=== PATIENT | female | born 1970 | race Caucasian/White ===

== ENCOUNTER → 2019-12-15 15:58 | Outpatient (CLI) | payer OTHER, SELFPAY ==
--- NOTE | ~2019-12-15 | MM_ITS ---
EXAMINATION: MM screening [facility] BI w josé miguel HISTORY: Screening mammogram TECHNIQUE: Craniocaudal and mediolateral oblique 3-D tomosynthesis images were obtained and synthetic 2-D images were generated. CAD analysis was submitted and interpreted. COMPARISON: 08/05/2018, 04/09/2017, 02/21/2015 BREAST PARENCHYMAL COMPOSITION: The breasts are heterogeneously dense, which may obscure small masses . FINDINGS: There is no evidence of suspicious mass, calcification, or architectural distortion to sugg est malignancy in either breast. There has been no suspicious interval change. IMPRESSION: 1. No mammographic evidence of malignancy. 2. Recommend routine screening mammography in one year. BI-RADS Category 1: Negative Reviewed, dictated and finalized at location A.
== END ==
PROVIDERS: PCP Family Medicine; Referring Provider Obstetrics & Gynecology; Visit Provider Physician Assistant
DX: Z12.31 Encounter for screening mammogram for malignant neoplasm of breast (principal)
CPT/HCPCS: 77063; 77067

== ENCOUNTER 2020-08-08 11:48 | Outpatient (NON) | payer OTHER, SELFPAY ==
[2020-08-08 14:53] LABS: Influenza Control Positive
== END 2020-08-08 11:49 ==
PROVIDERS: PCP Family Medicine; Visit Provider Nurse Practitioner Family
DX: R05 Cough (principal); R50.9 Fever, unspecified; R51.9 Headache, unspecified
CPT/HCPCS: 87804

== ENCOUNTER 2020-08-16 12:09 | Emergency (ER) | payer OTHER, SELFPAY ==
--- NOTE | ~2020-08-16 | XR_ITS ---
EXAMINATION: XR chest 1V portable EXAM DATE: 08/16/2020 13:53 INDICATION: COVID +. Asthma. TECHNIQUE: Portable AP frontal chest x-ray was obtained. There is no prior study for comparison. FINDINGS: Small amount of left lower lobe atelectasis or infiltrate. The lungs are otherwise clear. There are no pleural effusions. The cardiomediastinal silhouette is within normal limits. There is no pneumothorax suspected. The bones and soft tissues are unremarkable. IMPRESSION: Small amount of left lower lobe atelectasis or infiltrate. Reviewed, dictated and finalized at location A. EAR OFFICER
[2020-08-16 12:10] VITALS: BP 118/91; PULSE 100; RESP 16; TEMP 36.6; O2SAT 96
--- NOTE | 2020-08-16 12:18 | ECG_ITS ---
Measurements Intervals [place] Rate: 87 P: 53 [place]: 134 QRS: -30 QRSD: 77 T: -59 QT: 319 QTc: 385 Interpretive Statements SINUS RHYTHM WITH SINUS ARRHYTHMIA LOW QRS VOLTAGE IN PRECORDIAL LEADS BORDERLINE T WAVE ABNORMALITY- DIFFUSE LEADS BASELINE WANDER- V4-V6 BORDERLINE ECG Electronically Signed On 08-16-2020 17:04:31 JEWEL STRINGER by Sebastien Stone D.O.
[2020-08-16 13:21] VITALS: PULSE 78; RESP 16; O2SAT 98
--- NOTE | 2020-08-16 13:57 | ED.URI ---
HPI - URI/Sore Throat General Chief Complaint: Upper Respiratory Infection Stated Complaint: COVID + needs chest xray Time Seen by Provider: 08/16/20 13:24 Source: patient Mode of arrival: ambulatory Limitations: no limitations History of Present Illness HPI Narrative: Patient is a 49-year-old female who presents with shortness of breath with Covid positive test patient was sent by primary care due to feeling like she still has chest tightness and wheezing does have history of asthma using her inhaler was advised to come for chest x-ray patient otherwise notes that her headache has improved she does not currently have a fever and denies vomiting or diarrhea Related Data Allergies Allergy/AdvReac Type Severity Reaction Status Date / Time Penicillins AdvReac Unknown PT STATES Verified 08/07/20 12:48 IT DOESNT WORK AT ALL Review of Systems Review of Systems: All systems reviewed & are unremarkable except as noted in HPI and below PMFSH Past Medical History Medical History (Updated 08/16/20 @ 14:13 by Tom Maharaj PA-C) Asthma Social History Social History Smoking status: Never smoker Alcohol intake: current Exam Narrative: Exam Narrative: GENERAL: Well-appearing, well-nourished, and in no acute distress. HEAD: Normocephalic, atraumatic. EYES: PERRLA and EOMI. ENT: Nares clear, no rhinorrhea or epistaxis. Mucous membranes moist. CHEST: Clear to auscultation. No respiratory distress. Minimal crackles and slight wheezing noted HEART: Regular rate and rhythm. No murmur heard. Normal peripheral pulses. ABDOMEN: Soft, nontender, nondistended EXTREMITIES: Normal range of motion. No edema. SKIN: Warm, dry, no rash. NEURO: No focal deficits. Alert and oriented x3. PSYCH: Normal mood and affect. Course Course Emergency Course: Patient in the room evaluated negative chest radiograph or concerning findings does likely have Covid pneumonia patient had no hypoxemia no distress will be discharged back to home with plan follow-up with primary care given reasons to return was given an MDI instruct prior to discharge Consultations Consultation #1: Discussed case with primary care who would like the patient put on a Z-Edwin and will follow patient in clinic Date: 08/16/20 Time: 14:28 Vital Signs Vital signs: Vital Signs Temperature 98 F 08/16/20 12:10 Pulse Rate 100 08/16/20 12:10 Respiratory Rate 16 08/16/20 12:10 Blood Pressure 118/91 H 08/16/20 12:10 Pulse Oximetry 96 08/16/20 12:10 Temperature 98 F 08/16/20 12:10 Pulse Rate 68 08/16/20 14:03 Respiratory Rate 18 08/16/20 14:03 Blood Pressure 133/96 H 08/16/20 14:03 Pulse Oximetry 95 08/16/20 14:03 MDM - URI/Sore Throat MDM Narrative Medical decision making narrative: Patient with COVID-19 in the room aware of case findings treatment plan diagnosis agreeing to follow with primary care. Patient afebrile nontoxic-appearing no distress at this time Discharge Plan Discharge Clinical Impression: COVID-19 Patient Disposition: Home, Self-Care Condition: Stable Instructions: Antibiotic Form, COVID-19 (Coronavirus Disease 2019) (ED) Additional Instructions: Follow up with your primary care provider within 1-2 days. Go to ER for shortness of breath, difficulty breathing, chest pain, fever/chills, weakness, nauseau/vomitting, etc. or any other concerns. Stay well-hydrated Take any prescribed medications as directed. Self quarantine until you have further If you do not have a drug allergy to tylenol or motrin and can tolerate it then take tylenol or motrin as needed for discomfort/pain. Prescriptions: New azithromycin [Zithromax TRI-EDWIN] 500 mg tablet See Rx Instructions .ROUTE .COMPLEX Qty: 6 RF: 0 loratadine [Claritin] 10 mg tablet 10 mg PO DAILY PRN (Reason: allergy symptoms) Qty: 7 RF: 0 fluticasone propionate [Flonase Allergy Relief]
[2020-08-16 14:03] VITALS: BP 133/96; PULSE 68; RESP 18; O2SAT 95
--- NOTE | 2020-08-16 15:03 | PC.NURSE ---
Spoke with [facility] and they said they are done with pt. t states she received spacer from [facility]
[2020-08-16 15:06] VITALS: BP 129/97; PULSE 93; RESP 20; O2SAT 95
== END 2020-08-16 15:07 | disposition home or self-care (01) ==
PROVIDERS: Emergency Provider Emergency Medicine; PCP Family Medicine
DX: U07.1 COVID-19 (principal); J45.909 Unspecified asthma, uncomplicated
CPT/HCPCS: 71045; 93005; 99283

== ENCOUNTER → 2021-01-22 12:38 | Outpatient (CLI) | payer OTHER, SELFPAY ==
--- NOTE | ~2021-01-22 | MM_ITS ---
EXAMINATION: MM screening [facility] BI w josé miguel HISTORY: Screening mammogram TECHNIQUE: Craniocaudal and mediolateral oblique 3-D tomosynthesis images were obtained and synthetic 2-D images were generated. CAD analysis was submitted and interpreted. COMPARISON: 12/15/2019, 08/05/2018, 04/09/2017 BREAST PARENCHYMAL COMPOSITION: The breasts are heterogeneously dense, which may obscure small masses . FINDINGS: There is no evidence of suspicious mass, calcification, or architectural distortion to sugg est malignancy in either breast. There has been no suspicious interval change. IMPRESSION: 1. No mammographic evidence of malignancy. 2. Recommend routine screening mammography in one year. BI-RADS Category 1: Negative Reviewed, dictated and finalized at location A.
== END ==
PROVIDERS: PCP Family Medicine; Visit Provider Nurse Practitioner Obstetrics & Gynecology
DX: Z12.31 Encounter for screening mammogram for malignant neoplasm of breast (principal)
CPT/HCPCS: 77063; 77067

== ENCOUNTER → 2022-04-25 15:50 | Outpatient (CLI) | payer OTHER, SELFPAY ==
--- NOTE | ~2022-04-25 | MM_ITS ---
EXAMINATION: MM screening [facility] BI w josé miguel HISTORY: Screening TECHNIQUE: Craniocaudal and mediolateral oblique 3-D tomosynthesis images were obtained and synthetic 2-D images were generated. CAD analysis was submitted and interpreted. COMPARISON: Comparison to multiple prior studies sequentially, with oldest reviewed study dated 11/2013. BREAST PARENCHYMAL COMPOSITION: The breasts are heterogenously dense, which may obscure small masses FINDINGS: There are developing asymmetries in the periareolar location of the left breast, slightly l ateral. The right breast is stable without evidence for malignancy. IMPRESSION: 1. Developing left breast asymmetries. 2. Additional mammographic views and possible breast ultrasound are recommended. BI-RADS Category 0: Incomplete: Needs additional imaging evaluation. Reviewed, dictated and finalized at location A. IMPRESSION: 1. Developing left breast asymmetries. 2. Additional mammographic views and possible breast ultrasound are recommended . BI-RADS Category 0: Incomplete: Needs additional imaging evaluation.
== END ==
PROVIDERS: PCP Family Medicine; Visit Provider Family Medicine
DX: Z12.31 Encounter for screening mammogram for malignant neoplasm of breast (principal); R92.8 Other abnormal and inconclusive findings on diagnostic imaging of breast
CPT/HCPCS: 77063; 77067

== ENCOUNTER → 2022-05-14 14:25 | Outpatient (CLI) | payer OTHER, SELFPAY ==
--- NOTE | ~2022-05-14 | MM_ITS ---
EXAMINATION: MM diagnostic [facility] w josé miguel HISTORY: Left breast asymmetry on screening mammogram TECHNIQUE: Additional 3-D tomosynthesis images of the left breast were performed and synthetic 2-D im ages were generated. CAD analysis was submitted and interpreted. COMPARISON: 04/25/2022, 01/22/2021, 12/15/2019 FINDINGS: There is a return to baseline fibroglandular appearance with spot compression of the left b reast in the area questioned on screening mammogram. IMPRESSION: 1. No mammographic evidence of malignancy. 2. Recommend routine screening mammography in one year. BI-RADS Category 1: Negative Reviewed, dictated and finalized at location A.
== END ==
PROVIDERS: PCP Family Medicine; Visit Provider Nurse Practitioner Family
DX: R92.8 Other abnormal and inconclusive findings on diagnostic imaging of breast (principal)
CPT/HCPCS: 77061; 77065; G0279

== ENCOUNTER 2022-09-06 08:57 | Outpatient (CLI) | payer OTHER, SELFPAY | END 2022-09-06 08:58 | disposition home or self-care (01) | LOC: ANHAUDIO 08:58 | PROVIDERS: PCP Family Medicine; Visit Provider Nurse Practitioner Family | DX: H93.19 Tinnitus, unspecified ear (principal) | CPT/HCPCS: 92552; 92556; 92567 ==

== ENCOUNTER 2022-09-12 19:35 | Emergency (ER) | payer OTHER, SELFPAY ==
--- NOTE | ~2022-09-12 | XR_ITS ---
EXAMINATION: XR chest 2V 09/12/2022 21:31 INDICATION: Dizziness PROCEDURE: 2 view chest COMPARISON: 08/16/2020 FINDINGS: The lungs are clear. The cardiomediastinal silhouette is within normal limits. There are no pleural effusions. There is no pneumothorax suspected. IMPRESSION: 1: NO ACUTE CARDIOPULMONARY DISEASE. Reviewed, dictated and finalized at location A. CH ENGINEER
--- NOTE | ~2022-09-12 | CT_ITS ---
EXAMINATION: CT BRAIN W/O DATE: 09/12/2022 21:35 INDICATION: Dizziness TECHNIQUE: Computed tomography (CT) of the head was performed without intravenous contrast. The dose- length product was 605.33 mGy-cm. Automated exposure control and iterative reconstruction technique w ere employed. COMPARISON: No prior studies for comparison. FINDINGS: Normal brain parenchymal volume for age. Normal vee-white differentiation. No acute intrac ranial hemorrhage, infarction, mass or mass effect. No ventriculomegaly or midline shift. Midline sagittal images demonstrate a normal corpus callosum, c raniovertebral junction and sella turcica. Basilar cisterns are patent. Paranasal sinuses and mastoids are pneumatized. No depressed skull fractures. IMPRESSION: 1. No acute intracranial abnormality. Reviewed, dictated and finalized at location A. WARE ENGINEER [employer]PLICATIONS
[2022-09-12 19:39] VITALS: BP 126/56; PULSE 85; RESP 18; TEMP 36; O2SAT 98
--- NOTE | 2022-09-12 19:43 | ECG_ITS ---
Measurements Intervals [place] Rate: 85 P: 46 [place]: 149 QRS: 1 QRSD: 73 T: 28 QT: 357 QTc: 427 Interpretive Statements SINUS RHYTHM WITH SINUS ARRHYTHMIA LOW QRS VOLTAGE IN PRECORDIAL LEADS [QRS DEFLECTION < 1.0 mV IN CHEST LEADS] MILD NONSPECIFIC T-WAVE ABNORMALITY COMPARED TO ECG 08/16/2020 12:24:36 NO SIGNIFICANT CHANGES Electronically Signed On 09-13-2022 7:44:45 ESCROW SECRETARY by Kevin Andrews M.D.
[2022-09-12 21:46] VITALS: BP 126/78; PULSE 76; RESP 18; O2SAT 99
--- NOTE | 2022-09-12 22:01 | ED.DIZZY ---
HPI - Dizziness General Chief Complaint: Dizziness <Josie Barboza PA-C - Last Filed: 09/13/22 00:43> Stated Complaint: bilateral arm numbness, dizziness since last night <NAYELI Salmeron Last Filed: 09/13/22 00:43> Time Seen by Provider: 09/12/22 21:11 <NAYELI Salmeron Last Filed: 09/13/22 00:43> Source: patient <NAYELI Salmeron Last Filed: 09/13/22 00:43> Mode of arrival: ambulatory <NAYELI Salmeron Last Filed: 09/13/22 00:43> Limitations: no limitations <NAYELI Salmeron Last Filed: 09/13/22 00:43> History of Present Illness HPI Narrative: This is a 51 year old female that presents to the ER for dizziness ongoing over the last couple of weeks. Worse with position changes. Reports feeling woozy/lightheaded upon standing. She was evaluated by her PCP for this and prescribed a steroid and Z pack. She has finished this with little relief. Reports over the last couple of days. She has also noted chest tightness and felt like she couldn't catch her breath. She reports she has had weakness in her arms. Reports she has had palpitations. Reports she had a headache earlier today that was relieved with an anti-inflammatory. Denies vision changes, vomiting or numbness. <Josie Barboza PA-C - Last Filed: 09/13/22 00:43> Related Data Allergies/Adverse Reactions: Allergies Allergy/AdvReac Type Severity Reaction Status Date / Time Penicillins AdvReac Unknown PT STATES Verified 08/22/22 15:09 IT DOESNT WORK AT ALL <NAYELI Salmeron Last Filed: 09/13/22 00:43> Review of Systems Review of Systems: CONSTITUTIONAL: Denies fever EYES: Denies visual changes ENT: Denies congestion CARDIOVASCULAR: Denies current chest pain, or edema. RESPIRATORY: Denies current dyspnea. GASTROINTESTINAL: Denies vomiting GENITOURINARY: Denies dysuria or hematuria. SKIN: Denies rash NEUROLOGIC: Reports weakness. Denies numbness PSYCHIATRIC: Reports anxiety <Josie Barboza PA-C - Last Filed: 09/13/22 00:43> All systems reviewed & are unremarkable except as noted in HPI and below <Josie Barboza PA-C - Last Filed: 09/13/22 00:43> PMFSH Past Medical History Medical History: Medical History (Updated 09/14/22 @ 00:00 by Ras Purdy) Asthma BMI 28.0-28.9,adult BMI 30.0-30.9,adult Body mass index [BMI] 27.0-27.9, adult Encounter for screening colonoscopy Fatigue History of vaginal delivery Menopausal hot flushes Screening for lipid disorders Screening mammogram for high-risk patient <Josie Barboza PA-C - Last Filed: 09/13/22 00:43> Surgical History Surgical History: Surgical History History of repair of ACL <Josie Barboza PA-C - Last Filed: 09/13/22 00:43> Family History Family History: Family History Father Throat cancer Mother Heart disease Sibling Gallstones Other Hypertension <Josie Barboza PA-C - Last Filed: 09/13/22 00:43> Social History Social History: Social History Smoking status: Never smoker Second hand tobacco smoke exposure: Yes Alcohol intake: current Substance use: never Substance use type: does not use 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 HEAD: Normocephalic, atraumatic. EYES: PERRLA and EOMI. ENT: Nares clear, no rhinorrhea or epistaxis. Mucous membranes moist. Oropharynx without tonsillar hypertrophy exudate or other lesions. Bilateral TMs pearly vee non-bulging NECK: Supple. No adenopathy or masses. CHEST: Clear to auscultation. No respiratory distress. No wheezes rales o
[2022-09-12 22:14] LABS: Basophils Percent Auto 0.3 % (0.2-1.2); Eosinophils Absolute Auto 0.2 K/mm3 (0-0.3); Eosinophils Percent Auto 2.4 % (0-4.4); Hematocrit 43.4 % (37.0-47.0); Hemoglobin 14.4 g/dL (12.0-15.0); Immature Granulocyte Absolute 0.04 K/mm3 (0.00-0.031); Immature Granulocyte Percent A 0.4 % (0-0.5); Lymphocytes Absolute Auto 2.38 K/mm3 (0.9-3.2); Lymphocytes Percent Auto 24.9 % (18.3-44.2); Mean Corpuscular HGB Conc 33.2 g/dl (32-36); Mean Corpuscular Hemoglobin 30.1 pg (26-34); Mean Corpuscular Volume 90.6 fl (80-100); Mean Platelet Volume 9.6 fl (7.4-10.4); Monocytes Absolute Auto 0.8 K/mm3 (0.1-0.6); Monocytes Percent Auto 8.7 % (2.6-8.5); Neutrophils Absolute Auto 6.1 K/mm3 (1.3-6.7); Neutrophils Percent Auto 63.3 % (45.5-73.1); Platelet Count Result 227 k/mm3 (150-375); Red Blood Count 4.79 M/mm3 (4.2-5.4); Red Cell Distribution Width 12.4 % (11.5-14.5); White Blood Count 9.6 K/mm3 (4.5-10.0)
[2022-09-12] MEDS: SODIUM CHLORIDE 0.9% IV 500 ML 999 ML IV CONT (22:19)
[2022-09-12] MEDS: MECLIZINE HCL 25 MG TABLET PO (22:19)
[2022-09-12] MEDS: ONDANSETRON INJ 4 MG/2 ML VIAL IV PUSH (22:19)
[2022-09-12 22:22] LABS: Alanine Aminotransferase 45 U/L (6-35); Albumin Level 4.2 g/dL (3.5-5.1); Alkaline Phosphatase 79 U/L (38-126); Anion Gap 4 mmol/L (8-16); Aspartate Amino Transferase 28 U/L (14-36); Bilirubin,Total 0.7 mg/dL (0.2-1.3); Blood Urea Nitrogen 18 mg/dL (7-17); Calcium 8.9 mg/dL (8.4-10.2); Carbon Dioxide 32 mmol/L (22-30); Chloride 105 mmol/L (98-107); Estimated CRCL calculation 69 ml/min; Estimated Glomerular Filt Rate > 60; Glucose 120 mg/dL (65-110); Potassium 3.8 mmol/L (3.4-5.0); Sodium 141 mmol/L (137-145)
[2022-09-12 22:34] LABS: Troponin I < 0.012 ng/mL (0.000-0.034)
[2022-09-12 23:26] LABS: INR 1.1; Partial Thromboplastin Time 25.9 SECONDS (22.3-36.8); Prothrombin Time 13.4 Seconds (11.1-14.7)
[2022-09-12 23:29] LABS: D Dimer 0.48 ug/mL (<0.48)
[2022-09-13 00:32] VITALS: TEMP 36.9
== END 2022-09-13 02:47 | disposition home or self-care (01) ==
PROVIDERS: Physician Assistant; Emergency Provider Emergency Medicine; PCP Family Medicine
DX: R42 Dizziness and giddiness (principal); J45.909 Unspecified asthma, uncomplicated; Z77.22 Contact with and (suspected) exposure to environmental tobacco smoke (acute) (chronic); R94.31 Abnormal electrocardiogram [ECG] [EKG]
CPT/HCPCS: 36415; 70450; 71046; 80053; 84484; 85025; 85380; 85610; 85730; 93005; 96374; 96375; 99284; A9270; J0131; J2405; J7040

== ENCOUNTER 2022-11-27 15:49 | Outpatient (CLI) | payer OTHER, SELFPAY ==
--- NOTE | ~2022-11-27 | XR_ITS ---
EXAMINATION: XR chest 2V 11/27/2022 16:04 INDICATION: Cough and tachycardia PROCEDURE: 2 view chest COMPARISON: 09/12/2022 FINDINGS: The lungs are clear. There is a battery pack overlying the left chest. There is minimal lef t basilar scarring, unchanged. The cardiomediastinal silhouette is within normal limits. There are n o pleural effusions. There is no pneumothorax suspected. IMPRESSION: 1: NO ACUTE CARDIOPULMONARY DISEASE. Reviewed, dictated and finalized at location B. OSURGICAL NURSE
== END 2022-11-27 15:50 | disposition home or self-care (01) ==
LOC: ANHIMG 15:51
PROVIDERS: PCP Family Medicine; Visit Provider Nurse Practitioner Family
DX: R05.9 Cough, unspecified (principal)
CPT/HCPCS: 71046

== ENCOUNTER → 2023-05-22 14:15 | Outpatient (CLI) | payer OTHER, SELFPAY ==
--- NOTE | ~2023-05-22 | MM_ITS ---
EXAMINATION: MM screening [facility] BI w josé miguel HISTORY: Screening TECHNIQUE: Craniocaudal and mediolateral oblique 3-D tomosynthesis images were obtained and synthetic 2-D images were generated. CAD analysis was submitted and interpreted. COMPARISON: Comparison to multiple prior studies sequentially, with oldest reviewed study dated 02/2017. BREAST PARENCHYMAL COMPOSITION: Breast composed of scattered areas of fibroglandular density FINDINGS: There is no evidence of suspicious mass, calcification, or architectural distortion to sugg est malignancy in either breast. There has been no suspicious interval change. IMPRESSION: 1. No mammographic evidence of malignancy. 2. Recommend routine screening mammography in one year. BI-RADS Category 1: Negative Reviewed, dictated and finalized at location A.
== END ==
PROVIDERS: PCP Registered Nurse; Visit Provider Registered Nurse
DX: Z12.31 Encounter for screening mammogram for malignant neoplasm of breast (principal)
CPT/HCPCS: 77063; 77067

== ENCOUNTER → 2023-09-22 09:56 | Outpatient (CLI) | payer OTHER, SELFPAY ==
--- NOTE | ~2023-09-22 | US_ITS ---
Abdominal Sonogram: Real-time sonographic imaging of the abdomen was performed. Clinical History: Abdominal pain Findings: The liver appears normal with no evidence of bile duct dilatation. Suspected 4 cm hyperech oic right hepatic lobe mass present. Probable additional smaller 1.2 cm hyperechoic hepatic mass also noted. There is a third hyperechoic mass measuring 1.9 cm. Main portal vein demonstrates normal dire ction of flow. The spleen is normal in size without evidence of focal lesion. The gallbladder is wel l distended, and appears normal with no evidence of gallstone or wall thickening. The common bile carlie t measures 5 mm. The visualized pancreas, aorta, and IVC are unremarkable. The right kidney measure s 10.6 cm in length and the left kidney measures 11.9 cm. There is no hydronephrosis or renal calcul us. Impression: Hyperechoic hepatic masses, as detailed above, most likely hemangiomas. Pre and postcontrast MR advis ed to confirm this diagnosis. Reviewed, dictated and finalized at location M. RACT CLERK Impression: Hyperechoic hepatic masses, as detailed above, most likely hemangiomas. Pre and postcontrast MR advised to confirm this diagnosis.
== END ==
PROVIDERS: PCP Nurse Practitioner Adult Health; Visit Provider Nurse Practitioner Adult Health
DX: R16.0 Hepatomegaly, not elsewhere classified (principal)
CPT/HCPCS: 76700

== ENCOUNTER 2023-11-23 16:41 | Emergency (ER) | payer OTHER, SELFPAY ==
[2023-11-23 16:52] VITALS: BP 110/77; PULSE 105; RESP 18; TEMP 37.9; O2SAT 94
[2023-11-23 16:54] VITALS: BP 110/77; PULSE 105; RESP 18; TEMP 37.9; O2SAT 94
--- NOTE | 2023-11-23 17:20 | ED.URI ---
HPI - URI/Sore Throat General Chief Complaint: Upper Respiratory Infection Stated Complaint: sorethroat Time Seen by Provider: 11/23/23 17:01 Source: patient and RN notes reviewed Mode of arrival: ambulatory Limitations: no limitations History of Present Illness HPI Narrative: Patient presents today complaining of sore throat, headache, fatigue since yesterday with fever up to 101 today. Denies cough or shortness of breath. She has tried ibuprofen with relief. Pain increases with swallowing. Currently rates her pain 5/10. States has been was sick last week with influenza A. History of asthma for which she uses Dulera. She did not use her Dulera this morning. Related Data Home Medications Medication Instructions Recorded Confirmed multivitamin with minerals-folic tablet PO 03/06/23 04/21/23 acid 200 mcg chewable tablet (Adult Multivitamin Gummies) cholecalciferol (vitamin D3) 1,250 1,250 mcg PO WEEKLY 09/17/23 mcg (50,000 unit) tablet loratadine 10 mg tablet (Allergy 10 mg PO DAILY 09/17/23 Relief (loratadine)) mometasone-formoterol HFA 50 mcg-5 2 puff inhalation Q12H 09/17/23 mcg/actuation aerosol inhaler (Dulera) lactobacillus combination no.8 3 cell 11/23/23 billion cell capsule Allergies Allergy/AdvReac Type Severity Reaction Status Date / Time Penicillins AdvReac Unknown PT STATES Verified 11/23/23 16:53 IT DOESNT WORK AT ALL Review of Systems Review of Systems: CONSTITUTIONAL: Denies body aches, chills, or sweats.+ fever, fatigue EYES: Denies visual changes, redness, or discharge. ENT: Denies rhinorrhea, congestion, or otalgia.+ sore throat CARDIOVASCULAR: Denies chest pain, palpitations, or edema. RESPIRATORY: Denies cough or dyspnea. GASTROINTESTINAL: Denies abdominal pain, nausea, vomiting, or diarrhea. GENITOURINARY: Denies dysuria or hematuria. SKIN: Denies rash, itching, or wounds. MUSCULOSKELETAL: Denies back pain, joint pain, or myalgia. NEUROLOGIC: Denies numbness, tingling, or weakness.+ headache PSYCH: Denies depression or anxiety. [facility] Past Medical History Medical History Asthma Bloating BMI 28.0-28.9,adult BMI 29.0-29.9,adult BMI 30.0-30.9,adult Body mass index [BMI] 27.0-27.9, adult Encounter for screening colonoscopy Fatigue GERD (gastroesophageal reflux disease) Hemangioma History of IBS History of tachycardia History of vaginal delivery History of vertigo Liver mass Menopausal hot flushes Right upper quadrant pain Screening for lipid disorders Screening mammogram for high-risk patient Surgical History Surgical History History of repair of ACL Family History Family History Father Throat cancer Cerebrovascular accident Mother Heart disease Sibling Gallstones Other Hypertension Social History Social History Smoking status: Never smoker Second hand tobacco smoke exposure: Yes Alcohol intake: current Substance use: never Substance use type: does not use Lack of Transportation: No Lack of Food: Never True Current Housing: I Have Housing Concerned About Future Housing: No Difficulty Paying Gas/Electric Bills: No Difficulty Paying for Meds: No Currently Unemployed: No Education: Bachelor's Degree Difficulty w/ Childcare or Family Care: No Living arrangements: with family Occupation/Education: occupation 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 Please see nursing chart for further information. There is no relevant family history
== END 2023-11-23 17:19 | disposition home or self-care (01) ==
PROVIDERS: Emergency Provider Nurse Practitioner; PCP Family Medicine
DX: U07.1 COVID-19 (principal)
CPT/HCPCS: 87081; 87426; 87804; 87880; 99213; G0463

== ENCOUNTER 2024-01-23 08:01 | Outpatient (CLI) | payer OTHER, SELFPAY ==
--- NOTE | ~2024-01-23 | CT_ITS ---
CT of the Abdomen and Pelvis: Indication: Hemangioma Technique: 2.5 mm axial scans were obtained through the abdomen and pelvis prior to and following in travenous administration of 100 cc of Omnipaque 350. Dose reduction technique was used on this scan b y utilizing automated exposure control and iterative reconstruction technique. The dose-length produc t (DLP) was 956.28 mGy-cm. Correlation made with ultrasound dated 09/22/2023. Findings: Scans through the lung bases demonstrate linear scarring right middle lobe and left lung b ase with mild bronchiolectasis. There is a 4.8 x 3.8 cm hypodense mass in the central liver, relatively nonenhancing over the imaging phases on this exam. There is a similar-appearing indeterminate 1.5 cm lesion in the inferior, poste rior hepatic lobe (axial image 42). Several more conspicuous, discrete hypodense left hepatic lobe le sions have an appearance most suggestive of cysts. The spleen, pancreas, gallbladder, adrenals and ki dneys are within normal limits. No evidence of aortic aneurysm. No lymphadenopathy. No bowel obstruction or bowel wall thickening. There is no evidence to suggest acute appendicitis. Images through the pelvis were performed. Urinary bladder unremarkable. IUD in place. No adnexal mass seen. No ascites. Impression: Dominant 4.8 x 3.8 cm hypodense central hepatic mass, with multiple additional smaller hepatic lesion s, as above. Lesions do not demonstrate classic imaging features of hemangioma on this exam. Diagnost ic and sections include atypical hemangiomas versus other mass lesions. Recommend pre and postcontras t MR and/or nuclear medicine red blood cell scan to further evaluate for atypical hemangiomas versus other etiology for mass lesions. Probable chronic findings at the lung bases, as above. Reviewed, dictated and finalized at location M. Impression: Dominant 4.8 x 3.8 cm hypodense central hepatic mass, with multiple additional smaller hepatic lesions, as above. Lesions do not demonstrate classic imaging f eatures of hemangioma on this exam. Diagnostic and sections include atypical he mangiomas versus other mass lesions. Recommend pre and postcontrast MR and/or [facility] red blood cell scan to further evaluate for atypical hemangioma s versus other etiology for mass lesions. Probable chronic findings at the lung bases, as above.
[2024-01-23 08:47] LABS: Basophils Percent Auto 0.2 % (0.2-1.2); Eosinophils Absolute Auto 0.1 K/mm3 (0-0.3); Eosinophils Percent Auto 2.3 % (0-4.4); Hematocrit 41.5 % (37.0-47.0); Hemoglobin 13.5 g/dL (12.0-15.0); Immature Granulocyte Absolute 0.02 K/mm3 (0.00-0.031); Immature Granulocyte Percent A 0.4 % (0-0.5); Lymphocytes Absolute Auto 1.49 K/mm3 (0.9-3.2); Lymphocytes Percent Auto 28.4 % (18.3-44.2); Mean Corpuscular HGB Conc 32.5 g/dl (32-36); Mean Corpuscular Hemoglobin 29.9 pg (26-34); Mean Corpuscular Volume 91.8 fl (80-100); Mean Platelet Volume 9.4 fl (7.4-10.4); Monocytes Absolute Auto 0.5 K/mm3 (0.1-0.6); Monocytes Percent Auto 9.9 % (2.6-8.5); Neutrophils Absolute Auto 3.1 K/mm3 (1.3-6.7); Neutrophils Percent Auto 58.8 % (45.5-73.1); Platelet Count Result 192 k/mm3 (150-375); Red Blood Count 4.52 M/mm3 (4.2-5.4); Red Cell Distribution Width 12.4 % (11.5-14.5); White Blood Count 5.3 K/mm3 (4.5-10.0)
[2024-01-23 09:04] LABS: Alanine Aminotransferase 16 U/L (6-35); Alkaline Phosphatase 68 U/L (38-126); Anion Gap 3 mmol/L (4-12); Aspartate Amino Transferase 18 U/L (14-36); Bilirubin,Total 0.6 mg/dL (0.2-1.3); Blood Urea Nitrogen 14 mg/dL (7-17); Calcium 9.3 mg/dL (8.4-10.2); Carbon Dioxide 30 mmol/L (22-30); Chloride 107 mmol/L (98-107); Estimated Glomerular Filt Rate > 60; Glucose 102 mg/dL (65-110); Potassium 4.4 mmol/L (3.4-5.0); Sodium 140 mmol/L (137-145)
== END 2024-01-23 08:02 | disposition home or self-care (01) ==
LOC: ANHIMG 08:02
PROVIDERS: PCP Family Medicine; Visit Provider Nurse Practitioner Adult Health
DX: D18.00 Hemangioma unspecified site (principal)
CPT/HCPCS: 36415; 74178; 80053; 85025; Q9967

== ENCOUNTER 2024-07-01 14:03 | Outpatient (CLI) | payer OTHER, SELFPAY ==
--- NOTE | ~2024-07-01 | MM_ITS ---
EXAMINATION: MM screening [facility] BI w josé miguel HISTORY: Screening TECHNIQUE: Craniocaudal and mediolateral oblique 3-D tomosynthesis images were obtained and synthetic 2-D images were generated. CAD analysis was submitted and interpreted. COMPARISON: Comparison to multiple prior studies sequentially, with oldest reviewed study dated 07/08. BREAST PARENCHYMAL COMPOSITION: Not dense: There are scattered areas of fibroglandular density. FINDINGS: There is no evidence of suspicious mass, calcification, or architectural distortion to sugg est malignancy in either breast. There has been no suspicious interval change. IMPRESSION: 1. No mammographic evidence of malignancy. 2. Recommend routine screening mammography in one year. BI-RADS Category 1: Negative Reviewed, dictated and finalized at location B.
== END 2024-07-01 14:04 | disposition home or self-care (01) ==
LOC: MICIMG 14:05
PROVIDERS: PCP Nurse Practitioner Family; Visit Provider Nurse Practitioner Family
DX: Z12.31 Encounter for screening mammogram for malignant neoplasm of breast (principal)
CPT/HCPCS: 77063; 77067

== ENCOUNTER 2024-08-17 14:18 | Emergency (ER) | payer OTHER, SELFPAY ==
--- NOTE | ~2024-08-17 | XR_ITS ---
XR chest 2V Ordering provider: Jessica Norwood APRN History: 53 years Female with . cough x 1 day . Comparison: None. FINDINGS: MEDIASTINUM: The cardiac silhouette is not enlarged. LUNGS: No effusions or pneumothorax. Prominent markings in the lower lobes. Possibility of atelectasi s versus minimal pneumonia in the middle lobe is not excluded. OTHER: No free air under the diaphragm. IMPRESSION: Prominent markings in the lower lobes with possible atelectasis versus early pneumonia in the middle lobe. Reviewed, dictated and finalized at location A. MENT CONTROL CLERK IMPRESSION: Prominent markings in the lower lobes with possible atelectasis versus early pn eumonia in the middle lobe.
--- NOTE | 2024-08-17 14:30 | ED.URI ---
HPI - URI/Sore Throat General Chief Complaint: Upper Respiratory Infection Stated Complaint: cough / fever / sore throat Time Seen by Provider: 08/17/24 14:35 Source: patient, RN notes reviewed and old records reviewed Mode of arrival: ambulatory Limitations: no limitations History of Present Illness HPI Narrative: 53-year-old female presents to the [facility] with 2 day history of cough, fevers, sore throat. Related Data Home Medications Medication Instructions Recorded Confirmed cholecalciferol (vitamin D3) 1,250 1,250 mcg PO WEEKLY 09/17/23 08/17/24 mcg (50,000 unit) tablet loratadine 10 mg tablet (Allergy 10 mg PO DAILY 09/17/23 08/17/24 Relief (loratadine)) Allergies Allergy/AdvReac Type Severity Reaction Status Date / Time Penicillins AdvReac Unknown PT STATES Verified 05/10/24 12:32 IT DOESNT WORK AT ALL Review of Systems Review of Systems: All systems reviewed & are unremarkable except as noted in HPI and below Constitutional: Constitutional: Reports as per HPI ENT: Reports as per HPI and Reports sore throat Cardiovascular: Cardiovascular: Reports no additional cardiovascular complaints, Denies chest pain and Denies dyspnea Respiratory: Respiratory: Reports as per HPI, Denies chest congestion, Reports cough and Denies dyspnea Gastrointestinal: Gastrointestinal: Reports no additional gastrointestinal complaints, Denies abdominal pain, Denies nausea and Denies vomiting Musculoskeletal: Musculoskeletal: Reports no additional musculoskeletal complaints Integumentary/Breasts: Skin/Breast: Reports system reviewed and no additional complaints, except as docu PMFSH Past Medical History Medical History Asthma Bloating BMI 28.0-28.9,adult BMI 29.0-29.9,adult BMI 30.0-30.9,adult Body mass index [BMI] 27.0-27.9, adult Encounter for screening colonoscopy Fatigue GERD (gastroesophageal reflux disease) Hemangioma History of IBS History of tachycardia History of vaginal delivery History of vertigo Liver mass Menopausal hot flushes Right upper quadrant pain RLQ abdominal pain Screening for lipid disorders Screening mammogram for high-risk patient Weight gain Surgical History Surgical History History of repair of ACL Family History Family History Father Throat cancer Cerebrovascular accident Mother Heart disease Sibling Gallstones Other Hypertension Social History Social History Smoking status: Never smoker Second hand tobacco smoke exposure: Yes Alcohol intake: current Substance use: never Substance use type: does not use Do You Feel Safe in your Home?: Yes Lack of Transportation: No Lack of Food: Never True Current Housing: I Have Housing Concerned About Future Housing: No Difficulty Paying Gas/Electric Bills: No Difficulty Paying for Meds: No Currently Unemployed: No Education: Bachelor's Degree Difficulty w/ Childcare or Family Care: No Living arrangements: with family Occupation/Education: occupation 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 There is no relevant family history pertinent to the patient complaint. Exam Const: General: cooperative, healthy appearing, comfortable, no acute distress, well developed, alert and well nourished Nutritional Appearance: well nourished Orientation/consciousness: patient oriented x3 Limitations: no limitations HENMT: Head: normal to inspection Ears: hearing grossly normal bilaterally, external ears normal, TM's normal bilaterally, EAC's normal, mastoids normal and no periauricular adenopathy Face/Nose/Sinus: Normal external nose present, normal facial exam and face symmetric Face and sinus: normal facial exam and face symmetric Mouth: Yes Normal oral and palatal mucosa present, Yes lip normal and Yes tongue normal Throat: posterior oropharynx normal, uvula midline and no uvular edema Eyes: General: appearance normal, both eyes and all related structures Alignment and Position: alignment normal Periorbital: periorbital findings normal Neck: Neck: normal visual inspection, full ROM, no lymphadenopathy and no meningeal signs Chest: Chest palpation & inspection: normal inspection of the chest Resp: Effort & Inspection: normal respiratory effort and able to speak in complete sentences Auscultation: clear to auscultation bilaterally, no crackles, no rales, no rhonchi and no wheezes Cardio: Rate: regular rate Skin: General skin exam: normal color and no rashes or lesions noted Lesions: no lesions Rashes: no rashes Wounds: no wounds Neuro: General: patient oriented x3, gait normal, tone normal, moves all extremities and no meningeal signs Cognition (Neuro): normal cognition Speech: normal speech Gait exam (Neuro): Normal gait present Extrem: General: normal to inspection, full ROM, capillary refill normal and normal gait Psych: Appearance: grossly normal and well kempt Mental Status: mental status grossly normal Speech and movement: Normal speech and movement present and Clear speech present Affect: normal affect Attitude: cooperative Course Course Level of Care: Express Care Visit Vital Signs Vital signs: Vital Signs Temperature 97.8 F 08/17/24 14:32 Pulse Rate 95 08/17/24 14:32 Respiratory Rate 16 08/17/24 14:32 Blood Pressure 105/82 08/17/24 14:32 Pulse Oximetry 97 08/17/24 14:32 Oxygen Delivery Room Air 08/17/24 14:32 Temperature 97.8 F 08/17/24 14:32 Pulse Rate 95 08/17/24 14:32 Respiratory Rate 16 08/17/24 14:32 Blood Pressure 105/82 08/17/24 14:32 Pulse Oximetry 97 08/17/24 14:32 Oxygen Delivery Room Air 08/17/24 14:32 Reviewed MDM - URI/Sore Throat MDM Narrative Medical decision making narrative: Patient sitting comfortably in exam room. Nontoxic, vitals stable. Patient in no acute distress Patient is flu, COVID, strep pr negative Chest x-ray showed atelectasis, possible early pneumonia, will treat Patient appropriate for outpatient treatment and follow-up Discharge instructions reviewed with patient, as well as provided in writing per nursing staff. The instructions also include specific and strict return/GO TO THE ER as well as f/u information. All questions have been answered, and the patient deny any further questions with discharge and discharge plan. Some parts of this dictation were generated by voice recognition software and may contain typographical and/or grammatical inaccuracies. Differential Diagnosis Differential diagnosis: Likely upper respiratory infection, otitis media, sinusitis, viral infection, bronchitis, influenza and pharyngitis Lab Data Labs: Lab Results 08/17/24 Range/Units 14:57 POC Influenza A Ag Negative (Negative) POC Influenza B Ag Negative (Negative) POC SARS CoV-2 Ag Negative (Negative) POC Grp A Strep Screen Negative (Negative) Reviewed Imaging Data Radiologist's impression: XR chest 2V Ordering provider: Jessica Norwood APRN History: 53 years Female with . cough x 1 day . Comparison: None. FINDINGS: MEDIASTINUM: The cardiac silhouette is not enlarged. LUNGS: No effusions or pneumothorax. Prominent markings in the lower lobes. Possibility of atelectasis versus minimal pneumonia in the middle lobe is not excluded. OTHER: No free air under the diaphragm. IMPRESSION: Prominent markings in the lower lobes with possible atelectasis versus early pneumonia in the middle lobe. Critical Care Time Critical Care Time Critical Care Time: No Discharge Plan Discharge Clinical Impression: Acute atelectasis, Pneumonia Patient Disposition: Home, Self-Care Condition: Stable Instructions: Community Acquired Pneumonia (DC), Atelectasis (ED) Additional Instructions: Your rapid strep swab was negative today at [facility]. A throat culture will be sent to the laboratory for further testing. If the test is positive, you will receive a phone call within 48 hours and an appropriate antibiotic will be initiated at that time. Your rapid COVID test were negative Your rapid flu test was negative Your chest x-ray showed atelectasis in your lower lobes and a possible early pneumonia in your right middle lobe. You been treated with an antibiotic. It is important you take 10 good deep breaths every hour while awake. -Alternate Tylenol and Motrin per package directions for fever or pain. -Antihistamine medication such as Benadryl at night and Zyrtec/Claritin/Estrella during the day can help improve symptoms. -doing daily nasal irrigations can help relieve pressure your sinuses. Things like a Neti pot -Use Flonase twice a day for 5 days then daily to help reduce the inflammation and dry up your sinuses. -You can also use Mucinex. Be sure to drink plenty of water with this medication at least 8 ounces with every dose and it is important to drink 8 to 10 glasses of water per day. Water is a natural decongestant -Eat and drink things that are easy to swallow, like tea or soup, or popsicles. -Oral rinses such as: Salt water gargles and/or may use topical anesthetic (eg. Chloraseptic spray) or lozenges to relieve dryness or throat pain). -Frequent hand washing or hand packer inspector is one of the best ways to prevent spread of infection. -Using a vaporizer or humidifier at night will also help thin secretions and help with coughing up phlegm. -Follow up with primary care provider in 7-10 days if condition is not improving - For new or worsening symptoms go directly to the nearest ER Patient Language: Yi Prescriptions: New doxycycline monohydrate 100 mg tablet 100 mg PO BID Qty: 14 0RF albuterol sulfate 90 mcg/actuation HFA aerosol inhaler 2 puff inhalation QID PRN (Reason: shortness of breath or wheezing) Qty: 6.7 0RF No Action loratadine [Allergy Relief (loratadine)] 10 mg tablet 10 mg PO DAILY Patient Comments: pulmonology-[facility] cholecalciferol (vitamin D3) 1,250 mcg (50,000 unit) tablet 1,250 mcg PO WEEKLY Follow-up/Referrals: Bryan Pollock MD [Primary Care Provider] - 1 Week (express care follow up ) Stand Alone Forms: Work/School Release IP Time of Disposition: 15:03
[2024-08-17 14:32] VITALS: BP 105/82; PULSE 95; RESP 16; TEMP 36.6; O2SAT 97
[2024-08-17 14:58] LABS: EDCOVIDSCREEN Negative (Negative); EDINFLUASCREEN Negative (Negative); EDINFLUBSCREEN Negative (Negative); EDSTREPNEGPOS1 Negative (Negative)
== END 2024-08-17 15:13 | disposition home or self-care (01) ==
PROVIDERS: Emergency Provider Nurse Practitioner; PCP Family Medicine
DX: J98.11 Atelectasis (principal); J18.9 Pneumonia, unspecified organism; Z20.822 Contact with and (suspected) exposure to COVID-19; J45.909 Unspecified asthma, uncomplicated; K21.9 Gastro-esophageal reflux disease without esophagitis
CPT/HCPCS: 71046; 87081; 87426; 87804; 87880; 99213; G0463

== ENCOUNTER 2024-11-01 10:34 | Emergency (ER) | payer OTHER, SELFPAY ==
--- NOTE | ~2024-11-01 | CT_ITS ---
CT of the Abdomen and Pelvis: Indication: Abdominal pain Technique: 2.5 mm axial scans were obtained through the abdomen and pelvis following intravenous adm inistration of 100 cc of Omnipaque 350. Dose reduction technique was used on this scan by utilizing a utomated exposure control and iterative reconstruction technique. The dose-length product (DLP) was 3 38.87 mGy-cm. COMPARISON: 01/23/2024 Findings: Scans through the lung bases demonstrates stable linear left basilar scarring. Dominant 5.3 x 3.7 cm hypodense mass in the central liver is unchanged from prior exam. Stable smalle r similar hypodense lesion in the inferior right hepatic lobe. Additional more circumscribed fluid at tenuation probable simple cysts are present scattered, predominantly in the left hepatic lobe, also u nchanged.. The spleen, pancreas, gallbladder, adrenals and kidneys are within normal limits. No evid ence of aortic aneurysm. No lymphadenopathy. There is wall thickening and pericolic inflammatory change at the proximal to mid sigmoid colon, comp atible diverticulitis/colitis. No abscess or free air. No bowel obstruction. Images through the pelvis were performed. 2 cm left ovarian cyst present. IUD in place. Urinary bladd er unremarkable. No ascites. Impression: Acute sigmoid diverticulitis, versus possibly other colitis, as detailed above. No abscess or free ai r. No bowel obstruction. Stable dominant 5.3 x 3.7 cm central hypodense hepatic mass with smaller, similar-appearing lesion in the inferior right hepatic lobe. These lesions remain indeterminate by imaging, though stability is a reassuring sign. Additional hepatic cysts, also unchanged. Reviewed, dictated and finalized at [facility]. OPE TECHNICIAN Impression: Acute sigmoid diverticulitis, versus possibly other colitis, as detailed above. No abscess or free air. No bowel obstruction. Stable dominant 5.3 x 3.7 cm central hypodense hepatic mass with smaller, simil ar-appearing lesion in the inferior right hepatic lobe. These lesions remain in determinate by imaging, though stability is a reassuring sign. Additional hepatic cysts, also unchanged.
[2024-11-01 11:22] VITALS: BP 110/71; PULSE 94; RESP 16; TEMP 36.9; O2SAT 98
--- NOTE | 2024-11-01 11:35 | ECG_ITS ---
Test Date: 2024-11-01 12:33:10 Measurements Intervals [place] Rate: 94 P: 42 AK: 156 QRS: -53 QRSD: 73 T: 26 QT: 322 QTc: 403 Interpretive Statements SINUS RHYTHM MARKED LEFT AXIS DEVIATION [QRS AXIS < -30] LOW QRS VOLTAGE IN PRECORDIAL LEADS [QRS DEFLECTION < 1.0 mV IN CHEST LEADS] POSSIBLE RIGHT VENTRICULAR CONDUCTION DELAY [RSR (QR) IN V1/V2] poor R-wave progression No previous ECG available for comparison Electronically Signed On 11-01-2024 13:38:31 LOGISTICS SERVICE REPRESENTATIVE by Adrian Marcano M.D.
--- NOTE | 2024-11-01 11:36 | ED_ITS ---
HPI - Abdominal Pain General Chief Complaint: Abdominal Pain <Kendra Jarvis APRN - Last Filed: 11/01/24 11:38> Stated Complaint: Left lower abd pain since Sat <Kendra Jarvis APRN - Last Filed: 11/01/24 11:38> Time Seen by Provider: 11/01/24 11:15 <Kendra Jarvis APRN - Last Filed: 11/01/24 11:38> Focused HPI: Patient is a 53-year-old female who presents to the ER with sharp lower left quadrant abdominal pain that started 2 days ago. She reports the pain is intermittent. Patient reports she has an IUD that was checks approximately 1 month ago. She reports she had a bowel movement yesterday that was normal for her. Patient denies any medical history besides asthma. She denies any chest pain, shortness of breath, recent fevers, back pain, urinary symptoms. GENERAL: Well-appearing, well-nourished, and in no acute distress. HEAD: Normocephalic, atraumatic. CHEST: Clear to auscultation. ?No respiratory distress. HEART: Regular rate and rhythm.? NEURO: ?Alert and oriented x3. ABDOMEN: + BS, LLQ pain increases with palpation Patient screened in triage and initial orders placed.? ?Additional care and disposition to be based upon?diagnostic testing and treatment. <Kendra Jarvis APRN - Last Filed: 11/01/24 11:38> Related Data Home Medications: Home Medications ?Medication ?Instructions ?Recorded ?Confirmed ?Last Taken ?Type cholecalciferol (vitamin D3) 1,250 1,250 mcg PO WEEKLY 09/17/23 08/17/24 Unknown History mcg (50,000 unit) tablet loratadine 10 mg tablet (Allergy 10 mg PO DAILY 09/17/23 08/17/24 Unknown History Relief (loratadine)) <Kendra Jarvis APRN - Last Filed: 11/01/24 11:38> Allergies/Adverse Reactions: Allergies Allergy/AdvReac Type Severity Reaction Status Date / Time Penicillins AdvReac Unknown PT STATES Verified 11/01/24 13:46 IT DOESNT WORK AT ALL <Kendra Jarvis APRN - Last Filed: 11/01/24 11:38> PMFSH Past Medical History Medical History: Medical History Asthma Bloating BMI 28.0-28.9,adult BMI 29.0-29.9,adult BMI 30.0-30.9,adult Body mass index [BMI] 27.0-27.9, adult Encounter for screening colonoscopy Fatigue GERD (gastroesophageal reflux disease) Hemangioma History of IBS History of tachycardia History of vaginal delivery History of vertigo Liver mass Menopausal hot flushes Right upper quadrant pain RLQ abdominal pain Screening for lipid disorders Screening mammogram for high-risk patient Weight gain <Kendra Jarvis APRN - Last Filed: 11/01/24 11:38> Surgical History Surgical History: Surgical History History of repair of ACL <Kendra Jarvis APRN - Last Filed: 11/01/24 11:38> Family History Family History: Family History Father Throat cancer Cerebrovascular accident Mother Heart disease Sibling Gallstones Other Hypertension <Kendra Jarvis APRN - Last Filed: 11/01/24 11:38> Social History Social History: Social History Smoking status: Never smoker Second hand tobacco smoke exposure: Yes Alcohol intake: current Substance use: never Substance use type: does not use Do You Feel Safe in your Home?: Yes Lack of Transportation: No Lack of Food: Never True Current Housing: I Have Housing Concerned About Future Housing: No Difficulty Paying Gas/Electric Bills: No Difficulty Paying for Meds: No Currently Unemployed: No Education: Bachelor's Degree Difficulty w/ Childcare or Family Care: No Living arrangements: with family Occupation/Education: occupation 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 Head: atraumatic. EYES: EOMI, NOSE: Atraumatic NECK: Trachea midline RESPIRATORY: No increased rate of breathing, CTAB CARDIOVASCULAR: RRR, ABDOMINAL: Non-distended, tender in the left lower quadrant MUSCULOSKELETAl: No obvious deformities NEURO: Alert. Moving 4/4 extremities SKIN:: Warm, dry. Normal color PSYCHIATRIC: Normal affect <Hans Guzman MD - Last Filed: 11/01/24 13:49> Course Vital Signs Vital signs: Vital Signs Temperature 98.4 F 11/01/24 11:22 Pulse Rate 94 11/01/24 11:22 Respiratory Rate 16 11/01/24 11:22 Blood Pressure 110/71 11/01/24 11:22 Pulse Oximetry 98 11/01/24 11:22 Oxygen Delivery Room Air 11/01/24 11:22 Temperature 98.4 F 11/01/24 11:22 Pulse Rate 94 11/01/24 11:22 Respiratory Rate 16 11/01/24 11:22 Blood Pressure 110/71 11/01/24 11:22 Pulse Oximetry 98 11/01/24 11:22 Oxygen Delivery Room Air 11/01/24 11:22 <Kendra Jarvis, FILM SOUND ENGINEER - Last Filed: 11/01/24 11:38> Vital Signs Temperature 98.4 F 11/01/24 11:22 Pulse Rate 94 11/01/24 11:22 Respiratory Rate 16 11/01/24 11:22 Blood Pressure 110/71 11/01/24 11:22 Pulse Oximetry 98 11/01/24 11:22 Oxygen Delivery Room Air 11/01/24 11:22 Temperature 98.4 F 11/01/24 11:22 Pulse Rate 94 11/01/24 11:22 Respiratory Rate 16 11/01/24 11:22 Blood Pressure 110/71 11/01/24 11:22 Pulse Oximetry 98 11/01/24 11:22 Oxygen Delivery Room Air 11/01/24 11:22 <Hans Guzman MD - Last Filed: 11/01/24 13:49> MDM - Abdominal Pain MDM Narrative Medical decision making narrative: -Course: 53-year-old female presenting quadrant pain. CT showed uncomplicated diverticulitis versus colitis. White count 11.6. Fevers of 100.1 at home. Patient will be discharged on a course of augmentin. Patient provided pain control and return precautions. Patient has an incidental liver mass on imaging. It is stable. Patient was informed of the mass and needs to be evaluated on an outpatient basis by her primary care physician. -DDX includes but is not limited to: Colitis, diverticulitis, gastroenteritis -Co-morbidities complicating care: Diverticulosis -Independent interpretation of studies: Labs imaging reviewed -Interventions: Dilaudid, Zofran, Toradol -Shared decision making / Disposition: Discharged. -RX Augmentin, Motrin, Tylenol <Hans Guzman MD - Last Filed: 11/01/24 13:49> Lab Data Result diagrams: 11/01/24 12:38 11/01/24 12:38 <Kendra Jarvis APRN - Last Filed: 11/01/24 11:38> Labs: Lab Results 11/01/24 11/01/24 Range/Units 12:38 13:08 WBC 11.6 H (4.5-10.0) K/mm3 RBC 4.95 (4.2-5.4) M/mm3 Hgb 15.2 H (12.0-15.0) g/dL Hct 44.7 (37.0-47.0) % MCV 90.3 (80-100) fl MCH 30.7 (26-34) pg MCHC 34.0 (32-36) g/dl RDW 12.2 (11.5-14.5) % Plt Count 189 (150-375) k/mm3 MPV 9.6 (7.4-10.4) fl Immature Gran % (Auto) 0.3 (0-0.5) % Neut % (Auto) 77.4 H (45.5-73.1) % Lymph % (Auto) 12.1 L (18.3-44.2) % [place] % (Auto) 9.7 H (2.6-8.5) % Eos % (Auto) 0.2 (0-4.4) % Baso % (Auto) 0.3 (0.2-1.2) % Lymph # (Auto) 1.40 (0.9-3.2) K/mm3 [place] # (Auto) 1.1 H (0.1-0.6) K/mm3 Eos # (Auto) 0.0 (0-0.3) K/mm3 Baso # (Auto) 0.0 (0.0-0.1) K/mm3 Abs Immat Gran (auto) 0.04 H (0.00-0.031) K/mm3 Absolute Neuts (auto) 9.0 H (1.3-6.7) K/mm3 Absolute Nucleated RBC 0.000 (0.0-0.012) K/mm3 Nucleated RBC % 0.0 (0.0-0.2) % PT 15.1 H (11.1-14.7) Seconds INR 1.1 APTT 28.1 (22.3-36.8) Seconds Sodium 134 L (137-145) mmol/L Potassium 4.0 (3.4-5.0) mmol/L Chloride 102 (98-107) mmol/L Carbon Dioxide 27 (22-30) mmol/L Anion Gap 5 (4-12) mmol/L BUN 13 (7-17) mg/dL Creatinine 0.68 L (0.7-1.0) mg/dL Estim Creat Clear Calc 78 ml/min Estimated GFR > 60 (59 - ) Glucose 98 (65-110) mg/dL Calcium 8.8 (8.4-10.2) mg/dL Total Bilirubin 1.6 H (0.2-1.3) mg/dL AST 25 (14-36) U/L ALT 28 (6-35) U/L Alkaline Phosphatase 74 (38-126) U/L Troponin I < 0.012 (0.000-0.034) ng/mL Total Protein 7.0 (6.3-8.2) g/dL Albumin 4.2 (3.5-5.1) g/dL Lipase 57 (23-300) U/L Urine Color Pending Urine Appearance Pending Urine pH Pending Ur Specific [place] Pending Urine Protein Pending Urine Glucose (UA) Pending Urine Ketones Pending Ur Blood (Man) Pending Urine Nitrate Pending Urine Bilirubin Pending Urine Urobilinogen Pending Leukocyte Esterase Rfl Pending <Kendra Jarvis, FILM SOUND ENGINEER - Last Filed: 11/01/24 11:38> Lab Results 11/01/24 11/01/24 Range/Units 12:38 13:08 WBC 11.6 H (4.5-10.0) K/mm3 RBC 4.95 (4.2-5.4) M/mm3 Hgb 15.2 H (12.0-15.0) g/dL Hct 44.7 (37.0-47.0) % MCV 90.3 (80-100) fl MCH 30.7 (26-34) pg MCHC 34.0 (32-36) g/dl RDW 12.2 (11.5-14.5) % Plt Count 189 (150-375) k/mm3 MPV 9.6 (7.4-10.4) fl Immature Gran % (Auto) 0.3 (0-0.5) % Neut % (Auto) 77.4 H (45.5-73.1) % Lymph % (Auto) 12.1 L (18.3-44.2) % [place] % (Auto) 9.7 H (2.6-8.5) % Eos % (Auto) 0.2 (0-4.4) % Baso % (Auto) 0.3 (0.2-1.2) % Lymph # (Auto) 1.40 (0.9-3.2) K/mm3 [place] # (Auto) 1.1 H (0.1-0.6) K/mm3 Eos # (Auto) 0.0 (0-0.3) K/mm3 Baso # (Auto) 0.0 (0.0-0.1) K/mm3 Abs Immat Gran (auto) 0.04 H (0.00-0.031) K/mm3 Absolute Neuts (auto) 9.0 H (1.3-6.7) K/mm3 Absolute Nucleated RBC 0.000 (0.0-0.012) K/mm3 Nucleated RBC % 0.0 (0.0-0.2) % PT 15.1 H (11.1-14.7) Seconds INR 1.1 APTT 28.1 (22.3-36.8) Seconds Sodium 134 L (137-145) mmol/L Potassium 4.0 (3.4-5.0) mmol/L Chloride 102 (98-107) mmol/L Carbon Dioxide 27 (22-30) mmol/L Anion Gap 5 (4-12) mmol/L BUN 13 (7-17) mg/dL Creatinine 0.68 L (0.7-1.0) mg/dL Estim Creat Clear Calc 78 ml/min Estimated GFR > 60 (59 - ) Glucose 98 (65-110) mg/dL Calcium 8.8 (8.4-10.2) mg/dL Total Bilirubin 1.6 H (0.2-1.3) mg/dL AST 25 (14-36) U/L ALT 28 (6-35) U/L Alkaline Phosphatase 74 (38-126) U/L Troponin I < 0.012 (0.000-0.034) ng/mL Total Protein 7.0 (6.3-8.2) g/dL Albumin 4.2 (3.5-5.1) g/dL Lipase 57 (23-300) U/L Urine Color Pending Urine Appearance Pending Urine pH Pending Ur Specific [place] Pending Urine Protein Pending Urine Glucose (UA) Pending Urine Ketones Pending Ur Blood (Man) Pending Urine Nitrate Pending Urine Bilirubin Pending Urine Urobilinogen Pending Leukocyte Esterase Rfl Pending <Hans Guzman MD - Last Filed: 11/01/24 13:49> Imaging Data Radiologist's impression: ITS Impressions Abdomen/Pelvis CT 11/01/24 13:24 Impression: Acute sigmoid diverticulitis, versus possibly other colitis, as detailed above. No abscess or free air. No bowel obstruction. Stable dominant 5.3 x 3.7 cm central hypodense hepatic mass with smaller, similar-appearing lesion in the inferior right hepatic lobe. These lesions remain indeterminate by imaging, though stability is a reassuring sign. Additional hepatic cysts, also unchanged. <Kendra Jarvis APRN - Last Filed: 11/01/24 11:38> ITS Impressions Abdomen/Pelvis CT 11/01/24 13:24 Impression: Acute sigmoid diverticulitis, versus possibly other colitis, as detailed above. No abscess or free air. No bowel obstruction. Stable dominant 5.3 x 3.7 cm central hypodense hepatic mass with smaller, similar-appearing lesion in the inferior right hepatic lobe. These lesions remain indeterminate by imaging, though stability is a reassuring sign. Additional hepatic cysts, also unchanged. <Hans Guzman MD - Last Filed: 11/01/24 13:49> Discharge Plan Discharge Clinical Impression: Diverticulitis, Liver mass <Kendra Jarvis APRN - Last Filed: 11/01/24 11:38> Patient Disposition: Home, Self-Care <Kendra Sunitha Jarvis APRN - Last Filed: 11/01/24 11:38> Condition: Stable <Kendra Sunitha Jarvis APRN - Last Filed: 11/01/24 11:38> Instructions: Antibiotic Form, Diverticulitis (DC) <Kendra Jarvis APRN - Last Filed: 11/01/24 11:38> Additional Instructions: You were seen emergency department for abdominal pain. You have diverticulitis. Please complete the antibiotics as instructed. Use Motrin Tylenol for pain control. Please eat a clear liquid diet and advance as tolerated. Follow-up with your primary care physician for further management. You were found have an incidental liver mass on imaging. Please follow up with your PCP for further evaluation and treatment. <Kendra Jarvis APRN - Last Filed: 11/01/24 11:38> Patient Language: Martiniquais <Kendra Sunitha Jarvis APRN - Last Filed: 11/01/24 11:38> Prescriptions: New sulfamethoxazole-trimethoprim [Bactrim DS] 800-160 mg tablet 1 tablet PO Q12H Qty: 14 0RF metronidazole 500 mg tablet 500 mg PO Q8H 7 Days Qty: 21 0RF ibuprofen 800 mg tablet 800 mg PO TID PRN (Reason: pain) 7 Days Qty: 21 0RF acetaminophen 500 mg tablet 1,000 mg PO TID PRN (Reason: [place]) 7 Days Qty: 42 0RF No Action doxycycline monohydrate 100 mg tablet 100 mg PO BID Qty: 14 0RF albuterol sulfate 90 mcg/actuation HFA aerosol inhaler 2 puff inhalation QID PRN (Reason: shortness of breath or wheezing) Qty: 6.7 0RF loratadine [Allergy Relief (loratadine)] 10 mg tablet 10 mg PO DAILY Patient Comments: pulmonology-[facility] cholecalciferol (vitamin D3) 1,250 mcg (50,000 unit) tablet 1,250 mcg PO WEEKLY <Kendra Jarvis APRN - Last Filed: 11/01/24 11:38> Follow-up/Referrals: Bryan Pollock MD [Primary Care Provider] - <Kendra Jarvis, FILM SOUND ENGINEER - Last Filed: 11/01/24 11:38>
--- OUTSIDE RECORDS SUMMARY | 2024-11-01 11:39 | XMS_ITS | Encounter Summary ---
Author Organization [facility] Address [address] [place] [address] Phone Care Team Providers Care Dry Cleaner Hand Name Role Phone Bryan Pollock MD Primary Care Provider + [phone] Lizandro Colón Unavailable Unavailable Encounter Details Date Type Department Care Team (Latest Contact Info) Description 08/15/2020 Orders Only [facility] Scanning, Provider Social History Tobacco Use Types Packs/Day Years Used Date Smoking Tobacco: Never Smokeless Tobacco: Never Alcohol Use Standard Drinks/Week Comments Yes 0 (1 standard drink = 0.6 oz pur e alcohol) Occasionally Comments No Sex and Gender Information Value Date Recorded Sex Assigned at Not on file Legal Sex Female 2:03 AM RESPIRATORY CARE INSTRUCTOR Gender Identity Female 01/31/2021 3:51 PM CDT Sexual Orientation Straight 01/31/2021 3: 51 PM CDT documented as of this encounter Plan of Treatment Not on file documented as of this encounter Procedures Procedure Name Priority Date/Time Associated Diagnosis Comments CARDIOLOGY DOCUMENT SCAN 08/15/2020 documented in this encounter Results * SCAN - CARDIOLOGY (08/15/2020) Anatomical Region Laterality Modality Other us Provider Scanning [facility] CARDIAC SERVICES PROCEDURES Final Result documented in this encounter Visit Diagnoses Not on filedocumented in this encounter Care Teams Dry Cleaner Hand Relationship Specialty Start Date End Date Bryan Pollock MD PCP - General 10/30/17 Lizandro Colón 06/11/18 documented as of this encounter
--- OUTSIDE RECORDS SUMMARY | 2024-11-01 11:39 | XMS_ITS | Referral Summary ---
Author Organization [facility] Address [address] [place] [address] Care Team Providers Care Flow Worker Name Role Phone Bryan Pollock MD Primary Care Provider + [phone] Lizandro Colón Unavailable Unavailable Encounters Date Type Department Care Team Description 08/19/2024 Telephone [facility] Pulmonary [address] [place] [address] [place] [address] Omar Mckenzie RN 08/10/2024 Immunization [facility] Occupational Health [address] [place] [address] Alesha Gomez from Last 3 Months Allergies Active Allergy Reactions Criticality Noted Date Comments Penicillins Other (See comments) Low 02/05/2021 Has an immunity. Does not work well for her. Medications * This document contains information received from the source organization and may not represent a complete record from that organization. levonorgestreL (MIRENA) IUD by intrauterine route. DIRECTED Active cholecalciferol (VITAMIN D-3) 5,000 unit capsule Take 1 capsule (5,000 Units total) by mouth daily Active halobetasol (ULTRAVATE) 0.05 % cream APPLY TO RIGHT ELBOW RASH TWICE DAILY DIRECTED Active rizatriptan (MAXALT) 5 mg tabletIndicatio ns:Migraine Take 1 tablet (5 mg total) by mouth once as needed for migraine May repeat in 2 hours if unresolved. Do not exceed 3 in 24 hours. 9 tablet 3 3 Active metoprolol tartrate (LOPRESSOR) 25 mg immediate release tablet Take 0.5 tablets (12.5 mg total) by mouth 2 (two) times a day 30 tablet 11 3 Active Additional Information Patient taking differently:12.5 mg oralAs needed, Reported on 03/25/2023 benzonatate (TESSALON) 200 mg capsule TAKE 1 CAPSULE BY MOUTH THREE TIMES DAILY FOR 10 DAYS NEEDED FOR COUGH 3 Active hyoscyamine (LEVSIN) 0.125 mg SL tabletIndicatio ns:Irritable Bowel Syndrome Take 1 tablet (0.125 mg total) by mouth every 6 (six) hours as needed for cramping 120 tablet 3 3 Active multivitamin with iron tablet Take 1 tablet by mouth daily Active Lactobacillus acidophilus (PROBIOTIC ORAL) Take by mouth Active UNABLE TO FIND Tumeric otc Act nancy loratadine (CLARITIN) 10 mg tablet Take 1 tablet (10 mg total) by mouth daily 30 tablet 11 4 07/16/20 25 Active mometasone-form oterol (DULERA 100) 100-5 mcg/actuation inhaler 1 puff twice daily and as needed. Rinse mouth with water after use. Do not swallow. 1 each 11 4 Active Active Problems Problem Noted Date Diagnosed Date Bilateral tinnitus 05/22/2023 Pelvic pain 04/24/2023 History of proctitis 04/24/2023 Assessment & Plan (04/24/2023 11:24 AM CDT): While there was some concern for proctitis in 2018, there was no chronicity and subsequent endoscopy has been normal. She has known internal hemorrhoids that likely are the cause of her intermittent bright red blood per rectum Pain, pelvic, female 04/24/2023 Assessment & Plan (04/24/2023 11:25 AM CDT): The patient reports a cramping bilateral pain for the last several weeks that seems most prominent with sitting and maybe slightly improved with passage of stool. Her KUB today showed scattered stool throughout her colon. We would recommend that she try cleaning out with MiraLax and then getting back to a fiber plus or minus MiraLax regimen to have a regular stool daily. No alarm signs for GI cancer and she would a reassuring colonoscopy last year. Given the bilateral nature, benign lab work, chronicity, positional quality, condition only diverticulitis unlikely. As she had some upper respiratory symptoms around the same time, a postinfectious IBS flare remains in the differential. As magnesium can have a number of GI side effects, we have asked her to stop this for now. In the short term we will offer her trial of Levsin for these cramps and she can also consider a heating pad or peppermint product. If she continues to have significant trouble, we would recommend that she follow-up with instrument repairer helper and consider a CT scan of the abdomen and pelvis. Asthma 04/14/2023 Chronic tension-type headache, not intractable 0 11/28/2022 Migraine without status migrainosus, not intract able 11/28/2022 Eczematous dermatitis of right upper eyelid 04/05 Assessment & Plan (04/19/2022 8:41 AM CDT): Vs contact dermatitis; currently treating with vaseline that's helps with itching but has not resolved -recommend avoid scented fabric softener/detergents -pt denies any new products with recent use -rx Lotemax lindsey BID to right upper eyelid (RUL) X 10 days -if returns, will need to evaluate further for possibly irritant Presbyopia 03/20/2020 Assessment & Plan (05/09/2021 2:42 PM CDT): Patient complaints of eye strain following hours of work on the computer Recommend 2.50 or 2.75 reading strengths Refer optom for trifocal for computer use 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 No significant hyperopia. Recommend observation without intervention. Low-risk for angle closure. Headaches without Vision changes likely related to presbyopic changes and eye strain and/or surface related issues. Counseling given. F/U 1 yr with repeat gonioscopy-Dr. José Back to me prn Assessment & Plan (05/04/2020 6:45 AM CDT): Angles not occludable with IOP mid-teens, healthy ON. No significant hyperopia. Recommend observation without intervention. Low-risk for angle closure. F/U 1 yr with repeat gonioscopy- discussed findings and plan with pt Keratitis sicca, both eyes 03/20/2020 Assessment & Plan (04/19/2022 8:39 AM CDT): Mild; cont art tears PRN for now Assessment & Plan (05/09/2021 2:40 PM CDT): - Refresh or Systane artificial tears 4-6x per day in both eyes - Warm compresses twice daily: place a warm wet clean cloth over the eyes for 15 minutes in the morning and evening - nighttime lubricating gel or ointment (this will blur the vision, but can provide symptomatic relief) Ulcerative proctitis with complication 9 Overview (12/04/2018): Added automatically from request for surgery [id number] Hematochezia 03/13/2018 Immunizations Name Administration Dates Next Due Influenza, Trivalent, Cell C ulture-based MDCK, Preservative Free, Antibiotic Free, Intramuscular 08/10/2024 Social History Tobacco Use Types Packs/Day Years Used Date Smoking Tobacco: Never Smokeless Tobacco: Never Tobacco Cessation:Counseling Given: Not Answered Alcohol Use Standard Drinks/Week Comments Yes 0 (1 standard drink = 0.6 oz pur e alcohol) Occasionally AUDIT-C Answer Date Recorded Q1: How often do you have a drink containing alc ohol? 2-4 times a month 11/13/2021 Q2: How many drinks containi ng alcohol do you have on a typical day when you are drinking? 3 or 4 11/13/2021 Q3: How often do you have si x or more drinks on one occasion? 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 Not on file Not on file Not on file Last Filed Vital Signs Vital Sign Reading Time Taken Comments Blood Pressure 101/72 07/16/2024 8:43 AM CDT Pulse 84 07/16/2024 8:43 AM CDT Temperature 36.7 ??C (98 ??F) 07/16/2024 8:43 AM CDT Respiratory Rate 18 07/16/2024 8:43 AM CDT Oxygen Saturation 95% 07/16/2024 8:43 AM CDT Inhaled Oxygen Concentration - - Weight 72.9 kg (160 lb 12.8 oz) 07/16/2024 8:43 AM CDT Height 158.8 cm (5' 2.5 ) 07/16/2024 8:43 AM CDT Body Mass Index 28.94 07/16/2024 8:43 AM CDT Plan of Treatment Not on file Medical Devices Implanted Type Area Problem Manager Device Identifier Shelf Expiration Date Model / Serial / Lot Mirena Iud Vagina Procedures Procedure Name Priority Date/Time Associated Diagnosis Comments COLONOSCOPY 11/13/2021 1:25 PM HIDE STRETCHER HAND from Last 3 Months or Most Recently Relevant to Health Maintenance Results * COLONOSCOPY (11/13/2021 1:25 PM HIDE STRETCHER HAND) Anatomical Region Laterality Modality Other Narrative Procedure Note Dat Meeks MD PhD - 11/13/2021 1:25 PM CST ENDOSCOPY LAB Patient Name: Disha Koehler Procedure Date: 11/13/2021 1:25 PM Date of : 1970 Admit Type: Outpatient Age: 50 Gender: Female Attending MD: Dat Meeks MD,PHD Room: [facility] ENDOSCOPY ROOM 02 Note Status: Finalized Procedure: Colonoscopy Indications: Screening for colorectal malignant neoplasm, Last colonoscopy: November 2017 Providers: Dat Meeks MD, PHD Referring MD: Bryan Pollock M.D. Medicines: Monitored Anesthesia Care Complications: No immediate complications. Estimated Blood Loss: Estimated blood loss: none. Procedure: Pre-Anesthesia Assessment: - Immediately prior to administration ofmedications, the patient was re-assessed for adequacy to receive sedatives. The benefits, risks and alternatives of theprocedure and sedation were discussed and informed consentwas obtained. All questions were answered. Please referto the signed informed consent document in the medical record. The scope was passed under direct vision.The [id number] was introduced through the anusand advanced to the cecum, identified by appendiceal orifice and ileocecal valve. The colonoscopy was performed without difficulty. The patient tolerated the procedure well. The quality of the bowel preparation was evaluated using the BBPS (BostonBowel Preparation Scale) with scores of: Right Colon = 3, Transverse Colon = 3 and Left Colon = 3 (entiremucosa seen well with no residual staining, smallfragments of stool or opaque liquid). The total BBPS score equals 9. The quality of the bowel preparation was excellent. The bowel preparation used was SUPREPvia split dose instruction. Bowel prep was administered using a split dose. Findings: The perianal and digital rectal examinations were normal. A few small and large-mouthed diverticula were found in the sigmoid colon. Internal hemorrhoids were found during retroflexion. The exam was otherwise without abnormality. Impression: - Diverticulosis in the sigmoid colon. - Internal hemorrhoids. - The examination was otherwise normal. Recommendation: - High fiber diet. - Repeat colonoscopy in 10 years for screening purposes. - Contact Information: During normal business hours - Please call theNurse Coordinator: [phone]. After hours, evening, nights, weekends and holidays- Please call the hospital dielectric embossing machine operator at and ask for the GI fellow material liaison. Attending Participation: I personally performed the entire procedure. Electronically signed by Dat Meeks MD. Dat Meeks MD, PHD 11/13/2021 1:52:18 PM Number of Addenda: 0 Note Initiated On: 11/13/2021 1:25 PM Dat Meeks MD PhD ENDOSCOPY PROCEDURES Cande l Result from Last 3 Months or Most Recently Relevant to Health Maintenance [place] [address] [facility] [facility] [employer] EMPLOYEES [employer] CHO[employer] PLUS [employer] Advance Directives For more information, please contact: [phone] * Full Code (Latest Code Status on File) Date Activated Date Inactivated Comments 11/13/2021 11:40 AM 11/13/2021 6:40 PM * Full Code Date Activated Date Inactivated Comments 01/12/2019 9:25 AM 01/12/2019 5:31 PM Care Teams Flow Worker Relationship Specialty Start Date End Date Bryan Pollock MD PCP - General 10/30/17 Lizandro Colón 06/11/18
--- OUTSIDE RECORDS SUMMARY | 2024-11-01 11:39 | XMS_ITS | Clinical Summary ---
Author Organization [facility] Address [address] [place] [address] Care Team Providers Care Basketballs And Footballs Reverser Name Role Phone Bryan Pollock MD Primary Care Provider + [phone] Lizandro Colón Unavailable Unavailable Allergies Active Allergy Reactions Criticality Noted Date [...] TO RIGHT ELBOW RASH TWICE DAILY DIRECTED 1 Active rizatriptan (MAXALT) 5 mg tabletIndicatio ns:Migraine [...] we would recommend that she follow-up with operator coating furnace and consider a CT scan of the [...] (12/04/2018): Added automatically from request for surgery [id number] Hematochezia 03/13/2018 Encounters Date Type Department Care Team Description 08/19/2024 Telephone [facility] Pulmonary [address] [facility] [address]th [place] [address] [place] [id number] Omar Mckenzie RN 08/10/2024 Immunization [facility] Occupational Health [address] [facility] 5th [address] [place] [address] Alesha Gomez from Last 3 Months Immunizations Name Administration Dates Next Due Influenza, Trivalent, Cell C ulture-based MDCK, Preservative Free, Antibiotic Free, Intramuscular 08/10/2024 Surgical History Surgery Date Site/Laterality Comments LYMPH NODE BIOPSY 10/06/2008 - 10/05/2009 KNEE ARTHROSCOPY W/ ACL RECONSTRUCTION 10/06/2013 - 10/05/2014 Left MOHS SURGERY 10/06/2014 - 10/05/2015 Right melanotic proliferation ear Medical History Medical History Date Comments Joint pain Dysphagia Ulcerative colitis (HCC) Asthma Chronic bronchitis (HCC) Migraines COVID-19 virus detected 07/2020 Psoriasis Family History Medical History Relation Name Comments Cancer Father Heart disease Father Family history of cardiac disorder - (Added by TW Conv) Stroke Father Alzheimer's disease Maternal Grandfather Heart disease Maternal Grandmother Solid Tumor Maternal Grandmother colon surgery Maternal Grandmother Heart disease Mother Family history of cardiac disorder - (Added by TW Conv) Hypertension Other 1 Reported Previo us High Blood Pressure - Grandparents (Added by TW Conv) Thyroid disease Other 2 Thyroid Diso rder - Grandmother (Added by TW Conv) Diabetes Other 3 Diabetes Mellit us - Grandfather (Added by TW Conv) Heart disease Other 4 Heart Disease - Grandfather (Added by TW Conv) Heart disease Paternal Grandfather Heart disease Paternal Grandmother Relation Name Status Comments Father Alive Maternal Grandfather Maternal Grandmother Mother Alive Other 1 Other 2 Other 3 Other 4 Paternal Grandfather Paternal Grandmother Social History Tobacco Use Types Packs/Day Years [...] on file Legal Sex Female 2:03 AM EMERGENCY COMMUNICATIONS OFFICER Gender Identity Female 01/31/2021 3:51 PM CDT Sexual Orientation Straight 01/31/2021 3: 51 PM CDT 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 Not on file Not on file Not on file Obstetrics History Last Filed Vital Signs Vital Sign Reading [...] 07/16/2024 8:43 AM CDT Plan of Treatment Health Maintenance Due Date Last Done Comments Breast Cancer Screening-Mammogram 1970 Cervical Cancer Screening 1970 Depression Screening 1970 Hepatitis C Screening 1970 Pneumococcal vaccine <65 (1 of 2 - PCV) 1976 DTaP/Tdap/Td Vaccine (1 - Tdap) 1981 Hepatitis B Screening 1988 Regular Well Visit/Exam 18-64 1988 Zoster Vaccine (1 of 2) 2020 Covid-19 Vaccine ( season) 2024 09/26/2021, 11/14/2020, 10/26/2020 Colon Cancer Screening-Colonoscopy 11/13/20312021, 12/02/2017 Influenza Vaccine Completed 08/10/2024, 07/21/2023 Medical Devices Implanted Type Area Molding Machine Operator Helper Device Identifier Shelf Expiration Date Model / Serial / Lot Mirena Iud Vagina Procedures Procedure Name Priority Date/Time Associated Diagnosis Comments COLONOSCOPY 11/13/2021 1:25 PM EMERGENCY COMMUNICATIONS OFFICER from Last 3 Months or Most Recently Relevant to Health Maintenance Results * COLONOSCOPY (11/13/2021 1:25 PM EMERGENCY COMMUNICATIONS OFFICER) Anatomical Region Laterality Modality Other Narrative Procedure Note Dat Meeks MD PhD - 11/13/2021 1:25 PM CST ENDOSCOPY LAB Patient Name: Disha Koehler Procedure Date: 11/13/2021 1:25 PM Date of : 1970 Admit Type: Outpatient Age: 50 Gender: Female Attending MD: Dat Meeks MD,PHD Room: [facility] ENDOSCOPY ROOM 02 Note Status: Finalized Procedure: [...] The scope was passed under direct vision.The [id number] was introduced through the anusand advanced to [...] business hours - Please call theNurse Coordinator: [phone]. After hours, evening, nights, weekends and holidays- Please call the hospital tray casting machine operator at and ask for the GI fellow special education assistant. Attending Participation: I personally performed the entire procedure. Electronically signed by Dat Meeks MD. Dat Meeks MD, PHD 11/13/2021 1:52:18 PM Number of Addenda: 0 Note Initiated On: 11/13/2021 1:25 PM Dat Meeks MD PhD ENDOSCOPY PROCEDURES Cande l Result from Last 3 Months or Most Recently Relevant to Health Maintenance Insurance [facility] EMPLOYEES [facility] [facility] CHOICE PLUS [employer] Advance Directives For more information, please contact: [phone] * Full Code (Latest Code Status on File) Date Activated Date Inactivated Comments 11/13/2021 11:40 AM 11/13/2021 6:40 PM * Full Code Date Activated Date Inactivated Comments 01/12/2019 9:25 AM 01/12/2019 5:31 PM Care Teams Basketballs And Footballs Reverser Relationship Specialty Start Date End Date Bryan Pollock MD PCP - General 10/30/17 Lizandro Colón 06/11/18
--- OUTSIDE RECORDS SUMMARY | 2024-11-01 11:40 | XMS_ITS | Encounter Summary ---
Author Organization [facility] Address [address] [place] [address] Care Team Providers Care Civil Drafter Name Role Phone Unavailable Primary Care Provider Unavailabl e Encounter Details Date Type Department Care Team (Late st Contact Info) Description 10/12/2021 Lab Requisition [facility] Care DermPath Lab [address] [place] [id number] Arnol Hicks MD [address] [place] [address] Social History Tobacco Use Types Packs/Day Years Used Date Smoking Tobacco: Never Assessed Sex and Gender Information Value Date Recorded Sex Assigned at Not on file Gender Identity Not on file Sexual Orientation Not on file documented as of this encounter Plan of Treatment Not on file documented as of this encounter Procedures Procedure Name Priority Date/Time Associated Diagnosis Comments DERMATOPATHOLOGY Routine 10/10/2021 12:0 0 AM SCUDDING INSPECTOR documented in this encounter Results * DERMATOPATHOLOGY (10/10/2021 12:00 AM SCUDDING INSPECTOR) Case Report Dermatopathology Report ? Case: [id number] ? Authorizing Provider: ??Arnol Hicks MD ?Collected: ? 10/10/2021 12:00 AM ? Ordering Location: ? [facility] ?Received: ?10/12/2021 12:31 PM ? Pathologist: ? Jael Vega, ? MD ? Specimen: ?Skin, right lateral abdomen ? 2 12:09 PM [facility] DERMATOPATHOLOGY [facility]ORAT[facility] Final Diagnosis Specimen A. SKIN, right lateral abdomen: LENTIGINOUS MELANOCYTIC NEVUS, JUNCTIONAL TYPE, IRRITATED (JUNCTIONAL MELANOCYTIC NEVUS WITH ARCHITECTURAL DISORDER) (D22.5) POST-INFLAMMATORY PIGMENT ALTERATION (L81.9) NOT PRESENT AT SAMPLED MARGIN 2 12:09 PM [facility]ERMATOP[facility] Clinical History R/O dysplasia nevus. Check margins. 2 12:09 PM [facility]ERMATOP[facility] Gross Description Specimen A: Received is one formalin filled container labeled with the patients name and designated right lateral abdomen. The specimen consists of a shave removal measuring [id number]. The margin is inked green. Jar 0. 2 12:09 PM [facility]ERMATOP[facility]Y [facility] Microscopic Description Specimen A. SKIN, right lateral abdomen: This is a junctional nevus. There is melanin pigment in the stratum corneum. There is architectural disorder characterized by a lentiginous proliferation of melanocytes between irregular nests of cells along the dermal-epidermal junction. There is underlying fibroplasia of the papillary dermis. (Junctional David's Nevus or Junctional Dysplastic Nevus) There is abundant melanin within melanophages around the superficial vascular plexus. This lesion is not present at the sampled margin of the specimen. 2 12:09 PM [facility] DERMAT[facility]ATH[facility]Y [facility] Disclaimer An external and internal positive and negative controls are appropriate for the histochemical, immunohistochemical and immunofluorescence stain(s) in this case (if any), except where stated explicitly. The performance characteristics of the stain(s) cited in this report were developed and its performance characteristic determined by the Dermatopathology Laboratory at [facility], directed by Dr. Suzette Martins. These tests need not be, and therefore are not, approved by the [place] Food and Drug Administration. The tests are used for clinical purposes. Billing Codes Specimen Charges Stain Charges 64707 1 2 12:09 PM [facility] DERMAT[facility] Embedded Images 2 12:09 PM [facility] DERMATOP[facility] Pathology/Cytolog y TISSUE SPECIMEN FROM SKIN / Unknown 10/10/2021 10/12/2021 12:31 PM SCUDDING INSPECTOR Arnol Hicks MD LAB - PATHOLOGY/CYTO LOGY ORDERABLES DERMATOPATHOLOGY LABORATORY [facility] - Department of Dermatology [address], [address] [phone] documented in this encounter Visit Diagnoses Not on filedocumented in this encounter
--- OUTSIDE RECORDS SUMMARY | 2024-11-01 11:40 | XMS_ITS | Clinical Summary ---
Author Organization [facility] [address] [place] [id number] [place] [phone] Care Team Providers Care Lifestyle Consultant Name Role Phone Bryan Pollock MD Primary Care Provider [phone] Social History Tobacco Use Types Packs/Day Years Used Date Smoking Tobacco: Never Assessed Comments Unknown Sex and Gender Information Value Date Recorded Sex Assigned at Not on file Legal Sex Female 12:10 PM CDT Gender Identity Not on file Sexual Orientation Not on file Plan of Treatment Health Maintenance Due Date Last Done Comments DTAP/TDAP/TD VACCINES (1 - Tdap) 1989 HEPATITIS B VACCINES (1 of 3 - 19+ 3-dose series) 1989 BREAST CANCER SCREENING 2010 FIT-DNA Q 3 years 2015 FIT/FOBT Q 1 year 2015 ZOSTER VACCINE (1 of 2) 2020 Flex Sig/CT Colonography Q 5 years 01/13/2024 01/12/2019 INFLUENZA VACCINE (#1) 2024 CERVICAL CANCER SCREENING 08/03/2024 08/03/2021 COLORECTAL SCREENING 11/13/2031 11/13/2021, 01/12/2019 Colorectal Cancer Screening 11/13/2031 PNEUMOCOCCAL VACCINE 0-64 YEARS Aged Out No longer eligible b ased on patient's age to complete this topic Care Teams Lifestyle Consultant Relationship Specialty Start Date End Date Bryan Pollock MD [address] [place] [address] PCP - General Family Practice 12/23/22
--- OUTSIDE RECORDS SUMMARY | 2024-11-01 11:40 | XMS_ITS | Encounter Summary ---
Author Organization [facility] Health Address [address] [facility] [place] [address] Care Team Providers Care Hand Candy Molder Name Role Phone Unavailable Primary Care Provider Unavailabl e Encounter Details Date Type Department Care Team (Late st Contact Info) Description 08/13/2023 Lab Requisition [facility] - DermPath Lab [address] [place] [address] Arnol Hicks MD [address] [place] [address] Social History Tobacco Use Types Packs/Day Years Used Date Smoking Tobacco: Never Assessed Sex and Gender Information Value Date Recorded Sex Assigned at Not on file Gender Identity Not on file Sexual Orientation Not on file documented as of this encounter Plan of Treatment Not on file documented as of this encounter Procedures Procedure Name Priority Date/Time Associated Diagnosis Comments DERMATOPATHOLOGY Routine 08/12/2023 3:33 AM CONSUMER LOAN MANAGER documented in this encounter Results * DERMATOPATHOLOGY (08/12/2023 3:33 AM CONSUMER LOAN MANAGER) Case Report Dermatopathology Report ? Case: [id number] ? Authorizing Provider: ??Arnol Hicks MD ?Collected: ? 08/12/2023 03:33 AM ? Ordering Location: ? [facility] ? Received: ?08/13/2023 03:18 PM ? Pathologist: ? Josie Wallace MD ? Specimens: ?? A) - Skin, right upper chest below clavicle ? B) - Skin, left med breast sup ? 3 1:47 PM [facility] DERMATOPATHOLOGY LABORATORY Final Diagnosis Specimen A. SKIN, right upper chest below clavicle: LICHEN PLANUS-LIKE KERATOSIS (BENIGN LICHENOID KERATOSIS) , END STAGE (L82.1) Specimen B. SKIN, left med breast sup: LICHEN PLANUS-LIKE KERATOSIS (BENIGN LICHENOID KERATOSIS) (L82.1) 3 1:47 PM [facility] DERMATOPATHOLOGY LABORATORY Clinical History R/O SCC vs BCC vs LPLK 3 1:47 PM [facility] DERMATOPATHOLOGY LABORATORY Gross Description Specimen A: Received is one formalin filled container labeled with the patient's name and designated right upper chest below clavicle. The specimen consists of a shave biopsy measuring 12x8x1 mm. Jar 0. Specimen B: Received is one formalin filled container labeled with the patient's name and designated left med breast sup. The specimen consists of a shave biopsy measuring 9x6x1 mm. Jar 0. 3 1:47 PM [facility] DERMATOPATHOLOGY LABORATORY Microscopic Description Specimen A. SKIN, right upper chest below clavicle: The epidermis is mildly acanthotic. There is a patchy lichenoid infiltrate with vacuolar changes of basilar keratinocytes and scattered necrotic keratinocytes. Specimen B. SKIN, left med breast sup: The epidermis is mildly acanthotic. There is a lichenoid infiltrate with vacuolar changes of basilar keratinocytes and scattered necrotic keratinocytes. 3 1:47 PM CONSUMER LOAN MANAGER DERMATOPATHOLOGY LABORATORY Disclaimer An external and internal positive and negative controls are appropriate for the histochemical, immunohistochemical and immunofluorescence stain(s) in this case (if any), except where stated explicitly. The performance characteristics of the stain(s) cited in this report were developed and its performance characteristic determined by the Dermatopathology Laboratory at [facility], directed by Dr. Suzette Martins. These tests need not be, and therefore are not, approved by the [place] Food and Drug Administration. The tests are used for clinical purposes. Billing Codes Specimen Charges Stain Charges 81556 82623 1 1 3 1:47 PM CONSUMER LOAN MANAGER DERMATOPATHOLOGY LABORATORY Embedded Images 3 1:47 PM CONSUMER LOAN MANAGER DERMATOPATHOLOGY LABORATORY Pathology/Cytology TISSUE SPECIMEN FROM SKIN / Unknown 08/12/2023 3:33 AM CONSUMER LOAN MANAGER 08/13/2023 3:18 PM CONSUMER LOAN MANAGER Miscellaneous samples (specimen) TISSUE SPECIMEN FROM SKIN / Unknown 08/12/2023 3:33 AM CONSUMER LOAN MANAGER 08/13/2023 3:18 PM CONSUMER LOAN MANAGER Arnol Hicks MD LAB - PATHOLOGY/CYTO LOGY ORDERABLES DERMATOPATHOLOGY LABORATORY [facility] - Department of Dermatology [address], [address] [phone] documented in this encounter Visit Diagnoses Not on filedocumented in this encounter
--- OUTSIDE RECORDS SUMMARY | 2024-11-01 11:40 | XMS_ITS | Encounter Summary ---
Author Organization [facility] Health Address [address] [place] [address] Care Team Providers Care Crawler Dragline Operator Name Role Phone Unavailable Primary Care Provider Unavailabl e Encounter Details Date Type Department Care Team (Late st Contact Info) Description 02/07/2022 Lab Requisition [facility] Care DermPath Lab [address] [facility] [place] [phone] Arnol Hicks MD [address] [place] [address] Social History Tobacco Use Types Packs/Day Years Used Date Smoking Tobacco: Never Assessed Sex and Gender Information Value Date Recorded Sex Assigned at Not on file Gender Identity Not on file Sexual Orientation Not on file documented as of this encounter Plan of Treatment Not on file documented as of this encounter Procedures Procedure Name Priority Date/Time Associated Diagnosis Comments DERMATOPATHOLOGY Routine 02/06/2022 3:33 AM CDT documented in this encounter Results * DERMATOPATHOLOGY (02/06/2022 3:33 AM CDT) Case Report Dermatopathology Report ? Case: [id number] ? Authorizing Provider: ??Arnol Hicks MD ?Collected: ? 02/06/2022 03:33 AM ? Ordering Location: ? [facility] ?Received: ?02/07/2022 01:48 PM ? Pathologist: ? Ren Martins MD ? Specimen: ?Skin, right upper chest ? 2 6:53 PM CDT DERMATOPATHOLOGY LABORATORY Final Diagnosis Specimen A. SKIN, right upper chest: LICHEN PLANUS-LIKE KERATOSIS (BENIGN LICHENOID KERATOSIS) (L82.1) 2 6:53 PM T DERMATOPATHOLOGY LABORATORY Clinical History R/O LPLK vs BCC vs SCC. 2 6:53 PM CDT DERMATOPATHOLOGY LABORATORY Gross Description Specimen A: Received is one formalin filled container labeled with the patient's name and designated right upper chest. The specimen consists of a shave biopsy measuring 3t9a8jn. Jar 0. 2 6:53 PM CDT DERMATOPATHOLOGY LABORATORY Microscopic Description Specimen A. SKIN, right upper chest: The epidermis is mildly acanthotic. There is a lichenoid infiltrate with vacuolar changes of basilar keratinocytes and scattered necrotic keratinocytes. 2 6:53 PM CDT DERMATOPATHOLOGY LABORATORY Disclaimer An external and internal positive and negative controls are appropriate for the histochemical, immunohistochemical and immunofluorescence stain(s) in this case (if any), except where stated explicitly. The performance characteristics of the stain(s) cited in this report were developed and its performance characteristic determined by the Dermatopathology Laboratory at [facility], directed by Dr. Suzette Martins. These tests need not be, and therefore are not, approved by the [place] Food and Drug Administration. The tests are used for clinical purposes. Billing Codes Specimen Charges Stain Charges 27766 1 2 6:53 PM CDT DERMATOPATHOLOGY LABORATORY Embedded Images 2 6:53 PM CDT DERMATOPATHOLOGY LABORATORY Pathology/Cytolo gy TISSUE SPECIMEN FROM SKIN / Unknown 02/06/2022 3:33 AM CDT 02/07/2022 1:48 PM CDT Arnol Hicks MD LAB - PATHOLOGY/CYTO LOGY ORDERABLES DERMATOPATHOLOGY LABORATORY [facility] - Department of Dermatology [facility] [address] [place] [address], [address] [phone] documented in this encounter Visit Diagnoses Not on filedocumented in this encounter
--- OUTSIDE RECORDS SUMMARY | 2024-11-01 11:40 | XMS_ITS | Encounter Summary ---
Author Organization [facility] Address [address] [facility] [place] [address] Care Team Providers Care Ground Surveillance Systems Operator Name Role Phone Unavailable Primary Care Provider Unavailabl e Encounter Details Date Type Department Care Team (Late st Contact Info) Description 01/22/2023 Lab Requisition [facility] [address] [facility] [place] [phone] Arnol Hicks MD [address] [place] [address] Social History Tobacco Use Types Packs/Day Years Used Date Smoking Tobacco: Never Assessed Sex and Gender Information Value Date Recorded Sex Assigned at Not on file Gender Identity Not on file Sexual Orientation Not on file documented as of this encounter Plan of Treatment Not on file documented as of this encounter Procedures Procedure Name Priority Date/Time Associated Diagnosis Comments DERMATOPATHOLOGY Routine 01/21/2023 12:0 0 AM CDT documented in this encounter Results * DERMATOPATHOLOGY (01/21/2023 12:00 AM CDT) Case Report Dermatopathology Report ? Case: [id number] ? Authorizing Provider: ??Arnol Hicks MD ?Collected: ? 01/21/2023 12:00 AM ? Ordering Location: ? [facility] ?Received: ?01/22/2023 02:04 PM ? Pathologist: ? Ren Martins MD ? Specimen: ?Skin, posterior lateral right shoulder ? 3 6:33 PM CDT DERMATOPATHOLOGY LABORATORY Final Diagnosis Specimen A. SKIN, posterior lateral right shoulder: SEBORRHEIC KERATOSIS, IRRITATED AND INFLAMED (L82.0) 3 6:33 PM CDT DERMATOPATHOLOGY LABORATORY Clinical History R/O SCC, ISK, BCC 3 6:33 PM CDT DERMATOPATHOLOGY LABORATORY Gross Description Specimen A: Received is one formalin filled container labeled with the patient's name and designated posterior lateral right shoulder. The specimen consists of a shave biopsy measuring 82f31n4 mm. Jar 0. 3 6:33 PM CDT DERMATOPATHOLOGY LABORATORY Microscopic Description Specimen A. SKIN, posterior lateral right shoulder: Sections show acanthosis, papillomatosis, hyperkeratosis, and squamous eddies. There is a lymphohistiocytic infiltrate within the papillary dermis. 3 6:33 PM CDT DERMATOPATHOLOGY LABORATORY Disclaimer An external and internal positive and negative controls are appropriate for the histochemical, immunohistochemical and immunofluorescence stain(s) in this case (if any), except where stated explicitly. The performance characteristics of the stain(s) cited in this report were developed and its performance characteristic determined by the Dermatopathology Laboratory at [facility], directed by Dr. Suzette Martins. These tests need not be, and therefore are not, approved by the [place] Food and Drug Administration. The tests are used for clinical purposes. Billing Codes Specimen Charges Stain Charges 52797 1 3 6:33 PM CDT DERMATOPATHOLOGY LABORATORY Embedded Images 3 6:33 PM CDT DERMATOPATHOLOGY LABORATORY Pathology/Cytolog y TISSUE SPECIMEN FROM SKIN / Unknown 01/21/2023 01/22/2023 2:04 PM CDT Arnol Hicks MD LAB - PATHOLOGY/CYTO LOGY ORDERABLES DERMATOPATHOLOGY LABORATORY [facility] - Department of Dermatology [facility] Medicine [address] [place] [address], [address] [phone] documented in this encounter Visit Diagnoses Not on filedocumented in this encounter
--- OUTSIDE RECORDS SUMMARY | 2024-11-01 11:40 | XMS_ITS | Patient Health Summary ---
Author Organization [facility] Address [address] [place] [address] Care Team Providers Care Chamber Of Commerce Division Manager Name Role Phone Unavailable Primary Care Provider Unavailabl e Note from [facility],non-owned Affiliates and Associated Physician Practices is amultiple site organization consisting of ambulatory clinics and hospital sitesin [place], [place], [place] and [place]. This disclosure is being madepursuant to the Care Everywhere program and may not contain all information available regarding this patient. Last updated 18.[facility] Social History Tobacco Use Types Packs/Day Years Used Date Smoking Tobacco: Never Assessed Sex and Gender Information Value Date Recorded Sex Assigned at Not on file Gender Identity Not on file Sexual Orientation Not on file Procedures * DERMATOPATHOLOGY(Performed 08/12/2023) * DERMATOPATHOLOGY(Performed 01/21/2023) * DERMATOPATHOLOGY(Performed 02/06/2022) * DERMATOPATHOLOGY(Performed 10/10/2021) * DERMATOPATHOLOGY(Performed 06/22/2019) * DERMATOPATHOLOGY(Performed 06/21/2015) Results * DERMATOPATHOLOGY (08/12/2023 3:33 AM WELLHEAD PUMPER) Only the most recent of6 resultswithin the time period is included. Case Report Dermatopathology Report ? Case: [id number] ? Authorizing Provider: ??Arnol Hicks MD ?Collected: ? 08/12/2023 03:33 AM ? Ordering Location: ? [facility] DermPath Lab ? Received: ?08/13/2023 03:18 PM ? Pathologist: ? Josie Wallace MD ? Specimens: ?? A) - Skin, right upper chest below clavicle ? B) - Skin, left med breast sup ? 3 1:47 PM [facility] DERMATOPATHOLOGY LABORATORY Final Diagnosis Specimen A. SKIN, right upper chest below clavicle: LICHEN PLANUS-LIKE KERATOSIS (BENIGN LICHENOID KERATOSIS) , END STAGE (L82.1) Specimen B. SKIN, left med breast sup: LICHEN PLANUS-LIKE KERATOSIS (BENIGN LICHENOID KERATOSIS) (L82.1) 3 1:47 PM [facility] DERMATOPATHOLOGY LABORATORY Clinical History R/O SCC vs BCC vs LPLK 3 1:47 PM [facility] DERMATOPATHOLOGY LABORATORY Gross Description Specimen [...] 9x6x1 mm. Jar 0. 3 1:47 PM [facility] DERMATOPATHOLOGY LABORATORY Microscopic Description Specimen [...] and scattered necrotic keratinocytes. 3 1:47 PM WELLHEAD PUMPER DERMATOPATHOLOGY LABORATORY Disclaimer An external and internal positive and negative controls are appropriate for the histochemical, immunohistochemical and immunofluorescence stain(s) in this case (if any), except where stated explicitly. The performance characteristics of the stain(s) cited in this report were developed and its performance characteristic determined by the Dermatopathology Laboratory at [facility], directed by Dr. Suzette Martins. These tests need not be, and therefore are not, approved by the [place] Food and Drug Administration. The tests are used for clinical purposes. Billing Codes Specimen Charges Stain Charges 19846 12792 1 1 3 1:47 PM WELLHEAD PUMPER DERMATOPATHOLOGY LABORATORY Embedded Images 3 1:47 PM WELLHEAD PUMPER DERMATOPATHOLOGY LABORATORY Pathology/Cytology TISSUE SPECIMEN FROM SKIN / Unknown 08/12/2023 3:33 AM WELLHEAD PUMPER 08/13/2023 3:18 PM WELLHEAD PUMPER Miscellaneous samples (specimen) TISSUE SPECIMEN FROM SKIN / Unknown 08/12/2023 3:33 AM WELLHEAD PUMPER 08/13/2023 3:18 PM WELLHEAD PUMPER Arnol Hicks MD LAB - PATHOLOGY/CYTO LOGY ORDERABLES DERMATOPATHOLOGY LABORATORY [facility] - Department of Dermatology [address], [address] [phone]
--- OUTSIDE RECORDS SUMMARY | 2024-11-01 11:40 | XMS_ITS | Encounter Summary ---
Author Organization [facility] Health Address [address] [facility] [place] [address] Care Team Providers Care Scrap Preparation Supervisor Name Role Phone Unavailable Primary Care Provider Unavailabl e Encounter Details Date Type Department Care Team (Late st Contact Info) Description 06/23/2019 Lab Requisition [facility] Care DermPath Lab [address] [facility] [place] [phone] Arnol Hicks MD [address] [facility] [place] [address] Social History Tobacco Use Types Packs/Day Years Used Date Smoking Tobacco: Never Assessed Sex and Gender Information Value Date Recorded Sex Assigned at Not on file Gender Identity Not on file Sexual Orientation Not on file documented as of this encounter Plan of Treatment Not on file documented as of this encounter Procedures Procedure Name Priority Date/Time Associated Diagnosis Comments DERMATOPATHOLOGY Routine 06/22/2019 12:0 0 AM CDT documented in this encounter Results * DERMATOPATHOLOGY (06/22/2019 12:00 AM CDT) Case Report Dermatopathology Report ? Case: [id number] ? Authorizing Provider: ??Arnol Hicks MD ?Collected: ? 06/22/2019 12:00 AM ? Ordering Location: ? [facility] ?Received: ?06/23/2019 01:48 PM ? Pathologist: ? Ren Martins MD ? Specimen: ?Skin, right lateral mid thigh ? 4:57 PM CDT DERMATOPATHOLOGY LABORATORY Final Diagnosis Specimen A. SKIN, right lateral mid thigh: LENTIGINOUS MELANOCYTIC NEVUS, JUNCTIONAL TYPE, IRRITATED (JUNCTIONAL MELANOCYTIC NEVUS WITH ARCHITECTURAL DISORDER) (D22.71) 4:57 PM CDT DERMATOPATHOLOGY LABORATORY Clinical History R/O dys nevus 4:57 PM CDT DERMATOPATHOLOGY LABORATORY Gross Description Specimen A: Received is one formalin filled container labeled with the patient's name and designated right lateral mid thigh. The specimen consists of a shave biopsy measuring 7x6x1 mm. Jar 0. 4:57 PM CDT DERMATOPATHOLOGY LABORATORY Microscopic Description Specimen A. SKIN, right lateral mid thigh: This is a junctional nevus. There is melanin pigment in the stratum corneum. There is architectural disorder characterized by a lentiginous proliferation of melanocytes between irregular nests of cells along the dermal-epidermal junction. There is underlying fibroplasia of the papillary dermis. (Junctional David's Nevus or Junctional Dysplastic Nevus) 4:57 PM CDT DERMATOPATHOLOGY LABORATORY Disclaimer An external and internal positive and negative controls are appropriate for the histochemical, immunohistochemical and immunofluorescence stain(s) in this case (if any), except where stated explicitly. The performance characteristics of the stain(s) cited in this report were developed and its performance characteristic determined by the Dermatopathology Laboratory at [facility], directed by Dr. Suzette Martins. These tests need not be, and therefore are not, approved by the [place] Food and Drug Administration. The tests are used for clinical purposes. Billing Codes Specimen Charges Stain Charges 01872 1 9 4:57 PM CDT DERMATOPATHOLOGY LABORATORY Embedded Images 9 4:57 PM CDT DERMATOPATHOLOGY LABORATORY Pathology/Cytolog y TISSUE SPECIMEN FROM SKIN / Unknown 06/22/2019 06/23/2019 1:48 PM CDT Arnol Hicks MD LAB - PATHOLOGY/CYTO LOGY ORDERABLES DERMATOPATHOLOGY LABORATORY [facility] - Department of Dermatology [address] [place] [address] 5[address] Floor Lab [address] [phone] documented in this encounter Visit Diagnoses Not on filedocumented in this encounter
--- OUTSIDE RECORDS SUMMARY | 2024-11-01 11:40 | XMS_ITS | Referral Summary ---
Author Organization [facility] Address [address] [facility] [place] [address] Care Team Providers Care Applied Psychology Teacher Name Role Phone Unavailable Primary Care Provider Unavailabl e Source Comments [facility],non-owned Affiliates and Associated Physician Practices is amultiple site organization consisting of ambulatory clinics and hospital sitesin [place], [place], [place] and [place]. This disclosure is being madepursuant to the Care Everywhere program and may not contain all information available regarding this patient. Last updated 18.[facility] Social History Tobacco Use Types Packs/Day Years Used Date Smoking Tobacco: Never Assessed Sex and Gender Information Value Date Recorded Sex Assigned at Not on file Gender Identity Not on file Sexual Orientation Not on file Plan of Treatment Not on file Alyssa Koehler Personal/Famil y Self 1970 ([place]) [address] [place], [place] [address] Alyssa Koehler Personal/Famil y Self 1970 ([place]) [address] [address]
--- OUTSIDE RECORDS SUMMARY | 2024-11-01 11:40 | XMS_ITS | Clinical Summary ---
Author Organization [facility] Address [address] [place] [address] Care Team Providers Care Filter Press Supervisor Name Role Phone Unavailable Primary Care Provider Unavailabl e Source Comments [facility],non-owned Affiliates and Associated Physician Practices is amultiple site organization consisting of ambulatory clinics and hospital sitesin [place], [place], [place] and [place]. This disclosure is being madepursuant to the Care Everywhere program and may not contain all information available regarding this patient. Last updated 18.[email or web address] Social History Tobacco Use Types Packs/Day Years Used Date Smoking Tobacco: Never Assessed Sex and Gender Information Value Date Recorded Sex Assigned at Not on file Gender Identity Not on file Sexual Orientation Not on file Plan of Treatment Health Maintenance Due Date Last Done Comments COLOGUARD (AGES 45-75) - COL ON CA SCREENING 1970 COLON MONITORING 1970 COLONOSCOPY - COLON CA SCREENING 1970 CT COLONOGRAPHY - COLON CA SCREENING 1970 Colorectal Cancer Screening 1970 FIT - COLON CA SCREENING 1970 FLEX SIG - COLON CA SCREENING 1970 LIPID TESTING 1970 MAMMOGRAM 1970 PAP SMEAR 1970 HIV SCREENING 1985 HEPATITIS C SCREENING 11/15/1988 DTAP/TDAP/TD VACCINES (1 - Tdap) 1989 HEPATITIS B VACCINE (1 of 3 - 19+ 3-dose series) 1989 PNEUMOCOCCAL VACCINE 50+ (1 of 1 - PCV) 2020 ZOSTER VACCINE (1 of 2) 2020 COVID-19 VACCINE (1 - 2023-2 5 season) 2024 INFLUENZA VACCINE (#1) 2024 DEPRESSION SCREENING 10/06/2024 HIB VACCINE Aged Out No longer eligi ble based on patient's age to complete this topic HPV VACCINE Aged Out No longer eligi ble based on patient's age to complete this topic MENINGOCOCCAL (Group B) VACCINE Aged Out No longer eligible based on patient's age to complete this topic MENINGOCOCCAL VACCINE Aged Out No cooper andre eligible based on patient's age to complete this topic PNEUMOCOCCAL VACCINE Aged Out No long er eligible based on patient's age to complete this topic
[2024-11-01 12:46] LABS: Basophils Percent Auto 0.3 % (0.2-1.2); Eosinophils Percent Auto 0.2 % (0-4.4); Hematocrit 44.7 % (37.0-47.0); Hemoglobin 15.2 g/dL (12.0-15.0); Immature Granulocyte Absolute 0.04 K/mm3 (0.00-0.031); Immature Granulocyte Percent A 0.3 % (0-0.5); Lymphocytes Percent Auto 12.1 % (18.3-44.2); Mean Corpuscular Hemoglobin 30.7 pg (26-34); Mean Corpuscular Volume 90.3 fl (80-100); Mean Platelet Volume 9.6 fl (7.4-10.4); Monocytes Absolute Auto 1.1 K/mm3 (0.1-0.6); Monocytes Percent Auto 9.7 % (2.6-8.5); Neutrophils Percent Auto 77.4 % (45.5-73.1); Platelet Count Result 189 k/mm3 (150-375); Red Blood Count 4.95 M/mm3 (4.2-5.4); Red Cell Distribution Width 12.2 % (11.5-14.5); White Blood Count 11.6 K/mm3 (4.5-10.0)
[2024-11-01 12:59] LABS: Alanine Aminotransferase 28 U/L (6-35); Albumin Level 4.2 g/dL (3.5-5.1); Alkaline Phosphatase 74 U/L (38-126); Anion Gap 5 mmol/L (4-12); Aspartate Amino Transferase 25 U/L (14-36); Bilirubin,Total 1.6 mg/dL (0.2-1.3); Blood Urea Nitrogen 13 mg/dL (7-17); Calcium 8.8 mg/dL (8.4-10.2); Carbon Dioxide 27 mmol/L (22-30); Chloride 102 mmol/L (98-107); Estimated CRCL calculation 78 ml/min; Estimated Glomerular Filt Rate > 60; Glucose 98 mg/dL (65-110); Lipase 57 U/L (23-300); Sodium 134 mmol/L (137-145)
[2024-11-01 13:01] LABS: INR 1.1; Prothrombin Time 15.1 Seconds (11.1-14.7)
[2024-11-01 13:02] LABS: Partial Thromboplastin Time 28.1 Seconds (22.3-36.8)
[2024-11-01 13:11] LABS: Troponin I < 0.012 ng/mL (0.000-0.034)
[2024-11-01 13:35] LABS: Add Urine Microscopic? YES; Appearance Urine Turbid (Clear); Bacteria Urine 3+ /hpf; Bilirubin Urine Negative (Negative); Blood Urine Negative (Negative); Color Urine Dark Yellow (Yellow); Glucose Urine UA Negative (Negative); Ketones Urine 3+ mg/dL (Negative); Leukocyte Esterase Ur 2+ LEU/UL (Negative); Nitrate Urine Negative (Negative); Protein Urine Trace mg/dL (Negative); RBC Urine 0-2 /hpf (0-2); Specific Grav Ur 1.021 (1.001-1.035); Squamous Epithelial Cell Urine Many /hpf (Few); WBC Urine 51-100 /hpf (0-3)
[2024-11-01] MEDS: KETOROLAC 15 MG/ML VIAL (*BKC) IV PUSH (13:48)
[2024-11-01] MEDS: ONDANSETRON INJ 4 MG/2 ML VIAL IV PUSH (13:50)
[2024-11-01] MEDS: HYDROmorphone HCL INJ (*CRX) 1 MG/ML SYR 0.5 MG IV PUSH (13:51)
[2024-11-01 14:36] VITALS: BP 104/69; PULSE 100; RESP 16; O2SAT 97
--- OUTSIDE RECORDS SUMMARY | 2024-11-01 14:36 | XMS_ITS | Encounter Summary ---
Author Organization [facility] Address [address] [place] [address] Care Team Providers Care Configuration Consultant Name Role Phone Unavailable Primary Care Provider Unavailabl e Encounter Details Date Type Department Care Team (Late st Contact Info) Description 08/13/2023 Lab Requisition [facility] - DermPath Lab [address] [place] [address] Arnol Hicks MD [address] [place] [address] Social History Tobacco Use Types Packs/Day [...] Diagnosis Comments DERMATOPATHOLOGY Routine 08/12/2023 3:33 AM CUSTOM DRESSMAKER documented in this encounter Results * DERMATOPATHOLOGY (08/12/2023 3:33 AM CUSTOM DRESSMAKER) Case Report Dermatopathology Report ? Case: [id number] ? Authorizing Provider: ??Arnol Hicks MD ?Collected: ? 08/12/2023 03:33 AM ? Ordering Location: ? [facility] ? Received: ?08/13/2023 03:18 PM ? Pathologist: ? Josie Wallace MD ? Specimens: ?? A) - Skin, right upper chest below clavicle ? B) - Skin, left med breast sup ? 3 1:47 PM [facility] DERMATOPATHOLOGY LABORATORY Final Diagnosis Specimen A. SKIN, right upper chest below clavicle: LICHEN PLANUS-LIKE KERATOSIS (BENIGN LICHENOID KERATOSIS) , END STAGE (L82.1) Specimen B. SKIN, left med breast sup: LICHEN PLANUS-LIKE KERATOSIS (BENIGN LICHENOID KERATOSIS) (L82.1) 3 1:47 PM [facility] DERMATOPATHOLOGY LABORATORY Clinical History R/O SCC vs BCC vs LPLK 3 1:47 PM [facility] DERMATOPATHOLOGY LABORATORY Gross Description Specimen [...] 9x6x1 mm. Jar 0. 3 1:47 PM [facility] DERMATOPATHOLOGY LABORATORY Microscopic Description Specimen [...] and scattered necrotic keratinocytes. 3 1:47 PM C[facility] DR[facility]MAK[facility] DERMATOPATHOLOGY LABORATORY Disclaimer An external and internal positive and negative controls are appropriate for the histochemical, immunohistochemical and immunofluorescence stain(s) in this case (if any), except where stated explicitly. The performance characteristics of the stain(s) cited in this report were developed and its performance characteristic determined by the Dermatopathology Laboratory at [facility], directed by Dr. Suzette Martins. These tests need not be, and therefore are not, approved by the [place] Food and Drug Administration. The tests are used for clinical purposes. Billing Codes Specimen Charges Stain Charges 20497 74312 1 1 3 1:47 PM [facility] DERMATOPATHOLOGY LABORATORY Embedded Images 3 1:47 PM [facility] DERMATOPATHOLOGY LABORATORY Pathology/Cytology TISSUE SPECIMEN FROM SKIN / Unknown 08/12/2023 3:33 AM CUSTOM DRESSMAKER 08/13/2023 3:18 PM CUSTOM DRESSMAKER Miscellaneous samples (specimen) TISSUE SPECIMEN FROM SKIN / Unknown 08/12/2023 3:33 AM CUSTOM DRESSMAKER 08/13/2023 3:18 PM CUSTOM DRESSMAKER Arnol Hicks MD LAB - PATHOLOGY/CYTO LOGY ORDERABLES DERMATOPATHOLOGY LABORATORY [facility] - Department of Dermatology [address], [address] [phone] documented in this encounter Visit Diagnoses Not on filedocumented in this encounter
--- OUTSIDE RECORDS SUMMARY | 2024-11-01 14:36 | XMS_ITS | Encounter Summary ---
Author Organization [facility] Address [address] [place] [address] Phone Care Team Providers Care Yoke Setter Name Role Phone Bryan Pollock MD Primary Care Provider + [phone] Lizandro Colón Unavailable Unavailable Encounter Details Date [...] on file Legal Sex Female 2:03 AM REFERENCE AND INSTRUCTION LIBRARIAN Gender Identity Female 01/31/2021 3:51 PM CDT [...] on filedocumented in this encounter Care Teams Yoke Setter Relationship Specialty Start Date End Date Bryan Pollock MD PCP - General 10/30/17 Lizandro Colón 06/11/18 documented as of this encounter
--- OUTSIDE RECORDS SUMMARY | 2024-11-01 14:36 | XMS_ITS | Clinical Summary ---
Author Organization [facility] Address [address] [place] [address] Care Team Providers Care Active Directory Systems Administrator Name Role Phone Unavailable Primary Care Provider Unavailabl e Source Comments [facility],non-owned Affiliates and Associated Physician Practices is amultiple site organization consisting of ambulatory clinics and hospital sitesin [place], [place], [place] and [place]. This disclosure is being madepursuant to the Care Everywhere program and may not contain all information available regarding this patient. Last updated 18.[facility] [employer] Social History Tobacco Use Types Packs/Day Years [...]
--- OUTSIDE RECORDS SUMMARY | 2024-11-01 14:36 | XMS_ITS | Clinical Summary ---
Author Organization [facility] Address [address] [place] [address] Care Team Providers Care Ceramics Technician Name Role Phone Bryan Pollock MD Primary Care Provider + [phone] Lizandro Colón Unavailable Unavailable Allergies Active Allergy [...] we would recommend that she follow-up with weigh box tender and consider a CT scan of the [...] (12/04/2018): Added automatically from request for surgery [id number] Hematochezia 03/13/2018 Encounters Date Type Department Care Team Description 08/19/2024 Telephone [facility] Pulmonary [address] [facility] Advanced Medicine 8th [place] [address] [place] [phone] Omar Mckenzie RN 08/10/2024 Immunization [facility] Occupational Health [address] [facility] Medicine 5th [address] [place] [phone] Alesha Gomez from Last 3 Months Immunizations [...] on file Legal Sex Female 2:03 AM ADVERTISING REP Gender Identity Female 01/31/2021 3:51 PM CDT Sexual Orientation Straight 01/31/2021 3: 51 PM CDT 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 Not on file Not on file Not [...] 08/10/2024, 07/21/2023 Medical Devices Implanted Type Area Diagnostic Technologist Device Identifier Shelf Expiration Date Model / Serial / Lot Mirena Iud Vagina Procedures Procedure Name Priority Date/Time Associated Diagnosis Comments COLONOSCOPY 11/13/2021 1:25 PM ADVERTISING REP from Last 3 Months or Most Recently Relevant to Health Maintenance Results * COLONOSCOPY (11/13/2021 1:25 PM ADVERTISING REP) Anatomical Region Laterality Modality Other Narrative Procedure Note Dat Meeks MD PhD - 11/13/2021 1:25 PM CST ENDOSCOPY LAB Patient Name: Disha Koehler Procedure Date: 11/13/2021 1:25 PM Date of : 1970 Admit Type: Outpatient Age: 50 Gender: Female Attending MD: Dat Meeks MD,PHD Room: [facility] ENDOSCOPY ROOM 02 Note Status: Finalized Procedure: [...] The scope was passed under direct vision.The [id number] was introduced through the anusand advanced to [...] business hours - Please call theNurse Coordinator: [phone]. After hours, evening, nights, weekends and holidays- Please call the hospital marble cutter operator at and ask for the GI fellow refrigeration plant cork insulator. Attending Participation: I personally performed the entire procedure. Electronically signed by Dat Meeks MD. Dat Meeks MD, PHD 11/13/2021 1:52:18 PM Number of Addenda: 0 Note Initiated On: 11/13/2021 1:25 PM Dat Meeks MD PhD ENDOSCOPY PROCEDURES Cande l Result from Last 3 Months or Most Recently Relevant to Health Maintenance Insurance [facility] EMPLOYEES [employer] [facility] HMO/PPO Address: [facility] [address] [place] [address] [facility] CHOICE PLUS [employer] [facility] HMO/PPO Address: [address] [address] [place] [address] [facility] [employer] [facility] HMO/PPO Address: [address] [address] [place] [address] Advance Directives For more information, please contact: [phone] * Full Code (Latest Code Status on File) Date Activated Date Inactivated Comments 11/13/2021 11:40 AM 11/13/2021 6:40 PM * Full Code Date Activated Date Inactivated Comments 01/12/2019 9:25 AM 01/12/2019 5:31 PM Care Teams Ceramics Technician Relationship Specialty Start Date End Date Bryan Pollock MD PCP - General 10/30/17 Lizandro Colón 06/11/18
--- OUTSIDE RECORDS SUMMARY | 2024-11-01 14:36 | XMS_ITS | Referral Summary ---
Author Organization [facility] Address [address] [facility] [place] [address] Care Team Providers Care Street Light Servicer Name Role Phone Unavailable Primary Care Provider Unavailabl e Source Comments [facility],non-owned Affiliates and Associated Physician Practices is amultiple site organization consisting of ambulatory clinics and hospital sitesin [place], [place], [place] and [place]. This disclosure is being madepursuant to the Care Everywhere program and may not contain all information available regarding this patient. Last updated 18.[facility] Social History Tobacco Use Types Packs/Day Years Used Date Smoking Tobacco: Never Assessed Sex and Gender Information Value Date Recorded Sex Assigned at Not on file Gender Identity Not on file Sexual Orientation Not on file Plan of Treatment Not on file Alyssa Koehler Personal/Famil y Self 1970 ([place]) [address] [place], [place] [address] Alyssa Koehler Personal/Famil y Self 1970 ([place]) [address] [place] [place] [address]
--- OUTSIDE RECORDS SUMMARY | 2024-11-01 14:36 | XMS_ITS | Encounter Summary ---
Author Organization [facility] Address [address] [facility] [place] [address] Care Team Providers Care Earth Science Technical Officer Name Role Phone Unavailable Primary Care Provider Unavailabl e Encounter Details Date Type Department Care Team (Late st Contact Info) Description 01/22/2023 Lab Requisition [facility] [address] [facility] [place] [phone] Arnol Hicks MD [address] [place] [address] Social History Tobacco Use Types Packs/Day [...] CDT) Case Report Dermatopathology Report ? Case: [id number] ? Authorizing Provider: ??Arnol Hicks MD ?Collected: [...] specimen consists of a shave biopsy measuring 67l74u4 mm. Jar 0. 3 6:33 PM CDT [...] characteristic determined by the Dermatopathology Laboratory at [facility], directed by Dr. Suzette Martins. These tests need not be, and therefore are not, approved by the [place] Food and Drug Administration. The tests are used for clinical purposes. Billing Codes Specimen Charges Stain Charges 85551 1 3 6:33 PM CDT DERMATOPATHOLOGY LABORATORY Embedded Images 3 6:33 PM CDT DERMATOPATHOLOGY LABORATORY Pathology/Cytolog y TISSUE SPECIMEN FROM SKIN / Unknown 01/21/2023 01/22/2023 2:04 PM CDT Arnol Hicks MD LAB - PATHOLOGY/CYTO LOGY ORDERABLES DERMATOPATHOLOGY LABORATORY [facility] - Department of Dermatology [facility] Medicine [address] [place] [address], [address] [phone] documented in this encounter Visit Diagnoses Not on filedocumented in this encounter
--- OUTSIDE RECORDS SUMMARY | 2024-11-01 14:36 | XMS_ITS | Referral Summary ---
Author Organization [facility] Address [address] [place] [address] Care Team Providers Care Silk Spotter Name Role Phone Bryan Pollock MD Primary Care Provider + [phone] Lizandro Colón Unavailable Unavailable Encounters Date Type Department Care Team Description 08/19/2024 Telephone [facility] Pulmonary [address] [facility] 8th [place] [address] [place] [address] Omar Mckenzie RN 08/10/2024 Immunization [facility] Occupational Health [address] 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 on file Not on file Not [...] on file Medical Devices Implanted Type Area Promotional Marketing Agent Device Identifier Shelf Expiration Date Model / Serial / Lot Mirena Iud Vagina Procedures Procedure Name Priority Date/Time Associated Diagnosis Comments COLONOSCOPY 11/13/2021 1:25 PM FAMILY LAW PARALEGAL from Last 3 Months or Most Recently Relevant to Health Maintenance Results * COLONOSCOPY (11/13/2021 1:25 PM FAMILY LAW PARALEGAL) Anatomical Region Laterality Modality Other Narrative Procedure Note Dat Meeks MD PhD - 11/13/2021 1:25 PM CST ENDOSCOPY LAB Patient Name: Disha Koehler Procedure Date: 11/13/2021 1:25 PM Date of : 1970 Admit Type: Outpatient Age: 50 Gender: Female Attending MD: Dat Meeks MD,PHD Room: [facility] ENDOSCOPY ROOM 02 Note Status: Finalized [...] The scope was passed under direct vision.The [id number] was introduced through the anusand advanced to [...] business hours - Please call theNurse Coordinator: [phone]. After hours, evening, nights, weekends and holidays- Please call the hospital ethylene plant operator at and ask for the GI fellow compliance professional. Attending Participation: I personally performed the entire procedure. Electronically signed by Dat Meeks MD. Dat Meeks MD, PHD 11/13/2021 1:52:18 PM Number of Addenda: 0 Note Initiated On: 11/13/2021 1:25 PM Dat Meeks MD PhD ENDOSCOPY PROCEDURES Cande l Result from Last 3 Months or Most Recently Relevant to Health Maintenance [place] [address] [facility] EMPLOYEES [employer] CHO[employer] PLUS [employer] Advance Directives For more information, please contact: [phone] * Full Code (Latest Code Status on File) Date Activated Date Inactivated Comments 11/13/2021 11:40 AM 11/13/2021 6:40 PM * Full Code Date Activated Date Inactivated Comments 01/12/2019 9:25 AM 01/12/2019 5:31 PM Care Teams Silk Spotter Relationship Specialty Start Date End Date Bryan Pollock MD PCP - General 10/30/17 Lizandro Colón 06/11/18
--- OUTSIDE RECORDS SUMMARY | 2024-11-01 14:36 | XMS_ITS | Data Portability ---
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 Patient will come back in a year unless there are new symptoms. Not available 12/14/2020 11:11:04 08/03/2021 08/03/2021 Annual gynecological exam performed. Patient will come back in a year unless there are new symptoms. Not available 07/31/2021 16:46:37 Plan of Treatment Reminders Order Date Submit Date Provider Last Modified By Organization Details Last Modified Time Details Appointments MED CHECK 2024 01:00P Ren STUBBS MD Not available Not available Not available Lab test, urine 2020 021 [email or web address] [place], [address], [address], [place], [address], 10/23/2020 09:33:25 Referral plastic surgeon referral - Please call Alyssa to schedule an appt for a consult for breast reduction surgery. Never a smoker and bmi of 30.9. If you have any questions or require further informati on, please call me at [phone]. Thank you, TRISHA Sweeney 2020 021 FLO Dawkins MD, [address] [facility] [address], [place], [address], 03/10/2022 05:01:38 Procedures None recorded. Surgeries None recorded. Imaging US, pelvis 2023 024 [place], [address], [place], [address], 09/10/2024 11:39:44 US, transvagi nal 2023 024 FLO [place], [address], [place], [address], 09/10/2024 18:12:22 Medication Orders Mirena 21 mcg/24 hr (up to 8 years) 52 mg intrauter ine device 2020 021 [email or web address] Not available 10/23/2020 09:33:25 Vivelle-D ot 0.05 mg/24 hr transderm al patch 2023 024 FLO [id number], [address], [place], [place], [id number], 08/27/2024 11:38:32 Patient TargetsNo targets recorded. Patient InstructionsNo instructions recorded. Reason for Referral Plastic Surgeon Referral for Shoulder pain Please call Alyssa to schedule an appt for a consult for breast reduction surgery. Never a smoker and bmi of 30.9. If you have any questions or require further information, please call me at [phone]. Thank you, TRISHA Sweeney Referring Physician: Maren Hickey, FLIGHT INSPECTOR, Encounter Date: 08/03/2021 Results Created Date Observation Date Name Description Value Unit Range Abnormal Flag Note LastModifiedBy Organization Detail LastModifiedTime 10/20/19 21 10/21/2020 CT + NG DNA, PCR, unspe cifie d speci men trichomonas vaginalis, aptima (panther) NOT DETECT ED normal DNA testi ng perfo rmed by Trans cript ion Media judit Ampli ficat ion (TMA) These resul ts shoul d be inter prete d in light of all clini rich and labor atory findi ngs. This assay is highl y accur ate, but rare false posit nancy and negat nancy resul ts may occur . Posit nancy resul ts in low preva lence popul ation s may requi re re-ev aluat ion. A negat nancy resul t does not precl ude a possi ble infec tion due to a speci men inade quacy or sampl ing error . Test perfo rmed by [facility] [employer], d/b/a [employer] [facility], [address], [place] [address] , Maximino Ferrera ra, DO, Labor atory Direc tor. Not Available [facility] [address], [place], [address], 10/22/2020 02:10:55 10/20/19 21 10/21/2020 CT + NG DNA, PCR, unspe cifie d speci men neisseria gonorrhoeae, aptima NOT DETECT ED normal DNA testi ng perfo rmed by Trans cript ion Media judit Ampli ficat ion (TMA) These resul ts shoul d be inter prete d in light of all clini rich and labor atory findi ngs. This assay is highl y accur ate, but rare false posit nancy and negat nancy resul ts may occur . Posit nancy resul ts in low preva lence popul ation s may requi re re-ev aluat ion. A negat nancy resul t does not precl ude a possi ble infec tion due to a speci men inade quacy or sampl ing error . Test perfo rmed by [facility] [employer], [employer], d/b/a Aniceto roumaverick, [address], [place] [address] , Maximino Ferrera ra, DO, Labor atory Direc tor. Not Available [facility]) [address], [place], [address], 10/22/2020 02:10:55 10/20/19 21 10/21/2020 CT + NG DNA, PCR, unspe cifie d speci men chlamydia trachomatis, aptima NOT DETECT ED normal DNA testi ng perfo rmed by Trans cript ion Media judit Ampli ficat ion (TMA) These resul ts shoul d be inter prete d in light of all clini rich and labor atory findi ngs. This assay is highl y accur ate, but rare false posit nancy and negat nancy resul ts may occur . Posit nancy resul ts in low preva lence popul ation s may requi re re-ev aluat ion. A negat nancy resul t does not precl ude a possi ble infec tion due to a speci men inade quacy or sampl ing error . Test perfo rmed by [facility], d/b/a [facility], [address], [place] [address] , Maximino Ferrera ra, DO, Labor atory Direc tor. 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 Elect marky rafitanoel madiha d by Scar Wild ed, CT on 2020 at 12:48 PM ----- ----- ----- ----- ----- ----- ----- ----- ----- ----- ----- ----- ----- ----- ----- ----- ----- ---- HPV RESUL TS: HPV mRNA E6/E7 : No HPV mRNA Detec judit NOTE: This high risk HPV mRNA assay detec ts fourt een high- risk HPV types (16, 18, 31, 33, 35, 39, 45, 51, 52, 56, 58, 59, 66, 68) witho ut diffe renti ation . COMME NT: Note: This speci men was revie wed by a Cytot echno logis t and/o r Patho logis t (as indic ated in this repor t) after evalu ation using the Thinp rep Imagi ng Syste m. CLINI RICH INFOR MATIO N: Menst rual Statu s: LMP (if appli cable ): Clini rich Histo ry/Pr eviou s Pap: Type of Neopl padma (if appli cable ): Signi fican t Clini rich Findi ngs: Other Histo ry: Hormo marito (if appli cable ): PAP EDUCA ROLDAN L NOTE: The Pap Test is a scree eddy test with an inher ent false negat nancy rate. Liqui d-bas e sampl ing may decre ase, but will not elimi roxy, false negat nancy resul ts. A negat nancy resul t does not precl ude the prese nce and/o r devel opmen t of disea se, since the prese nce of abnor mal cells in the sampl e depen ds on the locat ion of the lesio n and sampl ing techn ique. Jason nued regul ar scree eddy is the best metho d of cance r preve ntion . If repor judit cytol ogic findi ng do not corre late with physi rich and/o r histo rical findi ngs, furth er inves tigat ion is recom janice d, as clini larisa warrana nted. Not Available [facility] (Lab) [address], [place], [address], 08/13/2021 13:50:23 01/23/2001/22/2021 MAMMO , scree eddy, bilat eral No observ ation record ed. F[facility] [address], [place], [address], 01/25/2021 00:20:20 09/09/20 24 09/10/2024 US, pelvi s No observ ation record ed. [facility] [address], [place], [address], 09/10/2024 18:12:12 09/09/20 24 09/10/2024 US, trans vagin al No observ ation record ed. [facility] [address], [place], [address], 09/10/2024 18:12:22 09/09/20 24 09/09/2024 US, pelvi s No observ ation record ed. FLO [address], [place], [address], 09/10/2024 13:56:25 Result Notes None recorded. Problems Name Problem SNOMED Code Status Onset Date Resolution Date Notes Provider Name and Address Organization Details Recorded Time Speciali julius medical examinat ion Completed 201307/31/2021 Routine gynecolog ical examinati on;Practi ce ID: 0001 Brianna chacon [facility] 16:37:08 Screenin g for malignan t neoplasm of cervix Completed 201307/31/2021 Pap Smear;Pra ctice ID: 0001 Brianna chacon [facility] 16:37:01 Screenin g for malignan t neoplasm of rectum Completed 201307/31/2021 Screening for malignant neoplasms of the rectum;Pr actice ID: 0001 [facility] 16:37:03 Finding of pattern of menstrua l cycle [id number] Completed 201407/31/2021 Excessive and frequent menstruat ion with irregular cycle;Pra ctice ID: 0001 Brianna chacon [facility] 16:36:50 Pregnanc y test negative [id number] Completed 201407/31/2021 Encounter for test, result negative; Practice ID: 0001 [facility] 16:36:57 Insertio n of intraute rine contrace ptive device Completed 201507/31/2021 Encounter for insertion of intrauter ine contracep tive device;Pr actice ID: 0001 Brianna chacon [facility] 16:36:53 Sinusiti s [id number] Completed 201507/31/2021 Chronic sinusitis , unspecifi ed;Practi ce ID: 0001 Brianna chacon [facility] 16:37:04 Contrace ptive sheath status 303835804 Completed 201507/31/2021 Encounter for routine checking of intrauter ine contracep dev;Pract ice ID: 0001 [facility] 16:36:[address] Concept Completed 201507/31/2021 Encntr for wellhead pumper exam (general) (routine) w/o abn findings; Practice ID: 0001 Brianna chacon [facility] 16:37:07 Hemorrha ge of rectum and anus 342388823 Completed 201607/31/2021 Hemorrhag e of anus and rectum;Pr actice ID: 0001 Brianna chacon [facility] 16:36:52 Body mass index 25-29 - overweig ht 744394856 Completed 201607/31/2021 Body mass index (BMI) 26.0-26.9 , adult;Rec orded Elsewhere : No Locati on: [facility] So urce: EHR Chron ic: N Practic e ID: 0001 Bill able Time: 02:30:00 PM Brianna Dueñas [facility] 16:36:[address] Concept Completed 201807/31/2021 Encntr for general adult medical exam w/o abnormal findings; Recorded Elsewhere : No Locati on: [facility] So urce: EHR Chron ic: N Practic e ID: 0001 Bill able Time: 09:15:00 AM Brianna Dueñas [facility] 16:37:06 Removal of intraute rine device Completed 201107/31/2021 REMOVAL OF IUD;Recor ded Elsewhere : No Locati on: [facility] So urce: EHR Chron ic: N Practic e ID: 0001 Bill able Time: 03:45:00 PM Brianna Dueñas [facility] 16:36:58 Reproduc tive care manageme nt Completed 201107/31/2021 Unspecifi ed procreati ve managemen t;Recorde d Elsewhere : No Locati on: [facility] So urce: EHR Chron ic: Y Practic e ID: 0001 Bill able Time: 02:30:00 PM Brianna Dueñas [facility] 1 16:37:00 Irregula r intermen strual bleeding 93165425 Completed 201507/31/2021 Metrorrhana pandya;Recor ded Elsewhere : No Locati on: [facility] So urce: EHR Chron ic: N Practic e ID: 0001 Bill able Time: 01:30:00 PM Brianna chacon [facility] 1 16:36:55 Female infertil ity [id number] Completed 201107/31/2021 Infertili ty, female, of unspecifi ed origin;Re corded Elsewhere : No Locati on: [facility] So urce: EHR Chron ic: N Practic e ID: 0001 Bill able Time: 09:30:00 AM Brianna Dueñas [facility] 16:36:48 Micturit ion finding Completed 201807/31/2021 Urinary incontine nce;Recor ded Elsewhere : No Locati on: [facility] So urce: EHR Chron ic: N Practic e ID: 0001 Bill able Time: 09:15:00 AM [facility] 16:36:44 Urinary tract infectio us disease 53576606 Completed 201107/31/2021 Urinary Tract Infection ;Recorded Elsewhere : No Locati on: [facility] So urce: EHR Chron ic: N Practic e ID: 0001 Bill able Time: 09:45:00 AM [facility] 16:37:10 Acute lymphade nitis of upper limb [id number] Completed 201507/31/2021 Acute lymphaden itis of axilla;Re corded Elsewhere : No Locati on: [facility] So urce: EHR Chron ic: N Practic e ID: 0001 Bill able Time: 01:30:00 PM Brianna chacon [facility] 16:36:41 Clinical finding Completed 201507/31/2021 Presence of (intraute rine) contracep tive device;Re corded Elsewhere : No Locati on: [facility] So urce: EHR Chron ic: N Practic e ID: 0001 Bill able Time: 03:45:[address] [facility] 16:36:45 Problem Notes None recorded. Procedures Surgical History Date Name Laterality Status Provider Name and Address Organization Details Recorded Time 024 Date of Last Mammogram completed [facility] 08/27/2024 10:47:06 021 Date of Last Pap Smear completed [facility] 08/27/2024 10:47:44 021 IUD Insertion completed Maren Hickey [facility] [address], [place], [address], [facility] 10/20/2020 12:31:05 019 Colonoscopy completed [facility] 07/31/2021 16:41:07 016 Colposcopy completed [facility] 07/31/2021 16:43:16 005 Colonoscopy completed [facility] 07/31/2021 16:40:45 Colonoscopy completed [facility] 08/03/2021 14:57:37 Hysteroscopy completed Karrie Cook [facility] 07/07/2020 11:00:35 loop electrosurgical excision procedure completed Karrie Cook [facility] 07/07/2020 11:00:40 Imaging Results Imaging Date Name Status LastModified by Organization Details LastModified Time 01/22/2021 MAMMO, screening, bilateral completed [facility] [address], [place], [address], 01/25/2021 00:20:20 09/10/2024 US, pelvis completed sandra [place] [address], [place], [address], 09/10/2024 18:12:12 09/10/2024 US, transvaginal completed sandra Richardll e [address], [place], [address], 09/10/2024 18:12:22 09/09/2024 [facility] [address], [place], [address], 09/10/2024 13:56:25 Procedure Notes None recorded. Medical Equipment None Reported. Allergies Allergen ID Allergen Name Allergen Category Reaction Reaction Severity Criticality Documentation Date Start Date Code Code System Note Provider Name and Address Organization Details Recorded Time 2235 Product containin g penicilli n and antibioti c (product) medicatio n Not available Not available Not available 07/07/2020 [id number] 05 PHILIPPE Cook [facility] 0 10:49:55 Medications Name Sig Start Date Stop Date Status Note LastModified by Organization Details LastModified Time Mirena 21 mcg/24 hr (up to 8 years) 52 mg intrauter ine device iud inserted 2020 active Not Available Not Available Not Avai lable prednison e 10 mg tablet TK 1 T PO TID 10/20 completed Not Available Not Available Not Available azithromy greg 250 mg tablet take 2 tablet by oral route every day for 1 day then 1 tablet (250 mg) by oral route once daily for 4 days 10/20 completed Not Available Not Available Not Available benzonata te 200 mg capsule TK 1 C PO TID FOR 10 DAYS PRF COUGH 10/20 completed Not Available Not Available Not Available sumatript an 100 mg tablet take 1 tablet by oral route once with fluids as early as possible after the onset of a migraine attack;m ay repeat after 2 hours if headache returns, not to exceed 200mgin 24hrs 10/20 completed Prescrib ed Elsewher e: Yes Loca tion: [facility] odify By: nora ryan DateTime : 02/28/20 17 02:30:00 PM Not Available Not Available Not Available phentermi ne 37.5 mg tablet TAKE 1 TABLET BY MOUTH DAILY 08/27 completed Not Available Not Available Not Available estradiol 0.05 mg/24 hr semiweekl y transderm al patch Apply 1 patch twice a week by transder mal route for 90 days. active Not Available Not Available No t Available doxycycli ne monohydra te 100 mg tablet TAKE 1 TABLET BY MOUTH TWICE DAILY 08/27 completed Not Available Not Available Not Available Macrobid 100 mg capsule take 1 capsule (100MG) by oral route every 12 hours with food 01/11 completed Prescrib ed Elsewher e: No Locat ion: [facility] odify By: brijesh ryan DateTime : 05/18/20 12 09:45:00 AM Not Available Not Available Not Available Celebrex 200 mg capsule 200 mg PO the night before and 400 mg PO morning of procedur e 02/19 completed Prescrib ed Elsewher e: No Locat ion: [facility] odify By: nora ryan DateTime : 09/22/20 15 11:28:27 AM Not Available Not Available Not Available alprazola m 0.5 mg tablet TAKE 1 TABLET BY MOUTH TWICE DAILY NEEDED FOR ANXIETY 08/27 completed Not Available Not Available Not Available Cipro 500 mg tablet take 1 tablet by oral route every 12 hours 02/27 completed Prescrib ed Elsewher e: No Locat ion: [facility] odify By: nora marinountsabino DateTime : 02/22/20 16 10:36:38 AM Not Available Not Available Not Available butalbita l-aspirin -caffeine 50 mg-325 mg-40 mg capsule take 1 capsule by oral route every 4 hours as needed not to exceed 6 capsules per 24hrs 02/27 completed Prescrib ed Elsewher e: Yes Loca tion: [facility] odify By: nora ryan DateTime : 02/20/20 16 01:30:00 PM Not Available Not Available Not Available omeprazol e 20 mg capsule,d elayed release TAKE 1 CAPSULE BY MOUTH DAILY 08/27 completed Not Available Not Available Not Available Macrodant in 100 mg capsule take 1 capsule (100MG) by oral route every 6 hours for 7 days with food 05/24 completed Prescrib ed Elsewher e: No Locat ion: [facility] odify By: sony gallo DateTime : 05/18/20 12 09:45:00 AM Not Available Not Available Not Available hydrocort isone 2.5 % topical cream 07/07 completed Not Available Not Available Not Available diazepam 10 mg tablet 10 mg PO 1 hour before the procedur e 02/19 completed Prescrib ed Elsewher e: No [facility] By: nora ryan DateTime : 09/22/20 15 11:28:27 AM Not Available Not Available Not Available albuterol sulfate HFA 90 mcg/actua tion aerosol inhaler INHALE 2 PUFFS BY MOUTH FOUR TIMES DAILY NEEDED FOR SOBOR WHEEZING 08/27 completed Not Available Not Available Not Available Vitamin D2 1,250 mcg (50,000 unit) capsule take 1 capsule by oral route every week 09/09 completed Prescrib ed Elsewher e: No Locat ion: [facility] odify By: nora ryan DateTime : 03/05/20 17 09:19:13 AM Not Available Not Available Not Available ketoconaz ole 2 % topical cream APPLY TO THE AFFECTED AREA TWICE DAILY 08/27 completed Not Available Not Available Not Available [place] 5 mg-325 mg tablet 2 tabs PO 2 hours before the procedur e 02/19 completed Prescrib ed Elsewher e: No [facility] By: amkuhl E ncounter DateTime : 09/22/20 15 11:28:27 AM Not Available Not Available Not Available cefdinir 300 mg capsule 07/07 completed Not Available Not Available Not Available fluticaso ne propionat e 50 mcg/actua tion nasal spray,annamarie pension SHAKE LQ AND U 2 SPRAYS IEN D 10/20 completed Not Available Not Available Not Available Clomid 50 mg tablet take 3 Tablet (150MG) by oral route every day d5-9 of cycle. 01/11 completed Prescrib ed Elsewher e: No [facility] By: brijesh Silver ncounter DateTime : 09/21/20 12 02:19:14 PM Not Available Not Available Not Available loratadin e 10 mg tablet TAKE 1 TABLET BY MOUTH DAILY active Not Available Not Available No t Available diazepam 5 mg tablet TAKE 1 TABLET BY MOUTH 30 TO 60 MINUTES BEFORE MRI 08/03 completed Not Available Not Available Not Available Bactrim DS 800 mg-160 mg tablet take 1 tablet by oral route every 12 hours 01/11 completed Prescrib ed Elsewher e: No Locat ion: [facility] odify By: brijesh Silver ncounter DateTime : 05/29/20 12 12:05:26 PM Not Available Not Available Not Available metoprolo l tartrate 25 mg tablet 08/03 completed Not Available Not Available Not Available Canasa 1,000 mg rectal supposito ry insert 1 supposit ory by rectal route every day at bedtime 10/20 completed Prescrib ed Elsewher e: Yes [facility] By: geoff Silver ncounter DateTime : 03/05/20 18 01:00:00 PM Not Available Not Available Not Available Vitamin D active Not Available Not Baylee ilable Not Available Vitamin D3 10 mcg (400 unit) capsule 12/14 completed Prescrib ed Elsewher e: Yes Loca tion: [facility] odify By: nora Silver ncounter DateTime : 09/09/20 17 08:30:00 AM Not Available Not Available Not Available Treximet 85 mg-500 mg tablet 03/05 completed Prescrib ed Elsewher e: Yes Loca tion: [facility] odify By: geoff ryan DateTime : 02/20/20 16 01:30:00 PM Not Available Not Available Not Available Dulera 100 mcg-5 mcg/actua tion HFA aerosol inhaler INHALE 1 PUFF BY MOUTH TWICE DAILY NEEDED. RINSE MOUTH WITH WATER AFTER USE. DO NOT SWALLOW active Not Available Not Available No t Available Anusol-HC 2.5 % topical cream with perineal applicato r apply by topical route 2 times every day to the affected area(s) 10/20 completed Prescrib ed Elsewher e: No [facility] odify By: colleen berry DateTime : 09/09/20 08:30:00 AM Not Available Not Available Not Available Paxlovid 300 mg (150 mg x 2)-100 mg tablets in a dose pack TAKE 2 NIRMATRE LVIR TABLET WITH 1 RITONAVI R TABLET TWICE DAILY FOR 5 DAYS 08/27 completed Not Available Not Available Not Available Vitals Date Recorded Body height Body mass index (BMI) Body weight Systolic blood pressure Diastolic blood pressure Provider Name and Address Organization Details Last Updated DateTime 12/14/2020 160.02 cm 30.3 kg/m2 79805.3 g 118 mm[Hg] 77 mm[Hg] Karrie Cook [facility] 15:06:01 Date Recorded Body height Body mass index (BMI) Body weight Systolic blood pressure Diastolic blood pressure Provider Name and Address Organization Details Last Updated DateTime 08/03/2021 157.48 cm 30.9 kg/m2 19989.11 g 130 mm[Hg] 76 mm[Hg] Brianna Dueñas [facility] 14:57:19 Date Recorded Body height Body mass index (BMI) Body weight Systolic blood pressure Diastolic blood pressure Provider Name and Address Organization Details Last Updated DateTime 08/27/2024 157.48 cm 29.6 kg/m2 96228.96 g 105 mm[Hg] 70 mm[Hg] Kianna Bush [facility] 4 10:54:43 Date Recorded Body height Body mass index (BMI) Body weight Systolic blood pressure Diastolic blood pressure Provider Name and Address Organization Details Last Updated DateTime 10/20/2020 160.02 cm 30.3 kg/m2 38210.58 g 101 mm[Hg] 71 mm[Hg] Karrie Joey [facility] 1 10:44:13 Social History Question Answer Notes LastModified by Organizat ion Details LastModified Time Tobacco Smoking Status Never Smoker Brianna Dueñas ines [facility] 08/03/2021 14:57:34 Do You Have An Advance Directive? No Information not available 12/14/2020 What Is Your Level Of Alcohol Consumption? Occasional Information not available 10/20/2020 If You Are , What Was Your Level Of Alcohol Consumption Prior To ? None Information not available 08/03/2021 How Many Years Have You Consumed Alcohol? 30 Information not available 12/14/2020 Are You Blind Or Do You Have Difficulty Seeing? No Information not available 12/14/2020 What Is Your Level Of Caffeine Consumption? Heavy Information not available 10/20/2020 How Much Tobacco Do You Chew? None Information not available 12/14/2020 In The 14 Days Before Symptom Onset, Have You Had Close Contact With A Laboratory-confir med COVID-19 While That Case Was Ill? No Information not available 12/14/2020 In The 14 Days Before Symptom Onset, Have You Had Close Contact With A Person Who Is Under Investigation For COVID-19 While That Person Was Ill? No Information not available 12/14/2020 Have You Been To An Area Known To Be High Risk For COVID-19? No Information not available 12/14/2020 Are You Deaf Or Do You Have Serious Difficulty Hearing? No Information not available 12/14/2020 What Type Of Diet Are You Following? REGULAR Information not available 12/14/2020 What Is The Highest Grade Or Level Of School You Have Completed Or The Highest Degree You Have Received? 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 0 Information not available 10/20/2020 Are There Any Guns Present In Your Home? No Information not available 08/03/2021 Have You Ever Been Counseled For Unhealthy Alcohol Use? No Information not available 08/03/2021 Do You Use Protection During Sex? Always Information not available 08/03/2021 Do You Use Your Seat Belt Or Car Seat Routinely? Yes Information not available 12/14/2020 Do You Have Smoke And Carbon Monoxide Detectors In Your Home? Yes Information not available 12/14/2020 How Much Tobacco Do You Smoke? No Information not available 12/14/2020 Do You Feel Stressed (tense, Restless, Nervous, Or Anxious, Or Unable To Sleep At Night)? [id number] Information not available 12/14/2020 Do You Use Any Illicit Or Recreational Drugs? No Information not available 10/20/2020 Do You Use Sunscreen Routinely? Yes Information not available 12/14/2020 Has Tobacco Cessation Counseling Been Provided? No Information not available 08/03/2021 Have You Used IV Drugs? No Information not available 12/14/2020 Do You Or Have You Ever Used Any Other Forms Of Tobacco Or Nicotine? No Information not available 08/03/2021 How Many Days In The Past Year Have You Consumed 4 Or More Drinks? 10 Information no t available 08/03/2021 Sex: Unknown Functional Status Question Answer Note LastModified by Organizat ion Details LastModified Time Are you able to walk? YESWOREST Information not available 12/14/2020 What is your exercise level? Occasional Information not available 10/20/2020 Mental Status None recorded. Family History Relationship Description Onset Age of this Age Resolved Age Notes LastModified by Organization Details LastModified Time Unspecified Relation Hypertensive disorder Not available 2019 10:59:22 Unspecified Relation Heart disease Not available 2019 10:59:50 Paternal Grandfather Hypertensive disorder Not available 2019 10:59:27 Maternal Grandfather Heart disease Not available 2019 10:59:50 Paternal Grandmother Heart disease Not available 2019 10:59:50 Maternal Grandmother Heart disease Not available 2019 10:59:50 Maternal Grandmother Deep venous thrombosis Not available 08/27 10:44:59 Maternal Grandmother Disorder of thyroid gland Not available 2019 11:00:27 Sister Infertile Not availab le 08/27/2024 10:44:59 Sister Cyst of ovary [email or web address] Not available 2023 10:44:59 Mother Cyst of ovary [email or web address] Not available 2023 10:44:59 Medical History Condition Response Asthma Y Gynecological History Statement/Question Response Date of Last Mammogram 07/01/2024 On BCP's at Conception? N Y STIs/STDs N Colposcopy 10/13/2015 13 Current Control Method IUD Age at First Child 29 Sexually Active? Y Age of first menstrual cycle 13 Date of Last Pap Smear 08/03/2021 Sexual Problems? N Desired Control Method IUD LMP Unknown N Obstetrics History GPAL:G 2 P 0 0 0 2 Type Value Living 2 Total 2 Past Encounters Encounter ID Performer Location Encounter Start Date Encounter Closed Date Diagnosis/Indication Diagnosis SNOMED-CT Code Diagnosis ICD10 Code Diagnosis Note [id number] GINO Perez-[facility] [address] [address] 07/07/2020 10:49:10 07/07/2020 12:31:42 Gynecologic examination 28351928 Z01.419 Suggested Calcium with Vitamin D 1200-1500m g daily. Patient advised to get an annual flu shot in the fall and she could obtain at [facility] or [facility] take care clinic. Also to obtain TDap vaccinatio n if you have not had one in the last 10 years. Recommend yearly mammograms . Encouraged monthly self breast exams. Encourage safe sexual practices, to use condoms and limit partners if not already in a monogamous relationsh ip. Engage in daily exercise of low impact aerobic exercise 45-60 minutes 4-5 times weekly. Avoid tobacco and illicit drugs as well as using moderation with alcohol intake less than 1-2 8 oz beverages daily. This lifestyle behavior pattern will lead to less health conditions and longer life span. If BMI greater than 25 weight watchers or dietary consult advised. All questions have been answered. Patient appears to understand informatio n, but if you have any questions please call or respond to this email. Normal pap/hpv hx Mirena IUD 11/02/2015 placed. Climacteric flushing [id number] N95.1 Having some perimenopa usal/menop ausal sx's She has mirena IUD. Aware that FSH/LH results might be skewed by this device but we can get an idea if menopausal changes are related to her complaints . [id number] GINO Perez-[facility] [address] [address] 10/20/2020 10:28:47 10/20/2020 12:35:49 Contraception care management 706102592 Z30.9 test negative [id number] Z32.02 Insertion of intrauterine contraceptive device 02616849 Z30.430 Patient is here for IUD Removal/re placement placement prior to expiration of her current device. She has been counseled on all of the r/b/a of placement of an intrauteri ne device that include but are not limited to uterine perforatio n, injury to cervix, vagina, bladder, and bowel.Risk s of bleeding due to injury or increased irregular bleeding due to progestin effect of the device. Risks of infection would be increased within the first 21 days of placement with concommite nt cervicitis . She understand s that the device will need to be removed in this instance due to increased risk of Pelvic inflammato ry disease. Patient is aware she is at highter risk for STD and if contracted she could lose her fertility. Pt is aware that if ocurs that she should contact office immediatel y to rule out ectopic which could be life threatenin g. IUD will also need to be removed and this could cause miscarriag e. Patient also informed that in the event her strings are absent or embedded at the time of removal she may need to have the IUD surgically removed. She was informed of the above and properly consented. IUD placed w/o complicati on. Patient should return to office after next period to check for string placement. Patient to expect irregular bleeding but should be seen in the ED if bleeding increases to soaking a pad an hour for at least 2 hours. She verbalized understand ing. Removal of intrauterine device [id number] Z30.432 We discussed the timing of the replacemen t with the next bleed or the need to abstain if she no longer has regular cycles. She expressed understand ing. It was explained that she may have bleeding or spotting after the removal of the device today as well. If cannot see the strings of this device we will need to get an US image to make that the device is still in place and not in an unobtainab le position. She expressed understand ing of all the above instructio ns. [id number] Maren Hickey [facility] [address],[facility] [place] [address] 12/14/2020 15:01:02 12/14/2020 15:43:56 IUD check [id number] Z30.431 Patient is here today for 4wk IUD string check. She reports she is doing well after placement of this device. She is eating/dri nking/slee ping well. She has no adverse side effects from use of this device. She wishes to continue this therapy. Additional precaution marcelino measures were taken to minimize potential exposure to the Covid-19 virus during this patient? s visit, including available hand bottle washing machine operator upon arrive, temperatur e check and being asked a series of screening questions. All staff wore face coverings during this encounter, as well as provided additional cleaning and sanitizing of all surfaces, including counter-to ps, pens, chairs, door handles, light switches, etc, prior to and following the patient? s visit. Time spent in visit is a total of 15 mins with at least 50% of visit consisting of counseling and review of plan of care. [id number] Maren Hickey [facility] [address],[facility] [place] [address] 08/03/2021 14:45:59 08/03/2021 15:46:32 Gynecologic examination [id number] Z01.419 Suggested Calcium with Vitamin D 1200-1500m g daily. Patient advised to get an annual flu shot in the fall and she could obtain at [facility] or [facility] care clinic. Also to obtain TDap vaccinatio n if you have not had one in the last 10 years. Recommend yearly mammograms . Encouraged monthly self breast exams. Encourage safe sexual practices, to use condoms and limit partners if not already in a monogamous relationsh ip. Engage in daily exercise of low impact aerobic exercise 45-60 minutes 4-5 times weekly. Avoid tobacco and illicit drugs as well as using moderation with alcohol intake less than 1-2 8 oz beverages daily. This lifestyle behavior pattern will lead to less health conditions and longer life span. If BMI greater than 25 weight watchers or dietary consult advised. All questions have been answered. Patient appears to understand informatio n, but if you have any questions please call or respond to this email.STD screen declined Normal pap/hpv hx Mirena IUD 11/02/2015 placed.Dre dudley orderedCol on-PCP managed Shoulder pain [id number] M 25.519 G89.29 Requested referral for consult breast reduction. [id number] NIKIA STUBBS MD [place] [address] [address] 08/27/2024 10:44:07 08/27/2024 11:39:18 Hormone replacement therapy [id number] Z79.890 - patient reports worsening menopausal symptoms over the past few years We discussed Menopausal Hormone therapy (MHT) for women with intact uterus with the goals of reliving vaso-motor sx's using estrogen/p rogestin therapy (EPT) using lowest doses for shortest duration in women 40-59yo. Contraindi cations include: Hx of DVT or thrombolic events, High cholestero l, Hx of breast cancer, known CHD, active liver disease, unexplaine d vag bleeding, high risk endometria l cancer, TIA. Side effects can include but are not limited to: Irregular vag bleeding,, breast tenderness , nausea, weight changes, libido changes, nausea. Adverse Rxn: Elevated BP migraine w/ visual changes, breast cancer dx, AR/stroke, DVT/PE, Endometria l cancer. Please contact office with any new or worsening side effects or adverse reactions. Or if a medical emergency please go to nearest ED/[facility]ency care for further evaluation . RTC 3 months for med check Abnormal u terine bleeding [id number] 9100 N93.9 - patient reports two day long episodes of bleeding since May- Mirena IUD in place, due out 10/2028- IUD strings visualized on exam- will order pelvic US to ensure correct placement [id number] Dnoa Rose [place] [address] [address] 09/09/2024 17:32:59 09/10/2024 11:39:44 Abnormal uterine bleeding [id number] 9100 N93.9 Health Concerns Section Related Observation LastModified by Organization Detai ls LastModified Time None Recorded Concern Status LastModified by Organization Details LastModified Time None Recorded Advance Directives Directive N: Payers Encounter Date Sequence Insurance Name Policy Number Policy Castro Covered Member ID Castro Member ID Guarantor Name 10/20/2020 1 [facility] [id number] Alyssa L Rodo [id number] Alyssa L Rodo 12/14/2020 1 [facility] [id number] Alyssa L Rodo [id number] Alyssa L Rodo 08/03/2021 1 [facility] [id number] Alyssa L Rodo [id number] Alyssa L Rodo 08/27/2024 1 [facility] [id number] Alyssa L Rodo [id number] Alyssa L Rodo 09/09/2024 1 [facility] [id number] Alyssa L Rodo [id number] Alyssa L Rodo Notes Date Note Type Note Provider Name and Address Organization Details Recorded Time 10/20/2020 text/html Patient presents for IUD insertion. GINO [facility] [address], [place], [address], [facility] 10/20/2020 12:32:49 12/14/2020 text/html Patient is here today for 4wk IUD string check. She reports she is doing well after placement of this device. She is eating/drinking/sl eeping well. She has no adverse side effects from use of this device. She wishes to continue this therapy. RINA Perez [address], [place], [address], [facility] 12/14/2020 15:41:39 08/03/2021 text/html Annual GYNReport ed bypatient.Menstrua l cycle:Normal menses (Amenorrheic with IUD) Urinary symptoms:No hematuria; No incontinence Vulva:No genital lesion Vagina:Normal vaginal discharge Breast:No breast pain; No breast lump; No nipple discharge; Large breasts causing neck/back/shoulder pain. Current Contraception:Sati sfied with current contraception; Monogamous relationship; Intrauterine device (iud) Sexual complaints:No sexual complaints; No pain during intercourse; Normal libido Menopausal Symptoms:No menopausal symptoms; Normal vaginal lubrication Psychological symptoms:No depression; No anxiety; No PMDD Preventive measures:Encourage self breast examination; Encourage regular exercise; Encourage no tobacco use; Encourage regular mammograms starting age 40; Followed with Q3 year pap smear and high risk HPV typing; Needs to schedule mammogram; Up to date on colonoscopy screening Maren Hickey [facility] [address], [place], [address], [facility] 08/03/2021 15:15:46 08/27/2024 text/html Patient presents for evaluation of irregular bleeding. She reports one day of heavy bleeding in May, followed by an episode of spotting for a day 2 week ago. She has a Mirena IUD in place since 2020. She reports overall amenorrhea since placement. She also reports hot flashes, tinnitus, palpitations, weight gain over the past few years. She has been evaluated by GI and cardiology and found no etiology. NIKIA STUBBS MD [address], [place], [address], [facility] 08/27/2024 11:38:39 OBGyn Episode Ob Episode Information Episode Created Date Number of Fetuses Patient Bloodtype Patient rh Status Prepregnancy Weight lbs Domestic Partner Domestic Partner Phone Father Name Wire Annealer Status 07/07/20 20 1 CLOSED Fetus Data First Name Last Name Admitted to NICU Weight (g) Sex Living Outcome Pediatric Complications Fetus ID Race Codes Race Delivery Type 4110.45 0704 M Full Term [id number] Vaginal Delivery Jt Calculation Initial Jt Date Initial Exam Date Initial Exam Provider Initial Ultrasound Date Last Menstrual Period Date Ultra Sound Weeks Gestation 0 Eighteen To Twenty Week Jt Update Ultra Sound Date Fundal Height At Umbil Quickening Date Ultra Sound Latest Weeks Gestation Final Jt Confirmed By Final Jt Confirmed Date Final Jt Date Ultra Sound Latest Days Gestation 0 0 Menstrual History Last Menstrual Date Menses Monthly On Bcp Conception Prior Menses Frequency Hcg Plus Date Menarche Onset Age Delivery Information Delivery Date Delivery Type Labor Anesthesia Weeks Gestation Incision Type Labor Labor Length Hrs Delivered By Post Complications Tubal Sterilization Discharge Date Comments 2 Discharge Information Feeding Method Contraceptive Method Maternal HG B and HCT Levels Ob Episode Information Episode Created Date Number of Fetuses Patient Bloodtype Patient rh Status Prepregnancy Weight lbs Domestic Partner Domestic Partner Phone Father Name Wire Annealer Status 07/07/20 20 1 CLOSED Fetus Data First Name Last Name Admitted to NICU Weight (g) Sex Living Outcome Pediatric Complications Fetus ID Race Codes Race Delivery Type 3175.14 4 F Full Term [id number] Vaginal Delivery Jt Calculation Initial Jt Date Initial Exam Date Initial Exam Provider Initial Ultrasound Date Last Menstrual Period Date Ultra Sound Weeks Gestation 0 Eighteen To Twenty Week Jt Update Ultra Sound Date Fundal Height At Umbil Quickening Date Ultra Sound Latest Weeks Gestation Final Jt Confirmed By Final Jt Confirmed Date Final Jt Date Ultra Sound Latest Days Gestation 0 0 Menstrual History Last Menstrual Date Menses Monthly On Bcp Conception Prior Menses Frequency Hcg Plus Date Menarche Onset Age Delivery Information Delivery Date Delivery Type Labor Anesthesia Weeks Gestation Incision Type Labor Labor Length Hrs Delivered By Post Complications Tubal Sterilization Discharge Date Comments 0 40 Discharge Information Feeding Method Contraceptive Method Maternal HG B and HCT Levels
--- OUTSIDE RECORDS SUMMARY | 2024-11-01 14:36 | XMS_ITS | Encounter Summary ---
Author Organization [facility] Health Address [address] [place] [address] Care Team Providers Care Microsoft Dynamics Consultant Name Role Phone Unavailable Primary Care Provider Unavailabl e Encounter Details Date Type Department Care Team (Late st Contact Info) Description 02/07/2022 Lab Requisition [facility] Care DermPath Lab [address] [place] [id number] Arnol Hicks MD [address] [place] [address] Social History Tobacco Use Types Packs/Day [...] CDT) Case Report Dermatopathology Report ? Case: [id number] ? Authorizing Provider: ??Arnol Hicks MD ?Collected: [...] specimen consists of a shave biopsy measuring [id number]. Jar 0. 2 6:53 PM CDT DERMATOPATHOLOGY [...] characteristic determined by the Dermatopathology Laboratory at [facility], directed by Dr. Suzette Martins. These tests need not be, and therefore are not, approved by the [place] Food and Drug Administration. The tests are used for clinical purposes. Billing Codes Specimen Charges Stain Charges 51598 1 2 6:53 PM CDT DERMATOPATHOLOGY LABORATORY Embedded Images 2 6:53 PM CDT DERMATOPATHOLOGY LABORATORY Pathology/Cytolo gy TISSUE SPECIMEN FROM SKIN / Unknown 02/06/2022 3:33 AM CDT 02/07/2022 1:48 PM CDT Arnol Hicks MD LAB - PATHOLOGY/CYTO LOGY ORDERABLES DERMATOPATHOLOGY LABORATORY [facility] - Department of Dermatology [facility] [address] [place] [address], [address] [phone] documented in this encounter Visit Diagnoses Not on filedocumented in this encounter
--- OUTSIDE RECORDS SUMMARY | 2024-11-01 14:36 | XMS_ITS | Patient Health Summary ---
Author Organization [facility] Address [address] [place] [address] Care Team Providers Care Heat Treater Head Name Role Phone Unavailable Primary Care Provider Unavailabl e Note from [facility],non-owned Affiliates and Associated Physician Practices is amultiple site organization consisting of ambulatory clinics and hospital sitesin [place], [place], [place] and [place]. This disclosure is being madepursuant to the Care Everywhere program and may not contain all information available regarding this patient. Last updated 18.[facility] Social History Tobacco Use Types Packs/Day Years Used Date Smoking Tobacco: Never Assessed Sex and Gender Information Value Date Recorded Sex Assigned at Not on file Gender Identity Not on file Sexual Orientation Not on file Procedures * DERMATOPATHOLOGY(Performed 08/12/2023) * DERMATOPATHOLOGY(Performed 01/21/2023) * DERMATOPATHOLOGY(Performed 02/06/2022) * DERMATOPATHOLOGY(Performed 10/10/2021) * DERMATOPATHOLOGY(Performed 06/22/2019) * DERMATOPATHOLOGY(Performed 06/21/2015) Results * DERMATOPATHOLOGY (08/12/2023 3:33 AM CONGRESSIONAL DISTRICT AIDE) Only the most recent of6 resultswithin the time period is included. Case Report Dermatopathology Report ? Case: [id number] ? Authorizing Provider: ??Arnol Hicks MD ?Collected: ? 08/12/2023 03:33 AM ? Ordering Location: ? [facility] DermPath Lab ? Received: ?08/13/2023 03:18 PM ? Pathologist: ? Josie Wallace MD ? Specimens: ?? A) - Skin, right upper chest below clavicle ? B) - Skin, left med breast sup ? 3 1:47 PM [facility] DERMATOPATHOLOGY LABORATORY Final Diagnosis Specimen A. SKIN, right upper chest below clavicle: LICHEN PLANUS-LIKE KERATOSIS (BENIGN LICHENOID KERATOSIS) , END STAGE (L82.1) Specimen B. SKIN, left med breast sup: LICHEN PLANUS-LIKE KERATOSIS (BENIGN LICHENOID KERATOSIS) (L82.1) 3 1:47 PM [facility] DERMATOPATHOLOGY LABORATORY Clinical History R/O SCC vs BCC vs LPLK 3 1:47 PM [facility] DERMATOPATHOLOGY LABORATORY Gross Description Specimen A: Received [...] 9x6x1 mm. Jar 0. 3 1:47 PM [facility] DERMATOPATHOLOGY LABORATORY Microscopic Description Specimen A. SKIN, right upper chest below clavicle: The epidermis is mildly acanthotic. There is a patchy lichenoid infiltrate with vacuolar changes of basilar keratinocytes and scattered necrotic keratinocytes. Specimen B. SKIN, left med breast sup: The epidermis is mildly acanthotic. There is a lichenoid infiltrate with vacuolar changes of basilar keratinocytes and scattered necrotic keratinocytes. 3 1:47 PM CONGRESSIONAL DISTRICT AIDE DERMATOPATHOLOGY LABORATORY Disclaimer An external and internal positive and negative controls are appropriate for the histochemical, immunohistochemical and immunofluorescence stain(s) in this case (if any), except where stated explicitly. The performance characteristics of the stain(s) cited in this report were developed and its performance characteristic determined by the Dermatopathology Laboratory at [facility], directed by Dr. Suzette Martins. These tests need not be, and therefore are not, approved by the [place] Food and Drug Administration. The tests are used for clinical purposes. Billing Codes Specimen Charges Stain Charges 44381 55479 1 1 3 1:47 PM CONGRESSIONAL DISTRICT AIDE DERMATOPATHOLOGY LABORATORY Embedded Images 3 1:47 PM CONGRESSIONAL DISTRICT AIDE DERMATOPATHOLOGY LABORATORY Pathology/Cytology TISSUE SPECIMEN FROM SKIN / Unknown 08/12/2023 3:33 AM CONGRESSIONAL DISTRICT AIDE 08/13/2023 3:18 PM CONGRESSIONAL DISTRICT AIDE Miscellaneous samples (specimen) TISSUE SPECIMEN FROM SKIN / Unknown 08/12/2023 3:33 AM CONGRESSIONAL DISTRICT AIDE 08/13/2023 3:18 PM CONGRESSIONAL DISTRICT AIDE Arnol Hicks MD LAB - PATHOLOGY/CYTO LOGY ORDERABLES DERMATOPATHOLOGY LABORATORY [facility] - Department of Dermatology [address], [address] [phone]
--- OUTSIDE RECORDS SUMMARY | 2024-11-01 14:37 | XMS_ITS | Encounter Summary ---
Author Organization [facility] Health Address [address] [place] [address] Care Team Providers Care Commercial Litigation Associate Name Role Phone Unavailable Primary Care Provider Unavailabl e Encounter Details Date Type Department Care Team (Late st Contact Info) Description 10/12/2021 Lab Requisition [facility] Care DermPath Lab [address] [facility] [place] [phone] Arnol Hicks MD [address] [place] [address] Social History Tobacco Use Types Packs/Day [...] Comments DERMATOPATHOLOGY Routine 10/10/2021 12:0 0 AM MULLING MACHINE OPERATOR documented in this encounter Results * DERMATOPATHOLOGY (10/10/2021 12:00 AM MULLING MACHINE OPERATOR) Case Report Dermatopathology Report ? Case: [id number] ? Authorizing Provider: ??Arnol Hicks MD ?Collected: ? 10/10/2021 12:00 AM ? Ordering Location: ? [facility] ?Received: ?10/12/2021 12:31 PM ? Pathologist: ? Jael Vega, ? MD ? Specimen: ?Skin, right lateral abdomen ? 2 12:09 PM [facility] DERMATOPATHOLOGY [facility]ORAT[facility] Final Diagnosis Specimen A. SKIN, right lateral abdomen: LENTIGINOUS MELANOCYTIC NEVUS, JUNCTIONAL TYPE, IRRITATED (JUNCTIONAL MELANOCYTIC NEVUS WITH ARCHITECTURAL DISORDER) (D22.5) POST-INFLAMMATORY PIGMENT ALTERATION (L81.9) NOT PRESENT AT SAMPLED MARGIN 2 12:09 PM [facility] DERMATOPATHOLOGY LABORAT[facility] Clinical History R/O dysplasia nevus. Check margins. 2 12:09 PM [facility] DERMATOPATHOLOGY [facility] Gross Description Specimen A: Received is one formalin filled container labeled with the patients name and designated right lateral abdomen. The specimen consists of a shave removal measuring [id number]. The margin is inked green. Jar 0. 2 12:09 PM [facility] DERMATOPATHOLOGY [facility]ORAT[facility] Microscopic Description Specimen A. [...] margin of the specimen. 2 12:09 PM [facility] DERMATOPATHOLOGY [facility] Disclaimer An external and internal positive and negative controls are appropriate for the histochemical, immunohistochemical and immunofluorescence stain(s) in this case (if any), except where stated explicitly. The performance characteristics of the stain(s) cited in this report were developed and its performance characteristic determined by the Dermatopathology Laboratory at [facility], directed by Dr. Suzette Martins. These tests need not be, and therefore are not, approved by the [place] Food and Drug Administration. The tests are used for clinical purposes. Billing Codes Specimen Charges Stain Charges 36377 1 2 12:09 PM [facility] DERMATOPATHOLOGY [facility]OR[facility] Embedded Images 2 12:09 PM [facility] DERMATOPATH[facility]Y [facility] Pathology/Cytolog y TISSUE SPECIMEN FROM SKIN / Unknown 10/10/2021 10/12/2021 12:31 PM MULLING MACHINE OPERATOR Arnol Hicks MD LAB - PATHOLOGY/CYTO LOGY ORDERABLES DERMATOPATHOLOGY LABORATORY [facility] - Department of Dermatology [address], [address] [phone] documented in this encounter Visit Diagnoses Not on filedocumented in this encounter
--- OUTSIDE RECORDS SUMMARY | 2024-11-01 14:37 | XMS_ITS | Encounter Summary ---
Author Organization [facility] Health Address [address] [facility] [place] [address] Care Team Providers Care Manager Project Management Name Role Phone Unavailable Primary Care Provider Unavailabl e Encounter Details Date Type Department Care Team (Late st Contact Info) Description 06/23/2019 Lab Requisition [facility] Care DermPath Lab [address] [facility] [place] [place] [phone] Arnol Hicks MD [address] [place] [address] Social History Tobacco Use Types Packs/Day [...] CDT) Case Report Dermatopathology Report ? Case: [id number] ? Authorizing Provider: ??Arnol Hicks MD ?Collected: [...] characteristic determined by the Dermatopathology Laboratory at [facility], directed by Dr. Suzette Martins. These tests need not be, and therefore are not, approved by the [place] Food and Drug Administration. The tests are used for clinical purposes. Billing Codes Specimen Charges Stain Charges 87600 1 9 4:57 PM [facility] DERMATOPATHOLOGY LABORATORY Embedded Images 9 4:57 PM [facility] DERMATOPATHOLOGY LABORATORY Pathology/Cytolog y TISSUE SPECIMEN FROM SKIN / Unknown 06/22/2019 06/23/2019 1:48 PM CDT Arnol Hicks MD LAB - PATHOLOGY/CYTO LOGY ORDERABLES DERMATOPATHOLOGY LABORATORY [facility] - Department of Dermatology [address] [place] [address] 5th Floor Lab [address] [phone] documented in this encounter Visit Diagnoses Not on filedocumented in this encounter
--- OUTSIDE RECORDS SUMMARY | 2024-11-01 14:37 | XMS_ITS | Clinical Summary ---
Author Organization [employer] [address] [place] [id number] [place] [id number] Care Team Providers Care Department Editor Name Role Phone Bryan Pollock MD Primary Care Provider [phone] Social History Tobacco Use Types Packs/Day Years [...] age to complete this topic Care Teams Department Editor Relationship Specialty Start Date End Date Bryan Pollock MD [address] [place] [address] PCP - General Family Practice 12/23/22
== END 2024-11-01 14:37 | disposition home or self-care (01) ==
LOC: ANHED 13:50
PROVIDERS: Registered Nurse; Emergency Provider Emergency Medicine; PCP Family Medicine
DX: K57.32 Diverticulitis of large intestine without perforation or abscess without bleeding (principal); R16.0 Hepatomegaly, not elsewhere classified; J45.909 Unspecified asthma, uncomplicated; K21.9 Gastro-esophageal reflux disease without esophagitis
CPT/HCPCS: 36415; 74177; 80053; 81001; 83690; 84484; 85025; 85610; 85730; 93005; 96374; 96375; 99284; J1171; J1885; J2405; Q9967

== ENCOUNTER 2024-11-22 12:59 | Emergency (ER) | payer OTHER, SELFPAY ==
[2024-11-22 13:24] VITALS: BP 114/70; PULSE 71; RESP 16; TEMP 36.6; O2SAT 100
--- NOTE | 2024-11-22 13:41 | ED.URI ---
HPI - URI/Sore Throat General Chief Complaint: Upper Respiratory Infection Stated Complaint: throat pain History of Present Illness HPI Narrative: 54 y/o female presented for c/o sore throat and fatigue. Onset 2 days. Using cough drops. Denies any other symptoms. Related Data Home Medications ?Medication ?Instructions ?Recorded ?Confirmed ?Last Taken ?Type cholecalciferol (vitamin D3) 1,250 1,250 mcg PO WEEKLY 09/17/23 11/05/24 Unknown History mcg (50,000 unit) tablet loratadine 10 mg tablet (Allergy 10 mg PO DAILY 09/17/23 11/05/24 Unknown History Relief (loratadine)) mometasone-formoterol HFA 50 mcg-5 2 inh inhalation ONCE 11/05/24 11/05/24 Unknown History mcg/actuation aerosol inhaler (Dulera) Allergies Allergy/AdvReac Type Severity Reaction Status Date / Time Penicillins AdvReac Unknown PT STATES Verified 11/22/24 13:18 IT DOESNT WORK AT ALL Review of Systems Review of Systems: per HPI PMFSH Past Medical History Medical History Weight gain RLQ abdominal pain Hemangioma Liver mass History of IBS GERD (gastroesophageal reflux disease) Bloating Right upper quadrant pain History of vertigo History of tachycardia BMI 29.0-29.9,adult BMI 30.0-30.9,adult History of vaginal delivery Menopausal hot flushes Screening mammogram for high-risk patient Screening for lipid disorders Fatigue BMI 28.0-28.9,adult Encounter for screening colonoscopy Body mass index [BMI] 27.0-27.9, adult Asthma Surgical History Surgical History History of repair of ACL Family History Family History Father Throat cancer Cerebrovascular accident Mother Heart disease Sibling Gallstones Other Hypertension Social History Social History Smoking status: Never smoker Second hand tobacco smoke exposure: Yes Alcohol intake: current Substance use: never Substance use type: does not use Do You Feel Safe in your Home?: Yes Lack of Transportation: No Lack of Food: Never True Current Housing: I Have Housing Concerned About Future Housing: No Difficulty Paying Gas/Electric Bills: No Difficulty Paying for Meds: No Currently Unemployed: No Education: Bachelor's Degree Difficulty w/ Childcare or Family Care: No Living arrangements: with family Occupation/Education: occupation 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 EYES: conjunctivae clear ENT: Mucous membranes moist. TMs pearly vee with normal light reflex bilaterally; no tragal tenderness. Oropharynx not erythematous without lesions. Tonsils not enlarged and without exudate. No drooling, no hoarseness, no trismus, uvula midline. No tripod positioning, hot potato voice, or soft palate swelling. NECK: Supple. No lymphadenopathy CHEST: Clear to auscultation, breath sounds equal. HEART: Regular rate and rhythm. No murmur heard. SKIN: Warm, dry NEURO: Alert and oriented x3. Course Course Emergency Course: Patient is aware of diagnosis, understands and agrees to treatment plan. Anticipatory guidance given. Patient agrees to follow-up as directed and is aware of reasons to seek care at the emergency department. Portions of this record may have been created with voice recognition software Level of Care: Express Care Visit Vital Signs Vital signs: Vital Signs Temperature 97.9 F 11/22/24 13:24 Pulse Rate 71 11/22/24 13:24 Respiratory Rate 16 11/22/24 13:24 Blood Pressure 114/70 11/22/24 13:24 Pulse Oximetry 100 11/22/24 13:24 Oxygen Delivery Room Air 11/22/24 13:24 Temperature 97.9 F 11/22/24 13:24 Pulse Rate 71 11/22/24 13:24 Respiratory Rate 16 11/22/24 13:24 Blood Pressure 114/70 11/22/24 13:24 Pulse Oximetry 100 11/22/24 13:24 Oxygen Delivery Room Air 11/22/24 13:24 MDM - URI/Sore Throat MDM Narrative Medical decision making narrative: neg flu, covid and strep result reviewed with pt. Advise supportive treatments. Patient is appropriate for outpatient treatment and follow-up. Differential Diagnosis Differential diagnosis: Likely upper respiratory infection, viral infection and pharyngitis Discharge Plan Discharge Clinical Impression: Upper respiratory infection Patient Disposition: Home, Self-Care Condition: Stable Instructions: Antibiotic Form, Upper Respiratory Infection (ED) Additional Instructions: Flu and COVID negative today. It may be too early to detect the virus, therefore we recommend retesting at home in 1-2 days Continue to follow general precautions: frequent handwashing, wear a mask, isolate/social distance, and avoid crowds if you have a fever. You must be fever free for 24 hours without the use of fever reducing medication (Tylenol/ibuprofen) before returning to work/school/crowds. Rapid strep swab was negative today You will be notified in a few days if the culture comes back positive for strep, and appropriate antibiotics will be called in at that time. if symptoms are due to a viral illness, it is not treated with antibiotics. Viral symptoms can be present for up to 10-14 days. Recommendations: Flonase spray and Zyrtec for sinus congestion Cough syrup may cause drowsiness; avoid driving or take it at night time. Tylenol every 8 hours as needed for pain/fever Soft foods, cool liquids, warm tea. Gargle with warm saltwater twice a day. Chloraseptic spray and throat lozenges. Rest and stay hydrated. --Follow up with your PCP --Go to the ER immediately if you cannot swallow your saliva, trouble breathing/wheezing, throat swelling, pain is persistent and severe Patient Language: Khmer Prescriptions: No Action loratadine [Allergy Relief (loratadine)] 10 mg tablet 10 mg PO DAILY Patient Comments: pulmonology-[facility] cholecalciferol (vitamin D3) 1,250 mcg (50,000 unit) tablet 1,250 mcg PO WEEKLY Dulera 50-5 mcg/actuation HFA aerosol inhaler 2 inh inhalation ONCE sulfamethoxazole-trimethoprim [Bactrim DS] 800-160 mg tablet 1 tablet PO Q12H Qty: 14 0RF metronidazole 500 mg tablet 500 mg PO Q8H 7 Days Qty: 21 0RF ibuprofen 800 mg tablet 800 mg PO TID PRN (Reason: pain) 7 Days Qty: 21 0RF acetaminophen 500 mg tablet 1,000 mg PO TID PRN (Reason: [place]) 7 Days Qty: 42 0RF Follow-up/Referrals: Bryan Pollock MD [Primary Care Provider] - Stand Alone Forms: Work/School Release IP Time of Disposition: 13:48
[2024-11-22 13:46] LABS: EDCOVIDSCREEN Negative (Negative); EDINFLUBSCREEN Negative (Negative); EDSTREPNEGPOS1 Negative (Negative)
--- OUTSIDE RECORDS SUMMARY | 2024-11-22 15:32 | XMS_ITS | Clinical Summary ---
Author Organization [employer] [address] [place] [id number] [place] [phone] Care Team Providers Care Woods Warden Name Role Phone Bryan Pollock MD Primary Care Provider [phone] Social History Tobacco Use Types Packs/Day Years [...] age to complete this topic Care Teams Woods Warden Relationship Specialty Start Date End Date Bryan Pollock MD [address] [place] [address] PCP - General Family Practice 12/23/22
--- OUTSIDE RECORDS SUMMARY | 2024-11-22 15:32 | XMS_ITS | Data Portability ---
Author Organization [facility] Address [address] [place] [address] [place] [address] Care Team Providers Care Nuclear Medicine Specialist Name Role Phone JUDY PASCUAL Primary Care Provider Assessment Encounter Date Assessment Date Assessment LastModified [...] Lab test, urine 2020 021 [email or web address] [facility], [address], [address], [place], [address], 10/23/2020 09:33:25 Referral plastic surgeon referral - Please call Alyssa to schedule an appt for a consult for breast reduction surgery. Never a smoker and bmi of 30.9. If you have any questions or require further informati on, please call me at [phone]. Thank you, TRISHA Sweeney 2020 021 FLO Dawkins MD, [address], [place], [address], 03/10/2022 05:01:38 Procedures None recorded. Surgeries None recorded. Imaging US, pelvis 2023 024 [email or web address] [facility], [address], [place], [address], 09/10/2024 11:39:44 US, transvagi nal 2023 024 FLO [facility], [address], [place], [address], 09/10/2024 18:12:22 Medication Orders Vivelle-D ot 0.05 mg/24 hr transderm al patch 2023 024 [id number], [address], [place], [place], [id number], 08/27/2024 11:38:32 Mirena 21 mcg/24 hr (up to 8 years) 52 mg intrauter ine device 2020 021 [email or web address] Not available 10/23/2020 09:33:25 Patient TargetsNo targets recorded. Patient InstructionsNo instructions recorded. Reason for Referral Plastic Surgeon Referral for Shoulder pain Please call Alyssa to schedule an appt for a consult for breast reduction surgery. Never a smoker and bmi of 30.9. If you have any questions or require further information, please call me at [phone]. Thank you, TRISHA Sweeney Referring Physician: Maren Hickey, TELEPRINTER, Encounter Date: 08/03/2021 Results Created Date Observation [...] prete d in light of all clini endy and labor atory findi ngs. This assay [...] perfo rmed by Ass[facility] i[facility] log[facility] [employer] [facility], d/b/a [facility], [address], [place] [address] , Maximino Ferrera ra, DO, Labor atory Direc tor. Not Available [facility] ([facility]) [address], [place], [address], 10/22/2020 02:10:55 10/20/19 21 10/21/2020 CT + NG DNA, PCR, unspe cifie d speci men neisseria gonorrhoeae, aptima NOT DETECT ED normal DNA testi ng perfo rmed by Trans cript ion Media judit Ampli ficat ion (TMA) These resul ts shoul d be inter prete d in light of all clini endy and labor atory findi ngs. This assay [...] perfo rmed by Assoc iated Patho logis [employer] [facility], d/b/a Aniceto roumaverick, [address], [place] [address] , Maximino Ferrera ra, DO, Labor atory Direc tor. Not Available [facility] ([facility]) [address], [place], [address], 10/22/2020 02:10:55 10/20/19 21 10/21/2020 CT + NG DNA, PCR, unspe cifie d speci men chlamydia trachomatis, aptima NOT DETECT ED normal DNA testi ng perfo rmed by Trans cript ion Media judit Ampli ficat ion (TMA) These resul ts shoul d be inter prete d in light of all clini endy and labor atory findi ngs. This assay [...] logis ts, LLC, d/b/a Path[facility] gonzalez, [address], [place] [address] , Maximino Ferrera ra, DO, Labor atory Direc tor. Not Available [facility] ([facility]) [address], [place], [address], 10/22/2020 02:10:55 10/20/19 21 10/20/2020 pregn keshawn test, urine HCG negati ve Not Available [facility] [address], [place], [address], 10/20/2020 10:46:23 08/03/20 21 08/03/2021 IMAGE GUIDE D PAP AND HPV REGAR DLESS image guided Pap, HPV regardless of Pap result SEE RESULT S BELOW CASE REPOR T: Cytol ogy Gynec ologi endy Repor t Case: [id number] Autho abdiaziz ngo Provi anaya: Severo Guardado Colle cted: 08/03 1622 HAND PACKER Order ing Locat ion: [place] Patho log[facility] [...] Thinp rep Imagi ng Syste m. CLINI ENDY INFOR MATIO N: Menst rual Statu s: LMP (if appli cable ): Clini endy Histo ry/Pr eviou s Pap: Type of Neopl padma (if appli cable ): Signi fican t Clini endy Findi ngs: Other Histo ry: Hormo marito [...] ng do not corre late with physi endy and/o r histo rical findi ngs, furth er inves tigat ion is recom janice d, as clini larisa warrana nted. Not Available [facility] (Lab) [address], [place], [address], 08/13/2021 13:50:23 01/23/2001/22/2021 MAMMO , scree eddy, bilat eral No observ ation record ed. [facility] [address], [place], [address], 01/25/2021 00:20:20 09/09/20 24 09/10/2024 US, pelvi s No observ ation record ed. [facility] [address], [place], [address], 09/10/2024 18:12:12 09/09/20 24 09/10/2024 US, trans vagin al No observ ation record ed. [facility] [address], [place], [address], 09/10/2024 18:12:22 09/09/20 24 09/09/2024 US, pelvi s No observ ation record ed. FLO [address], [place], [address], 09/10/2024 13:56:25 Result Notes None recorded. Problems Name Problem SNOMED Code Status Onset Date Resolution Date Notes Provider Name and Address Organization Details Recorded Time Speciali julius medical examinat ion Completed 201307/31/2021 Routine gynecolog ical examinati on;Practi ce ID: 0001 Brianna chacon [facility] 16:37:08 Screenin g for malignan t neoplasm of cervix Completed 201307/31/2021 Pap Smear;Pra ctice ID: 0001 Brianna chacon [facility] 16:37:01 Screenin g for malignan t neoplasm of rectum Completed 201307/31/2021 Screening for malignant neoplasms of the rectum;Pr actice ID: 0001 [facility] 16:37:03 Finding of pattern of menstrua l cycle [id number] Completed 201407/31/2021 Excessive and frequent menstruat ion with irregular cycle;Pra ctice ID: 0001 Brianna chacon [facility] 16:36:50 Pregnanc y test negative [id number] Completed 201407/31/2021 Encounter for test, result negative; Practice ID: 0001 [facility] 16:36:57 Insertio n of intraute rine contrace ptive device Completed 201507/31/2021 Encounter for insertion of intrauter ine contracep tive device;Pr actice ID: 0001 Brianna chacon [facility] 16:36:53 Sinusiti s 55391278 Completed 201507/31/2021 Chronic sinusitis , unspecifi ed;Practi ce ID: 0001 Brianna chacon [facility] 16:37:04 Contrace ptive sheath status 950687425 Completed 201507/31/2021 Encounter for routine checking of intrauter ine contracep dev;Pract ice ID: 0001 [facility] 16:36:[address] Concept Completed 201507/31/2021 Encntr for baseball hand sewer exam (general) (routine) w/o abn findings; Practice ID: 0001 Brianna chacon [facility] 16:37:07 Hemorrha ge of rectum and anus 239467728 Completed 201607/31/2021 Hemorrhag e of anus and rectum;Pr actice ID: 0001 Brianna chacon [facility] 16:36:52 Body mass index 25-29 - overweig ht 271836495 Completed 201607/31/2021 Body mass index (BMI) 26.0-26.9 , adult;Rec orded Elsewhere : No Locati on: [facility] So urce: EHR Chron ic: N Practic e ID: 0001 Bill able Time: 02:30:00 PM Brianna Dueñas [facility] 16:36:[address] Concept Completed 201807/31/2021 Encntr for general adult medical exam w/o abnormal findings; Recorded Elsewhere : No Locati on: [facility] So urce: EHR Chron ic: N Practic e ID: 0001 Bill able Time: 09:15:00 AM Brianna Dueñas [facility] 16:37:06 Removal of intraute rine device Completed 201107/31/2021 REMOVAL OF IUD;Recor ded Elsewhere : No Locati on: [facility] So urce: EHR Chron ic: N Practic e ID: 0001 Bill able Time: 03:45:00 PM Brianna Dueñas [facility] 16:36:58 Reproduc tive care manageme nt Completed 201107/31/2021 Unspecifi ed procreati ve managemen t;Recorde d Elsewhere : No Locati on: [facility] So urce: EHR Chron ic: Y Practic e ID: 0001 Bill able Time: 02:30:00 PM Brianna Dueñas [facility] 1 16:37:00 Irregula r intermen strual bleeding 06384944 Completed 201507/31/2021 Metrorrhana pandya;Recor ded Elsewhere : No Locati on: [facility] So urce: EHR Chron ic: N Practic e ID: 0001 Bill able Time: 01:30:00 PM Brianna chacon [facility] 1 16:36:55 Female infertil ity 5252698 Completed 201107/31/2021 Infertili ty, female, of unspecifi ed origin;Re corded Elsewhere : No Locati on: [facility] So urce: EHR Chron ic: N Practic e ID: 0001 Bill able Time: 09:30:00 AM Brianna Dueñas [facility] 16:36:48 Micturit ion finding Completed 201807/31/2021 Urinary incontine nce;Recor ded Elsewhere : No Locati on: [facility] So urce: EHR Chron ic: N Practic e ID: 0001 Bill able Time: 09:15:00 AM [facility] 16:36:44 Urinary tract infectio us disease [id number] Completed 201107/31/2021 Urinary Tract Infection ;Recorded Elsewhere : No Locati on: [facility] So urce: EHR Chron ic: N Practic e ID: 0001 Bill able Time: 09:45:00 AM [facility] 16:37:10 Acute lymphade nitis of upper limb 500280076 Completed 201507/31/2021 Acute lymphaden itis of axilla;Re corded Elsewhere : No Locati on: [facility] So urce: EHR Chron ic: N Practic e ID: 0001 Bill able Time: 01:30:00 PM Brianna chacon [facility] 16:36:41 Clinical finding Completed 201507/31/2021 Presence of (intraute rine) contracep tive device;Re corded Elsewhere : No Locati on: [facility] So urce: EHR Chron ic: N Practic e ID: 0001 Bill able Time: 03:45:00 PM Brianna [facility] 16:36:45 Problem Notes None recorded. Procedures Surgical History Date Name Laterality Status Provider Name and Address Organization Details Recorded Time 024 Date of Last Mammogram completed [facility] 08/27/2024 10:47:06 021 Date of Last Pap Smear completed [facility] 08/27/2024 10:47:44 021 IUD Insertion completed Maren Hickey [facility]- [address], [place], [address], [facility] 10/20/2020 12:31:05 019 Colonoscopy completed [facility] 07/31/2021 16:41:07 016 Colposcopy completed [facility] 07/31/2021 16:43:16 005 Colonoscopy completed [facility] 07/31/2021 16:40:[address] [facility] 08/03/2021 14:57:37 Hysteroscopy completed Karrie Cook [facility] 07/07/2020 11:00:35 loop electrosurgical excision procedure completed Karrie Cook [facility] 07/07/2020 11:00:40 Imaging Results Imaging Date Name Status LastModified by Organization Details LastModified Time 01/22/2021 MAMMO, screening, bilateral completed [facility] [address], [place], [address], 01/25/2021 00:20:20 09/10/2024 US, pelvis completed sandra [facility] [address], [place], [address], 09/10/2024 18:12:12 09/10/2024 US, transvaginal completed sandra Salmeronerick e [address], [place], [address], 09/10/2024 18:12:22 09/09/2024 [facility] [address], [place], [address], 09/10/2024 13:56:25 Procedure Notes None recorded. Medical Equipment None Reported. Allergies Allergen ID Allergen Name Allergen Category Reaction Reaction Severity Criticality Documentation Date Start Date Code Code System Note Provider Name and Address Organization Details Recorded Time 2235 Product containin g penicilli n (product) medicatio n Not available Not available Not available 07/07/2020 10930 8001 PHILIPPE Cook [facility] 0 10:49:55 Medications Name Sig Start [...] ed Elsewher e: Yes Loca tion: [facility] odify By: nora ryan DateTime : [...] Prescrib ed Elsewher e: No Locat ion: [facility] odify By: brijesh ryan DateTime : 05/18/20 12 09:45:00 AM Not Available Not Available Not Available Celebrex 200 mg capsule 200 mg PO the night before and 400 mg PO morning of procedur e 02/19 completed Prescrib ed Elsewher e: No Locat ion: [facility] odify By: nora ryan DateTime : 09/22/20 15 11:28:27 AM Not Available Not Available Not Available alprazola m 0.5 mg tablet TAKE 1 TABLET BY MOUTH TWICE DAILY NEEDED FOR ANXIETY 08/27 completed Not Available Not Available Not Available Cipro 500 mg tablet take 1 tablet by oral route every 12 hours 02/27 completed Prescrib ed Elsewher e: No Locat ion: [facility] odify By: nora ryan DateTime : 02/22/20 16 10:36:38 AM Not Available Not Available Not Available butalbita l-aspirin -caffeine 50 mg-325 mg-40 mg capsule take 1 capsule by oral route every 4 hours as needed not to exceed 6 capsules per 24hrs 02/27 completed Prescrib ed Elsewher e: Yes Loca tion: [facility] odify By: nora ryan DateTime : 02/20/20 [...] ed Elsewher e: No Locat ion: [facility] odify By: sony gallo DateTime : 05/18/20 12 09:45:00 AM Not Available Not Available Not Available hydrocort isone 2.5 % topical cream 07/07 completed Not Available Not Available Not Available diazepam 10 mg tablet 10 mg PO 1 hour before the procedur e 02/19 completed Prescrib ed Elsewher e: No Locat ion: [facility] odify By: nora ryan DateTime : [...] Prescrib ed Elsewher e: No Locat ion: [facility] odify By: nora ryan DateTime : 03/05/20 17 09:19:13 AM Not Available Not Available Not Available ketoconaz ole 2 % topical cream APPLY TO THE AFFECTED AREA TWICE DAILY 08/27 completed Not Available Not Available Not Available [place] 5 mg-325 mg tablet 2 tabs PO 2 hours before the procedur e 02/19 completed Prescrib ed Elsewher e: No Locat ion: [facility] odify By: nora ryan DateTime : [...] Prescrib ed Elsewher e: No Locat ion: [facility] odify By: brijesh Silver ncounter DateTime [...] Prescrib ed Elsewher e: No Locat ion: [facility] odify By: brijesh Silver ncounter DateTime : 05/29/20 12 12:05:26 PM Not Available Not Available Not Available metoprolo l tartrate 25 mg tablet 08/03 completed Not Available Not Available Not Available Canasa 1,000 mg rectal supposito ry insert 1 supposit ory by rectal route every day at bedtime 10/20 completed Prescrib ed Elsewher e: Yes Loca tion: [facility] odify By: geoff Silver ncounter DateTime : 03/05/20 18 01:00:00 PM Not Available Not Available Not Available Vitamin D active Not Available Not Baylee ilable Not Available Vitamin D3 10 mcg (400 unit) capsule 12/14 completed Prescrib ed Elsewher e: Yes Loca tion: [facility] odify By: nora Silver ncounter DateTime : 09/09/20 17 08:30:00 AM Not Available Not Available Not Available Treximet 85 mg-500 mg tablet 03/05 completed Prescrib ed Elsewher e: Yes Loca tion: [facility] odify By: geoff ryan DateTime : [...] Prescrib ed Elsewher e: No Locat ion: [facility] odify By: colleen berry DateTime : 09/09/20 17 08:30:00 AM Not [...] Updated DateTime 12/14/2020 160.02 cm 30.3 kg/m2 93746.3 g 118 mm[Hg] 77 mm[Hg] Karrie Cook [facility] 15:06:01 Date Recorded Body height Body mass index (BMI) Body weight Systolic blood pressure Diastolic blood pressure Provider Name and Address Organization Details Last Updated DateTime 08/03/2021 157.48 cm 30.9 kg/m2 99429.11 g 130 mm[Hg] 76 mm[Hg] Brianna Dueñas [facility] 14:57:19 Date Recorded Body height Body mass index (BMI) Body weight Systolic blood pressure Diastolic blood pressure Provider Name and Address Organization Details Last Updated DateTime 08/27/2024 157.48 cm 29.6 kg/m2 27268.96 g 105 mm[Hg] 70 mm[Hg] Kianna Bush [facility] 4 10:54:43 Date Recorded Body height Body mass index (BMI) Body weight Systolic blood pressure Diastolic blood pressure Provider Name and Address Organization Details Last Updated DateTime 10/20/2020 160.02 cm 30.3 kg/m2 83411.58 g 101 mm[Hg] 71 mm[Hg] Karrie Cook [facility] 1 10:44:13 Social History Question Answer Notes LastModified by Organizat ion Details LastModified Time Tobacco Smoking Status Never Smoker Brianna Dueñas ines [facility] 08/03/2021 14:57:34 Do You Have [...] Or The Highest Degree You Have Received? 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 [id number] Information not available 12/14/2020 Do You Use [...] 2019 10:59:50 Maternal Grandmother Deep venous thrombosis [email or web address] Not available 08/27 10:44:59 Maternal Grandmother Disorder of thyroid gland Not available 2019 11:00:27 Sister Infertile [email or web address] Not availab le 08/27/2024 10:44:59 Sister Cyst of ovary [email or web address] Not available 2023 10:44:59 Mother Cyst of ovary [email or web address] Not available 2023 10:44:59 Medical History Condition [...] SNOMED-CT Code Diagnosis ICD10 Code Diagnosis Note [id number] [place]aren Hickey [place] [address] [address] 07/07/2020 10:49:10 07/07/2020 12:31:42 Gynecologic examination 49671029 Z01.419 Suggested Calcium with Vitamin D 1200-1500m g daily. Patient advised to get an annual flu shot in the fall and she could obtain at [facility] or [facility] take care clinic. Also to obtain TDap [...] Mirena IUD 11/02/2015 placed. Climacteric flushing 427 224106 N95.1 Having some perimenopa usal/menop ausal sx's She has mirena IUD. Aware that FSH/LH results might be skewed by this device but we can get an idea if menopausal changes are related to her complaints . [id number] Maren Hickey , [facility] [address] [address] 10/20/2020 10:28:47 10/20/2020 12:35:49 Contraception care management 410204311 Z30.9 test negative 069253910 Z32.02 Insertion of intrauterine contraceptive device 51429506 Z30.430 Patient is here for IUD Removal/re [...] verbalized understand ing. Removal of intrauterine device 15067779 Z30.432 We discussed the timing of the [...] ing of all the above instructio ns. [id number] Maren Hickey [facility] [address],[place] [address] 12/14/2020 15:01:02 12/14/2020 15:43:56 IUD check 277955999 Z30.431 Patient is here today for 4wk IUD string check. She reports she is doing well after placement of this device. She is eating/dri nking/slee ping well. She has no adverse side effects from use of this device. She wishes to continue this therapy. Additional precaution marcelino measures were taken to minimize potential exposure to the Covid-19 virus during this patient s visit, including available hand internal sales engineer upon arrive, temperatur e check and being asked a series of screening questions. All staff wore face coverings during this encounter, as well as provided additional cleaning and sanitizing of all surfaces, including counter-to ps, pens, chairs, door handles, light switches, etc, prior to and following the patient s visit. Time spent in visit is a total of 15 mins with at least 50% of visit consisting of counseling and review of plan of care. [id number] Maren Hickey [facility] [address],[place] [address] 08/03/2021 14:45:59 08/03/2021 15:46:32 Gynecologic examination 88318106 Z01.419 Suggested Calcium with Vitamin D 1200-1500m g daily. Patient advised to get an annual flu shot in the fall and she could obtain at [facility] or [facility] care clinic. Also to obtain TDap vaccinatio [...] Normal pap/hpv hx Mirena IUD 11/02/2015 placed.Dre mo orderedCol on-PCP managed Shoulder pain 59900092 M 25.519 G89.29 Requested referral for consult breast reduction. [id number] NIKIA STUBBS MD [facility] [address] [address] 08/27/2024 10:44:07 08/27/2024 11:39:18 Hormone replacement therapy 546510631 Z79.890 - patient reports worsening menopausal symptoms [...] for med check Abnormal u terine bleeding 2249802194 9100 N93.9 - patient reports two day long episodes of bleeding since May- Mirena IUD in place, due out 10/2028- IUD strings visualized on exam- will order pelvic US to ensure correct placement [id number] Dona Rose [facility] [address] [address] 09/09/2024 17:32:59 09/10/2024 11:39:44 Abnormal uterine bleeding 4910362725 9100 N93.9 Health Concerns Section Related Observation LastModified by Organization Detai ls LastModified Time None Recorded Concern Status LastModified by Organization Details LastModified Time None Recorded Advance Directives Directive N: Payers Encounter Date Sequence Insurance Name Policy Number Policy Castro Covered Member ID Castro Member ID Guarantor Name 10/20/2020 1 [facility] [id number] Alyssa L Rodo [id number] Alyssa L Rodo 12/14/2020 1 [facility] [id number] Alyssa L Rodo [id number] Alyssa L Rodo 08/03/2021 1 [facility] [id number] Alyssa L Rodo [id number] Alyssa L Rodo 08/27/2024 1 [facility] [id number] Alyssa L Rodo [id number] Alyssa L Rodo 09/09/2024 1 [facility] [id number] Alyssa L Rodo [id number] Alyssa L Rodo Notes Date Note Type Note Provider Name and Address Organization Details Recorded Time 10/20/2020 text/html Patient presents for IUD insertion. RINA Perez [address], [place], [address], [facility] 10/20/2020 12:32:49 12/14/2020 text/html Patient is here today for 4wk IUD string check. She reports she is doing well after placement of this device. She is eating/drinking/sl eeping well. She has no adverse side effects from use of this device. She wishes to continue this therapy. RINA Perez [address], [place], [address], [facility] 12/14/2020 15:41:39 08/03/2021 text/html Annual GYNReport [...] to date on colonoscopy screening Maren Hickey [facility] [address], [place], [address], [facility] 08/03/2021 15:15:46 08/27/2024 text/html Patient presents [...] found no etiology. NIKIA STUBBS MD [address], [place], [address], [facility] 08/27/2024 11:38:39 OBGyn Episode Ob Episode Information Episode Created Date Number of Fetuses Patient Bloodtype Patient rh Status Prepregnancy Weight lbs Domestic Partner Domestic Partner Phone Father Name Well Testing Operator Status 07/07/20 20 1 CLOSED Fetus Data [...] Domestic Partner Domestic Partner Phone Father Name Well Testing Operator Status 07/07/20 20 1 CLOSED Fetus Data [...]
--- OUTSIDE RECORDS SUMMARY | 2024-11-22 15:32 | XMS_ITS | Encounter Summary ---
Author Organization [facility] Address [address] [place] [address] Care Team Providers Care Weaving Supervisor Name Role Phone Unavailable Primary Care Provider Unavailabl e Encounter Details Date Type Department Care Team (Late st Contact Info) Description 02/07/2022 Lab Requisition [facility] DermPath Lab [address] [place] [phone] Arnol Hicks MD [address] [place] [address] Social History Tobacco Use Types Packs/Day [...] 3:33 AM CDT) Case Report Dermatopathology Report Case: [id number] Authorizing Provider: Arnol Hicks MD Collected: 02/06/2022 03:33 AM Ordering Location: [facility] DermPath Lab Received: 02/07/2022 01:48 PM Pathologist: Ren Martins MD Specimen: Skin, right upper chest 2 6:53 PM CDT DERMATOPATHOLOGY LABORATORY Final Diagnosis Specimen A. SKIN, right upper chest: LICHEN PLANUS-LIKE KERATOSIS (BENIGN LICHENOID KERATOSIS) (L82.1) 2 6:53 PM CDT DERMATOPATHOLOGY LABORATORY Clinical History R/O LPLK vs BCC vs SCC. 2 6:53 PM CDT DERMATOPATHOLOGY LABORATORY Gross Description Specimen A: Received is one formalin filled container labeled with the patient's name and designated right upper chest. The specimen consists of a shave biopsy measuring 5p0l7ws. Jar 0. 2 6:53 PM CDT DERMATOPATHOLOGY [...] characteristic determined by the Dermatopathology Laboratory at [facility], directed by Dr. Suzette Martisn. These tests need not be, and therefore are not, approved by the [place] Food and Drug Administration. The tests are used for clinical purposes. Billing Codes Specimen Charges Stain Charges 30365 1 2 6:53 PM CDT DERMATOPATHOLOGY LABORATORY Embedded Images 2 6:53 PM CDT DERMATOPATHOLOGY LABORATORY Pathology/Cytolo gy TISSUE SPECIMEN FROM SKIN / Unknown 02/06/2022 3:33 AM CDT 02/07/2022 1:48 PM CDT Arnol Hicks MD LAB - PATHOLOGY/CYTO LOGY ORDERABLES DERMATOPATHOLOGY LABORATORY [facility] - Department of Dermatology [address], [address] [phone] documented in this encounter Visit Diagnoses Not on filedocumented in this encounter
--- OUTSIDE RECORDS SUMMARY | 2024-11-22 15:32 | XMS_ITS | Clinical Summary ---
Author Organization [facility] Address [address] [place] [address] Care Team Providers Care Metallurgical Engineering Teacher Name Role Phone Bryan Pollock MD Primary Care Provider + [phone] Lizandro Colón Unavailable Unavailable Allergies Active Allergy [...] we would recommend that she follow-up with limerock tower loader and consider a CT scan of the [...] (12/04/2018): Added automatically from request for surgery [id number] Hematochezia 03/13/2018 Immunizations Immunization Administration Dates Next Due Influenza, Trivalent, Cell [...] on file Legal Sex Female 2:03 AM SUPERVISOR STEEL DIVISION Gender Identity Female 01/31/2021 3:51 PM CDT Sexual Orientation Straight 01/31/2021 3: 51 PM CDT 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 on file Not on file Not on file Obstetrics History Last Filed Vital Signs Vital Sign Reading Time Taken Comments Blood Pressure 101/72 07/16/2024 8:43 AM CDT Pulse 84 07/16/2024 8:43 AM CDT Temperature 36.7 C (98 F) 07/16/2024 8:43 AM CDT Respiratory Rate 18 [...] 08/10/2024, 07/21/2023 Medical Devices Implanted Type Area Ceramic Mold Designer Device Identifier Shelf Expiration Date Model / Serial / Lot Mirena Iud Vagina Procedures Procedure Name Priority Date/Time Associated Diagnosis Comments COLONOSCOPY 11/13/2021 1:25 PM SUPERVISOR STEEL DIVISION from Last 3 Months or Most Recently Relevant to Health Maintenance Results * COLONOSCOPY (11/13/2021 1:25 PM SUPERVISOR STEEL DIVISION) Anatomical Region Laterality Modality Other Narrative Procedure Note Dat Meeks MD PhD - 11/13/2021 1:25 PM CST ENDOSCOPY LAB Patient Name: Disha Koehler Procedure Date: 11/13/2021 1:25 PM Date of : 1970 Admit Type: Outpatient Age: 50 Gender: Female Attending MD: Dat Meeks MD,PHD Room: [facility] ENDOSCOPY ROOM 02 Note Status: [...] The scope was passed under direct vision.The [id number] was introduced through the anusand advanced to [...] business hours - Please call theNurse Coordinator: [phone]. After hours, evening, nights, weekends and holidays- Please call the hospital fabric machine operator at and ask for the GI fellow automation manager. Attending Participation: I personally performed the entire procedure. Electronically signed by Dat Meeks MD. Dat Meeks MD, PHD 11/13/2021 1:52:18 PM Number of Addenda: 0 Note Initiated On: 11/13/2021 1:25 PM us Dat Meeks MD PhD ENDOSCOPY PROCEDURES Cande l Result from Last 3 Months or Most Recently Relevant to Health Maintenance Insurance [facility] [employer] [facility] [employer]ES Advance Directives For more information, please contact: [phone] * Full Code (Latest Code Status on File) Date Activated Date Inactivated Comments 11/13/2021 11:40 AM 11/13/2021 6:40 PM * Full Code Date Activated Date Inactivated Comments 01/12/2019 9:25 AM 01/12/2019 5:31 PM Care Teams Metallurgical Engineering Teacher Relationship Specialty Start Date End Date Bryan Pollock MD PCP - General 10/30/17 Lizandro Colón 06/11/18
--- OUTSIDE RECORDS SUMMARY | 2024-11-22 15:32 | XMS_ITS | Encounter Summary ---
Author Organization [facility] Address [address] [place] [address] Phone Care Team Providers Care Component Inspector Name Role Phone Bryan Pollock MD Primary Care Provider + [phone] Lizandro Colón Unavailable Unavailable Encounter Details Date [...] on file Legal Sex Female 2:03 AM LEVEL VIAL INSIDE GRINDER Gender Identity Female 01/31/2021 3:51 PM CDT [...] on filedocumented in this encounter Care Teams Component Inspector Relationship Specialty Start Date End Date Bryan Pollock MD PCP - General 10/30/17 Lizandro Colón 06/11/18 documented as of this encounter
--- OUTSIDE RECORDS SUMMARY | 2024-11-22 15:32 | XMS_ITS | Encounter Summary ---
Author Organization [facility] Address [address] [place] [place] [address] Care Team Providers Care Video Library Assistant Name Role Phone Unavailable Primary Care Provider Unavailabl e Encounter Details Date Type Department Care Team (Late st Contact Info) Description 01/22/2023 Lab Requisition [facility] DermPath Lab [address] [place] [phone] Arnol Hicks MD [address] [place] [address] Social History Tobacco Use Types [...] 12:00 AM CDT) Case Report Dermatopathology Report Case: [id number] Authorizing Provider: Arnol Hicks MD Collected: 01/21/2023 12:00 AM Ordering Location: [facility] DermPath Lab Received: 01/22/2023 02:04 PM Pathologist: Ren Martins MD Specimen: Skin, posterior lateral right shoulder 6:33 PM CDT DERMATOPATHOLOGY LABORATORY Final Diagnosis Specimen A. SKIN, posterior lateral right shoulder: SEBORRHEIC KERATOSIS, IRRITATED AND INFLAMED (L82.0) 6:33 PM CDT DERMATOPATHOLOGY LABORATORY Clinical History R/O SCC, ISK, BCC 3 6:33 PM CDT DERMATOPATHOLOGY LABORATORY Gross Description Specimen A: Received is one formalin filled container labeled with the patient's name and designated posterior lateral right shoulder. The specimen consists of a shave biopsy measuring [id number] mm. Jar 0. 3 6:33 PM CDT [...] determined by the Dermatopathology Laboratory at [facility], directed by Dr. Suzette Martins. These tests need not be, and therefore are not, approved by the [place] Food and Drug Administration. The tests are used for clinical purposes. Billing Codes Specimen Charges Stain Charges 28504 1 3 6:33 PM CDT DERMATOPATHOLOGY LABORATORY Embedded Images 3 6:33 PM CDT DERMATOPATHOLOGY LABORATORY Pathology/Cytolog y TISSUE SPECIMEN FROM SKIN / Unknown 01/21/2023 01/22/2023 2:04 PM CDT Arnol Hicks MD LAB - PATHOLOGY/CYTO LOGY ORDERABLES DERMATOPATHOLOGY LABORATORY [facility] - Department of Dermatology [address], [address] [phone] documented in this encounter Visit Diagnoses Not on filedocumented in this encounter
--- OUTSIDE RECORDS SUMMARY | 2024-11-22 15:32 | XMS_ITS | Patient Health Summary ---
Author Organization [facility] Address [address] [place] [address] Care Team Providers Care School Athletic Director Name Role Phone Unavailable Primary Care Provider Unavailabl e Note from [facility],non-owned Affiliates and Associated Physician Practices is amultiple site organization consisting of ambulatory clinics and hospital sitesin [place], [place], [place] and [place]. This disclosure is being madepursuant to the Care Everywhere program and may not contain all information available regarding this patient. Last updated 18.[facility] Social History Tobacco Use Types Packs/Day Years Used Date Smoking Tobacco: Never Assessed Sex and Gender Information Value Date Recorded Sex Assigned at Not on file Gender Identity Not on file Sexual Orientation Not on file Procedures * DERMATOPATHOLOGY(Performed 08/12/2023) * DERMATOPATHOLOGY(Performed 01/21/2023) * DERMATOPATHOLOGY(Performed 02/06/2022) * DERMATOPATHOLOGY(Performed 10/10/2021) * DERMATOPATHOLOGY(Performed 06/22/2019) * DERMATOPATHOLOGY(Performed 06/21/2015) Results * DERMATOPATHOLOGY (08/12/2023 3:33 AM RAMP SERVICE EMPLOYEE) Only the most recent of6 resultswithin the time period is included. Case Report Dermatopathology Report Case: [id number] Authorizing Provider: Arnol Hicks MD Collected: 08/12/2023 03:33 AM Ordering Location: [facility] DermPath Lab Received: 08/13/2023 03:18 PM Pathologist: Josie Wallace MD Specimens: A) - Skin, right upper chest below clavicle B) - Skin, left med breast sup 3 1:47 PM RAMP SERVICE EMPLOYEE DERMATOPATHOLOGY LABORATORY Final Diagnosis Specimen A. SKIN, right upper chest below clavicle: LICHEN PLANUS-LIKE KERATOSIS (BENIGN LICHENOID KERATOSIS) , END STAGE (L82.1) Specimen B. SKIN, left med breast sup: LICHEN PLANUS-LIKE KERATOSIS (BENIGN LICHENOID KERATOSIS) (L82.1) 3 1:47 PM [facility] DERMATOPATHOLOGY LABORATORY Clinical History R/O SCC vs BCC vs LPLK 3 1:47 PM [facility] DERMATOPATHOLOGY LABORATORY Gross Description Specimen [...] shave biopsy measuring 9x6x1 mm. Jar 0. 1:47 PM [facility] DERMATOPATHOLOGY LABORATORY Microscopic Description Specimen A. SKIN, right upper chest below clavicle: The epidermis is mildly acanthotic. There is a patchy lichenoid infiltrate with vacuolar changes of basilar keratinocytes and scattered necrotic keratinocytes. Specimen B. SKIN, left med breast sup: The epidermis is mildly acanthotic. There is a lichenoid infiltrate with vacuolar changes of basilar keratinocytes and scattered necrotic keratinocytes. 1:47 PM RAMP SERVICE EMPLOYEE DERMATOPATHOLOGY LABORATORY Disclaimer An external and internal positive and negative controls are appropriate for the histochemical, immunohistochemical and immunofluorescence stain(s) in this case (if any), except where stated explicitly. The performance characteristics of the stain(s) cited in this report were developed and its performance characteristic determined by the Dermatopathology Laboratory at [facility], directed by Dr. Suzette Martins. These tests need not be, and therefore are not, approved by the [place] Food and Drug Administration. The tests are used for clinical purposes. Billing Codes Specimen Charges Stain Charges 28714 11388 1 1 3 1:47 PM RAMP SERVICE EMPLOYEE DERMATOPATHOLOGY LABORATORY Embedded Images 3 1:47 PM RAMP SERVICE EMPLOYEE DERMATOPATHOLOGY LABORATORY Pathology/Cytology TISSUE SPECIMEN FROM SKIN / Unknown 08/12/2023 3:33 AM RAMP SERVICE EMPLOYEE 08/13/2023 3:18 PM RAMP SERVICE EMPLOYEE Miscellaneous samples (specimen) TISSUE SPECIMEN FROM SKIN / Unknown 08/12/2023 3:33 AM RAMP SERVICE EMPLOYEE 08/13/2023 3:18 PM RAMP SERVICE EMPLOYEE Arnol Hicks MD LAB - PATHOLOGY/CYTO LOGY ORDERABLES DERMATOPATHOLOGY LABORATORY [facility] - Department of Dermatology [facility] [address] [place] [address], [address] [phone]
--- OUTSIDE RECORDS SUMMARY | 2024-11-22 15:32 | XMS_ITS | Referral Summary ---
Author Organization [facility] Address [address] [place] [address] Care Team Providers Care Stone Mason Name Role Phone Bryan Pollock MD Primary Care Provider + [phone] Lizandro Colón Unavailable Unavailable Allergies Active Allergy [...] we would recommend that she follow-up with airline manager and consider a CT scan of the [...] (12/04/2018): Added automatically from request for surgery [id number] Hematochezia 03/13/2018 Immunizations Immunization Administration Dates Next [...] on file Legal Sex Female 2:03 AM SKI INSTRUCTOR Gender Identity Female 01/31/2021 3:51 PM CDT Sexual Orientation Straight 01/31/2021 3: 51 PM CDT 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 file Not on file Not [...] on file Medical Devices Implanted Type Area Spider Assembler Device Identifier Shelf Expiration Date Model / Serial / Lot Mirena Iud Vagina Procedures Procedure Name Priority Date/Time Associated Diagnosis Comments COLONOSCOPY 11/13/2021 1:25 PM SKI INSTRUCTOR from Last 3 Months or Most Recently Relevant to Health Maintenance Results * COLONOSCOPY (11/13/2021 1:25 PM SKI INSTRUCTOR) Anatomical Region Laterality Modality Other Narrative Procedure Note Dat Meeks MD PhD - 11/13/2021 1:25 PM CST ENDOSCOPY LAB Patient Name: Disha Koehler Procedure Date: 11/13/2021 1:25 PM Date of : 1970 Admit Type: Outpatient Age: 50 Gender: Female Attending MD: Dat Meeks MD,PHD Room: [facility] ENDOSCOPY ROOM 02 Note Status: Finalized Procedure: [...] The scope was passed under direct vision.The [id number] was introduced through the anusand advanced to [...] During normal business hours - [facility] [place]: [phone]. After hours, evening, nights, weekends and holidays- Please call the hospital tube cleaning operator at and ask for the GI fellow media production manager. Attending Participation: I personally performed the entire procedure. Electronically signed by Dat Meeks MD. Dat Meeks MD, PHD 11/13/2021 1:52:18 PM Number of Addenda: 0 Note Initiated On: 11/13/2021 1:25 PM Dat Meeks MD PhD ENDOSCOPY PROCEDURES Cande l Result from Last 3 Months or Most Recently Relevant to Health Maintenance Insurance [facility] [employer] [employer] [place] [address] [facility] CHOICE PLUS [employer]PLOYEES Advance Directives For more information, please contact: [phone] * Full Code (Latest Code Status on File) Date Activated Date Inactivated Comments 11/13/2021 11:40 AM 11/13/2021 6:40 PM * Full Code Date Activated Date Inactivated Comments 01/12/2019 9:25 AM 01/12/2019 5:31 PM Care Teams Stone Mason Relationship Specialty Start Date End Date Bryan Pollock MD PCP - General 10/30/17 Lizandro Colón 06/11/18
--- OUTSIDE RECORDS SUMMARY | 2024-11-22 15:32 | XMS_ITS | Referral Summary ---
Author Organization [facility] Address [address] [place] [place] [address] Care Team Providers Care Lmsw Name Role Phone Unavailable Primary Care Provider Unavailabl e Source Comments [facility],non-owned Affiliates and Associated Physician Practices is amultiple site organization consisting of ambulatory clinics and hospital sitesin [place], [place], [place] and [place]. This disclosure is being madepursuant to the Care Everywhere program and may not contain all information available regarding this patient. Last updated 18.[facility] Social History Tobacco Use Types Packs/Day Years Used Date Smoking Tobacco: Never Assessed Sex and Gender Information Value Date Recorded Sex Assigned at Not on file Gender Identity Not on file Sexual Orientation Not on file Plan of Treatment Not on file Alyssa Koehler Personal/Famil y Self 1970 ([place]) [address] [place], [place] [address] Alyssa Koehler Personal/Famil y Self 1970 ([place]) [address] [place] [address]
--- OUTSIDE RECORDS SUMMARY | 2024-11-22 15:32 | XMS_ITS | Clinical Summary ---
Author Organization [facility] Address [address] [address] Care Team Providers Care Loft Worker Pile Driving Name Role Phone Unavailable Primary Care Provider Unavailabl e Source Comments [facility],non-owned Affiliates and Associated Physician Practices is amultiple site organization consisting of ambulatory clinics and hospital sitesin [place]. This disclosure is being madepursuant to the Care Everywhere program and may not contain all information available regarding this patient. Last updated 18.[facility] [place] Social History Tobacco Use Types Packs/Day Years [...]
--- OUTSIDE RECORDS SUMMARY | 2024-11-22 15:32 | XMS_ITS | Encounter Summary ---
Author Organization [facility] Address [address] [place] [address] Care Team Providers Care Pear Picker Name Role Phone Unavailable Primary Care Provider Unavailabl e Encounter Details Date Type Department Care Team (Late st Contact Info) Description 08/13/2023 Lab Requisition [facility] - DermPath Lab [address] [place] [phone] Arnol Hicks MD [address] [place] [id number] Social History Tobacco Use Types Packs/Day Years [...] Diagnosis Comments DERMATOPATHOLOGY Routine 08/12/2023 3:33 AM BICYCLE TAXI DRIVER documented in this encounter Results * DERMATOPATHOLOGY (08/12/2023 3:33 AM BICYCLE TAXI DRIVER) Case Report Dermatopathology Report Case: [id number] Authorizing Provider: Arnol Hicks MD Collected: 08/12/2023 03:33 AM Ordering Location: [facility] DermPath Lab Received: 08/13/2023 03:18 PM Pathologist: Josie Wallace MD Specimens: A) - Skin, right upper chest below clavicle B) - Skin, left med breast sup 3 1:47 PM BICYCLE TAXI DRIVER DERMATOPATHOLOGY LABORATORY Final Diagnosis Specimen A. SKIN, right upper chest below clavicle: LICHEN PLANUS-LIKE KERATOSIS (BENIGN LICHENOID KERATOSIS) , END STAGE (L82.1) Specimen B. SKIN, left med breast sup: LICHEN PLANUS-LIKE KERATOSIS (BENIGN LICHENOID KERATOSIS) (L82.1) 3 1:47 PM [facility] DERMATOPATHOLOGY LABORATORY Clinical History R/O SCC vs BCC vs LPLK 3 1:47 PM [facility] DERMATOPATHOLOGY LABORATORY Gross Description Specimen A: Received [...] 9x6x1 mm. Jar 0. 3 1:47 PM [facility] DERMATOPATHOLOGY LABORATORY Microscopic Description Specimen A. SKIN, right upper chest below clavicle: The epidermis is mildly acanthotic. There is a patchy lichenoid infiltrate with vacuolar changes of basilar keratinocytes and scattered necrotic keratinocytes. Specimen B. SKIN, left med breast sup: The epidermis is mildly acanthotic. There is a lichenoid infiltrate with vacuolar changes of basilar keratinocytes and scattered necrotic keratinocytes. 3 1:47 PM [facility] DERMATOPATHOLOGY LABORATORY Disclaimer An external and internal [...] purposes. Billing Codes Specimen Charges Stain Charges 79405 74577 1 1 3 1:47 PM BICYCLE TAXI DRIVER DERMATOPATHOLOGY LABORATORY Embedded Images 3 1:47 PM [facility] DERMATOPATHOLOGY LABORATORY Pathology/Cytology TISSUE SPECIMEN FROM SKIN / Unknown 08/12/2023 3:33 AM BICYCLE TAXI DRIVER 08/13/2023 3:18 PM BICYCLE TAXI DRIVER Miscellaneous samples (specimen) TISSUE SPECIMEN FROM SKIN / Unknown 08/12/2023 3:33 AM BICYCLE TAXI DRIVER 08/13/2023 3:18 PM BICYCLE TAXI DRIVER Arnol Hicks MD LAB - PATHOLOGY/CYTO LOGY ORDERABLES DERMATOPATHOLOGY LABORATORY [facility] - Department of Dermatology [facility] Medicine [address] [place] [address], [address] [phone] documented in this encounter Visit Diagnoses Not on filedocumented in this encounter
--- OUTSIDE RECORDS SUMMARY | 2024-11-22 15:32 | XMS_ITS | Encounter Summary ---
Author Organization [facility] Address [address] [place] [address] Care Team Providers Care Slubber Frame Changer Name Role Phone Unavailable Primary Care Provider Unavailabl e Encounter Details Date Type Department Care Team (Late st Contact Info) Description 10/12/2021 Lab Requisition [facility] DermPath Lab [address] [place] [phone] Arnol Hicks MD [address] [place] [address] Social History Tobacco Use Types [...] Comments DERMATOPATHOLOGY Routine 10/10/2021 12:0 0 AM MANAGER LAW documented in this encounter Results * DERMATOPATHOLOGY (10/10/2021 12:00 AM MANAGER LAW) Case Report Dermatopathology Report Case: [id number] Authorizing Provider: Arnol Hicks MD Collected: 10/10/2021 12:00 AM Ordering Location: [facility] DermPath Lab Received: 10/12/2021 12:31 PM Pathologist: Jael Vega MD Specimen: Skin, right lateral abdomen 12:09 PM MANAGER LAW DERMATOPATHOLOGY LABORATORY Final Diagnosis Specimen A. SKIN, right lateral abdomen: LENTIGINOUS MELANOCYTIC NEVUS, JUNCTIONAL TYPE, IRRITATED (JUNCTIONAL MELANOCYTIC NEVUS WITH ARCHITECTURAL DISORDER) (D22.5) POST-INFLAMMATORY PIGMENT ALTERATION (L81.9) NOT PRESENT AT SAMPLED MARGIN 12:09 PM MANAGER LAW DERMATOPATHOLOGY LABORATORY Clinical History R/O dysplasia nevus. Check margins. 12:09 PM [facility] DERMATOPATHOLOGY LABORATORY Gross Description Specimen A: Received is one formalin filled container labeled with the patients name and designated right lateral abdomen. The specimen consists of a shave removal measuring 3v7j0zh. The margin is inked green. Jar 0. 12:09 PM [facility] DERMATOPATHOLOGY LABORATORY Microscopic Description Specimen A. SKIN, [...] at the sampled margin of the specimen. 12:09 PM [facility] DERMATOPATHOLOGY LABORATORY Disclaimer An external and internal positive and negative controls are appropriate for the histochemical, immunohistochemical and immunofluorescence stain(s) in this case (if any), except where stated explicitly. The performance characteristics of the stain(s) cited in this report were developed and its performance characteristic determined by the Dermatopathology Laboratory at [facility], directed by Dr. Suzette Martins. These tests need not be, and therefore are not, approved by the [place] Food and Drug Administration. The tests are used for clinical purposes. Billing Codes Specimen Charges Stain Charges 57838 1 2 12:09 PM [facility] DERMATOPATHOLOGY LABORATORY Embedded Images 12:09 PM [facility] DERMATOPATHOLOGY LABORATORY Pathology/Cytolog y TISSUE SPECIMEN FROM SKIN / Unknown 10/10/2021 10/12/2021 12:31 PM [facility] Arnol Hicks MD LAB - PATHOLOGY/CYTO LOGY ORDERABLES DERMATOPATHOLOGY LABORATORY [facility] - Department of Dermatology [address], [address] [phone] documented in this encounter Visit Diagnoses Not on filedocumented in this encounter
--- OUTSIDE RECORDS SUMMARY | 2024-11-22 15:32 | XMS_ITS | Encounter Summary ---
Author Organization [facility] Address [address] [place] [address] Care Team Providers Care Band Ripsaw Operator Name Role Phone Unavailable Primary Care Provider Unavailabl e Encounter Details Date Type Department Care Team (Late st Contact Info) Description 06/23/2019 Lab Requisition [facility] DermPath Lab [address] [place] [id number] Arnol Hicks MD [address] [place] [address] Social History Tobacco Use Types [...] AM CDT) Case Report Dermatopathology Report Case: [id number] Authorizing Provider: Arnol Hicks MD Collected: 06/22/2019 12:00 AM Ordering Location: [facility] DermPath Lab Received: 06/23/2019 01:48 PM Pathologist: Ren Martins MD Specimen: Skin, right lateral mid thigh 9 4:57 PM CDT DERMATOPATHOLOGY LABORATORY Final Diagnosis Specimen A. SKIN, right lateral mid thigh: LENTIGINOUS MELANOCYTIC NEVUS, JUNCTIONAL TYPE, IRRITATED (JUNCTIONAL MELANOCYTIC NEVUS WITH ARCHITECTURAL DISORDER) (D22.71) 9 4:57 PM CDT DERMATOPATHOLOGY LABORATORY Clinical History [...] characteristic determined by the Dermatopathology Laboratory at [facility], directed by Dr. Suzette Martins. These tests need not be, and therefore are not, approved by the [place] Food and Drug Administration. The tests are used for clinical purposes. Billing Codes Specimen Charges Stain Charges 45059 1 4:57 PM CDT DERMATOPATHOLOGY LABORATORY Embedded Images 4:57 PM CDT DERMATOPATHOLOGY LABORATORY Pathology/Cytolog y TISSUE SPECIMEN FROM SKIN / Unknown 06/22/2019 06/23/2019 1:48 PM CDT Arnol Hicks MD LAB - PATHOLOGY/CYTO LOGY ORDERABLES DERMATOPATHOLOGY LABORATORY [facility] - Department of Dermatology [facility] [facility] [address] [place] [address], [facility] [phone] documented in this encounter Visit Diagnoses Not on filedocumented in this encounter
[2024-11-23 15:37] LABS: EDINFLUASCREEN Negative (Negative)
== END 2024-11-22 13:50 | disposition home or self-care (01) ==
PROVIDERS: Emergency Provider Nurse Practitioner Family; PCP Family Medicine
DX: J06.9 Acute upper respiratory infection, unspecified (principal); Z20.822 Contact with and (suspected) exposure to COVID-19; K21.9 Gastro-esophageal reflux disease without esophagitis; J45.909 Unspecified asthma, uncomplicated
CPT/HCPCS: 87081; 87426; 87804; 87880; 99213; G0463

== ENCOUNTER 2025-01-26 14:19 | Outpatient (CLI) | payer OTHER, SELFPAY ==
--- NOTE | ~2025-01-26 | US_ITS ---
US axilla 01/26/2025 14:41 Indication: Bilateral lymphadenopathy of the axilla Procedure: High-resolution bilateral axillary ultrasound Comparison: No prior studies for comparison. Findings: Normal bilateral axillary lymph nodes with fatty hilum measuring up to 1.3 cm on the right and 0.9 cm on the left. No suspicious masses. Impression: 1: Normal bilateral axillary lymph nodes. Reviewed, dictated and finalized at location A. Impression: 1: Normal bilateral axillary lymph nodes.
== END 2025-01-26 14:20 | disposition home or self-care (01) ==
LOC: MICIMG 14:20
PROVIDERS: PCP Family Medicine
DX: R59.0 Localized enlarged lymph nodes (principal)
CPT/HCPCS: 76882

== ENCOUNTER 2025-02-25 15:48 | Outpatient (CLI) | payer OTHER, SELFPAY ==
--- NOTE | ~2025-02-25 | XR_ITS ---
CHEST RADIOGRAPH, PA AND LATERAL CLINICAL HISTORY: localized enlarged lymph nodes . COMPARISON: 08/17/2024 TECHNIQUE: PA and lateral views of the chest. FINDINGS The cardiomediastinal silhouette is unremarkable. The lungs are clear. Visualized osseous structures and soft tissues are unremarkable. IMPRESSION: No focal infiltrate or effusion. Reviewed, dictated and finalized at location A.
--- OUTSIDE RECORDS SUMMARY | 2025-02-25 15:53 | XMS_ITS | Data Portability ---
Author Organization [facility] [place] Address [address] [place] [address] Care Team Providers Care Disease And Insect Control Boss Name Role Phone JUDY PASCUAL Primary Care Provider Assessment Encounter Date Assessment Date Assessment LastModified by Organization Details LastModified Time 02/10/2025 02/10/2025 Annual gynecological exam performed. Patient will come back in a year unless there are new symptoms. [email or web address] Not available 02/10/2025 16:02:33 02/17/2025 02/17/2025 Annual gynecological exam performed. Patient will come back in a year unless there are new symptoms. [email or web address] Not available 02/17/2025 09:47:06 Plan of Treatment Reminders Order Date Submit Date Provider Last Modified By Organization Details Last Modified Time Details Appointments None recorded. Lab pap, IG + HR HPV - HPV regardless but if HPV is positive need subtyping 16,18/45 2024 025 [facility] (Lab), [address], [place], [address], 5 12:36:48 vitamin B12 + folate, serum or blood 2024 025 [facility] (Lab), [address], [place], [address], 5 04:06:02 25-hydroxyv itamin D2 + 25-hydroxyv itamin D3, QN, serum or plasma 2024 025 [facility] (Lab), [address], [place], [address], 5 04:06:03 25-hydroxyv itamin D2 + 25-hydroxyv itamin D3, QN, serum or plasma 2024 025 [facility] (Lab), [address], [place], [address], 5 23:59:09 Referral general surgeon referral 2024 025 [facility], [address], [address], [place], [address], 5 04:03:24 Procedures None recorded. Surgeries None recorded. Imaging MAMMO, diagnostic, digital, bilateral 2024 025 [facility], [address], [place], [address], 5 04:08:22 US, breast, bilateral - Pt already had axillary u/s done 2024 025 [facility], [address], [place], [address], 5 04:08:22 US, pelvis 2023 024 [facility]ita [place], [address], [address], [place], [address], 4 11:39:44 US, transvagina l 2023 024 [facility], [address], [address], [place], [address], 4 18:12:22 Medication Orders Vivelle-Dot 0.0375 mg/24 hr transdermal patch 2024 025 [id number], [address], [place], [place], [id number], 5 10:15:55 Vivelle-Dot 0.0375 mg/24 hr transdermal patch 2024 025 [id number], [address], [place], [place], [id number], 5 14:35:03 Vivelle-Dot 0.05 mg/24 hr transdermal patch 2023 025 [id number], [address], [place], [place], [id number], 16:06:24 Patient TargetsNo targets recorded. Patient InstructionsNo instructions recorded. Reason for Referral General Surgeon Referral for Axillary lymphadenopathy Referring Physician: Fany Davis, [employer], Encounter Date: 02/10/2025 Results Created Date Observation Date Name Description Value Unit Range Abnormal Flag Note LastModifiedBy Organization Detail LastModifiedTime 11/26/19 25 11/26/2024 VITAM IN D, 25-OH (TOTA L D2/D3 ) vitamin D, 25-hydroxy, total 30.3 NG/mL 30.0-1 00.0 Sugge stive of Defic iency : <20 ng/mL Sugge stive of Insuf ficie ncy: 20-29 ng/mL Sugge stive of Suffi cienc y: 30-10 0 ng/mL Sugge stive of Toxic ity: >150 ng/mL Not Available [facility] (Lab) [address], [place], [address], 11/28/2024 23:59:09 02/18/20 25 02/17/2025 VITAM IN B12 / FOLAT E PANEL vitamin B12 310 pg/mL 180-91 4 Judy l Range : 180-9 14 pg/mL . Indet ermin ate Range : 145-1 80 pg/mL . Defic ient Range : <=145 pg/mL . Not Available [facility] (Lab) [address], [place], [address], 02/18/2025 04:06:02 02/18/20 25 02/17/2025 VITAM IN B12 / FOLAT E PANEL folate, serum 12.7 NG/mL 6.0-20 .0 Not Available [facility] (Lab) [address], [place], [address], 02/18/2025 04:06:02 02/18/20 25 02/17/2025 VITAM IN D, 25-OH (TOTA L D2/D3 ) vitamin D, 25-hydroxy, total 58.1 NG/mL 30.0-1 00.0 Sugge stive of Defic iency : <20 ng/mL Sugge stive of Insuf ficie ncy: 20-29 ng/mL Sugge stive of Suffi cienc y: 30-10 0 ng/mL Sugge stive of Toxic ity: >150 ng/mL Not Available [facility] (Lab) [address], [place], [address], 02/18/2025 04:06:03 02/18/20 25 02/17/2025 IMAGE GUIDE D PAP AND HPV REGAR DLESS image guided Pap, HPV regardless of Pap result SEE RESULT S BELOW CASE REPOR T: Cytol ogy Gynec ologi endy Repor t Case: [id number] Autho abdiaziz g Provi anaya: Fany Davis, MARTITA Colle cted: 02/17 0939 Order ing Locat ion: [place] [facility] Recei yesi: 02/18 0700 First Scree n: Shey Gaming, CT Speci men: Scree eddy Pap - Image d, Cervi x STATE MENT OF ADEQU ACY: Satis facto ry for evalu ation Trans forma tion zone compo nent prese nt ----- ----- ----- ----- ----- ----- ----- ----- ----- ----- ----- ----- ----- ----- ----- ----- ----- ---- FINAL DIAGN OSIS: Negat nancy for Intra epith elial Lesio n or Citlaly chow (NIL) . Elect marky cleary d by Shey Gaming, CT on 2024 at 1133 CDT ----- ----- ----- ----- ----- ----- ----- [...] ut diffe renti ation . COMME NT: This speci men was revie wed by [...] ent false negat nancy rate. Liqui d-bas ed sampl ing may decre ase, but will [...] is recom janice d, as clini larisa roger nted. Not Available [facility] (Lab) [address], [place], [address], 02/22/2025 12:36:48 09/09/20 24 09/10/2024 US, pelvi s No observ ation record ed. [facility] [address], [place], [address], 09/10/2024 18:12:12 09/09/20 24 09/10/2024 US, trans vagin al No observ ation record ed. [facility] [address], [place], [address], 09/10/2024 18:12:22 09/09/20 24 09/09/2024 US, pelvi s No observ ation record ed. [facility] [address] [facility], [place], [address], 09/10/2024 13:56:25 Result Notes None recorded. Problems Name Problem SNOMED Code Status Onset Date Resolution Date Notes Provider Name and Address Organization Details Recorded Time Speciali julius medical examinat ion Completed 201307/31/2021 Routine gynecolog ical examinati on;Practi ce ID: 0001 [facility] 16:37:08 Screenin g for malignan t neoplasm of cervix Completed 201307/31/2021 Pap Smear;Pra ctice ID: 0001 Brianna Dueñas [facility] 16:37:01 Screenin g for malignan t neoplasm of rectum Completed 201307/31/2021 Screening for malignant neoplasms of the rectum;Pr actice ID: 0001 Brianna chacon [facility] 16:37:03 Finding of pattern of menstrua l cycle [id number] Completed 201407/31/2021 Excessive and frequent menstruat ion with irregular cycle;Pra ctice ID: 0001 Brianna Dueñas [facility] 16:36:50 Pregnanc y test negative [id number] Completed 201407/31/2021 Encounter for test, result negative; Practice ID: 0001 Brianna Dueñas [facility] 16:36:57 Insertio n of intraute rine contrace ptive device Completed 201507/31/2021 Encounter for insertion of intrauter ine contracep tive device;Pr actice ID: 0001 Brianna chacon [facility] 16:36:53 Sinusiti s [id number] Completed 201507/31/2021 Chronic sinusitis , unspecifi ed;Practi ce ID: 0001 Brianna Dueñas [facility] 16:37:04 Contrace ptive sheath status [id number] Completed 201507/31/2021 Encounter for routine checking of intrauter ine contracep dev;Pract ice ID: 0001 Brianna Dueñas [facility] 16:36:[address] Concept Completed 201507/31/2021 Encntr for digital design engineer exam (general) (routine) w/o abn findings; Practice ID: 0001 Brianna chacon [facility] 16:37:07 Hemorrha ge of rectum and anus [id number] Completed 201607/31/2021 Hemorrhag e of anus and rectum;Pr actice ID: 0001 Brianna chacon [facility] 16:36:52 Body mass index 25-29 - overweig 124508385 Completed 201607/31/2021 Body mass index (BMI) 26.0-26.9 , adult;Rec orded Elsewhere : No Locati on: [facility] So urce: EHR Chron ic: N Practic e ID: 0001 Bill able Time: 02:30:00 PM Brianna Dueñas [facility] 16:36:[address] Concept Completed 201807/31/2021 Encntr for general adult medical exam w/o abnormal findings; Recorded Elsewhere : No Locati on: [facility] So urce: EHR Chron ic: N Practic e ID: 0001 Bill able Time: 09:15:00 AM Brianna Dueñas [facility] 16:37:06 Removal of intraute rine device Completed 201107/31/2021 REMOVAL OF IUD;Recor ded Elsewhere : No Locati on: [facility] So urce: EHR Chron ic: N Practic e ID: 0001 Bill able Time: 03:45:00 PM Brianna Dueñas [facility] 16:36:58 Reproduc tive care manageme nt Completed 201107/31/2021 Unspecifi ed procreati ve managemen t;Recorde d Elsewhere : No Locati on: [facility] So urce: EHR Chron ic: Y Practic e ID: 0001 Bill able Time: 02:30:00 PM Brianna Dueñas [facility] 16:37:00 Irregula r intermen strual bleeding [id number] Completed 201507/31/2021 Metrorrhana pandya;Recor ded Elsewhere : No Locati on: [facility] So urce: EHR Chron ic: N Practic e ID: 0001 Bill able Time: 01:30:00 PM Brianna Dueñas [facility] 16:36:55 Female infertil ity [id number] Completed 201107/31/2021 Infertili ty, female, of unspecifi ed origin;Re corded Elsewhere : No Locati on: [facility] So urce: EHR Chron ic: N Practic e ID: 0001 Bill able Time: 09:30:00 AM Brianna [facility] 16:36:48 Micturit ion finding Completed 201807/31/2021 Urinary incontine nce;Recor ded Elsewhere : No Locati on: [facility] So urce: EHR Chron ic: N Practic e ID: 0001 Bill able Time: 09:15:00 AM Brianna [facility] 16:36:44 Urinary tract infectio us disease [id number] Completed 201107/31/2021 Urinary Tract Infection ;Recorded Elsewhere : No Locati on: [facility] So urce: EHR Chron ic: N Practic e ID: 0001 Bill able Time: 09:45:00 AM [facility] 16:37:10 Acute lymphade nitis of upper limb [id number] Completed 201507/31/2021 Acute lymphaden itis of axilla;Re corded Elsewhere : No Locati on: [facility] So urce: EHR Chron ic: N Practic e ID: 0001 Bill able Time: 01:30:00 PM [facility] 16:36:41 Clinical finding Completed 201507/31/2021 Presence of (intraute rine) contracep tive device;Re corded Elsewhere : No Locati on: [facility] So urce: EHR Chron ic: N Practic e ID: 0001 Bill able Time: 03:45:00 PM [facility] 16:36:45 Problem Notes None recorded. Procedures Surgical History Date Name Laterality Status Provider Name and Address Organization Details Recorded Time 024 Date of Last Mammogram completed Kianna Bush [facility] 08/27/2024 10:47:06 021 Date of Last Pap Smear completed Kianna Bush [facility] 08/27/2024 10:47:44 021 IUD Insertion completed Maren Hickey [facility]- [address], [place], [address], [place] [facility] 10/20/2020 12:31:05 019 Colonoscopy completed [facility] 07/31/2021 16:41:07 016 Colposcopy completed [facility] 07/31/2021 16:43:16 005 Colonoscopy completed [facility] 07/31/2021 16:40:45 Colonoscopy completed [facility] 08/03/2021 14:57:37 Hysteroscopy completed [facility] 07/07/2020 11:00:35 loop electrosurgical excision procedure completed [facility] 07/07/2020 11:00:40 Imaging Results Imaging Date Name Status LastModified by Organization Details LastModified Time 09/10/2024 US, pelvis completed [address], [place], [address], 09/10/2024 18:12:12 09/10/2024 US, transvaginal completed [address], [place], [address], 09/10/2024 18:12:22 09/09/2024 US, pelvis completed [facility] [address], [place], [address], 09/10/2024 13:56:25 Procedure Notes None recorded. Medical Equipment None Reported. Allergies Allergen ID Allergen Name Allergen Category Reaction Reaction Severity Criticality Documentation Date Start Date Code Code System Note Provider Name and Address Organization Details Recorded Time 2235 Product containin g penicilli n (product) medicatio n Not available Not available Not available 07/07/2020 [address] [facility] 0 10:49:55 Medications Name Sig Start Date Stop Date Status Note LastModified by Organization Details LastModified Time Mirena 21 mcg/24 hr (up to 8 years) 52 mg intrauter ine device iud inserted 2020 active Not Available Not Available Not Avai lable prednison e 10 mg tablet TK 1 T PO TID 10/20 completed Not Available Not Available Not Available cetirizin e 10 mg tablet TAKE 1 TABLET BY MOUTH NIGHTLY active Not Available Not Available No t Available azithromy greg 250 mg tablet TK 2 TS PO ON DAY 1, THEN TK 1 T PO D FOR 4 DAYS 02/10 completed Not Available Not Available Not Available ibuprofen 800 mg tablet TAKE 1 TABLET BY MOUTH THREE TIMES DAILY FOR 7 DAYS NEEDED FOR PAIN 11/26 completed Not Available Not Available Not Available [...] Prescrib ed Elsewher e: Yes Loca tion: [facility] M odify By: nora Silver ncounter DateTime : 02/28/20 17 02:30:00 PM Not Available Not Available Not Available metronida zole 500 mg tablet TAKE 1 TABLET BY MOUTH EVERY 8 HOURS FOR 7 DAYS 11/26 completed Not Available Not Available Not Available phentermi ne 37.5 mg tablet TAKE 1 TABLET BY MOUTH DAILY 08/27 completed Not Available Not Available Not Available estradiol 0.05 mg/24 hr semiweekl y transderm al patch APPLY 1 PATCH TOPICALL Y TO THE SKIN 2 TIMES A WEEK 02/10 completed Not Available Not Available Not Available sulfameth oxazole 800 mg-trimet hoprim 160 mg tablet TAKE 1 TABLET BY MOUTH EVERY 12 HOURS active Not Available Not Available No t Available doxycycli ne monohydra te 100 mg tablet TAKE 1 TABLET BY MOUTH TWICE DAILY 08/27 completed Not Available Not Available Not Available Macrobid 100 mg capsule take 1 capsule (100MG) by oral route every 12 hours with food 01/11 completed Prescrib ed Elsewher e: No Locat ion: [facility] odify By: brijesh marinounter DateTime : 05/18/20 12 09:45:00 AM Not Available Not Available Not Available Celebrex 200 mg capsule 200 mg PO the night before and 400 mg PO morning of procedur e 02/19 completed Prescrib ed Elsewher e: No Locat ion: [facility] odify By: nora marinounter DateTime : 09/22/20 15 11:28:27 AM Not Available Not Available Not Available alprazola m 0.5 mg tablet TAKE 1 TABLET BY MOUTH TWICE DAILY NEEDED FOR ANXIETY 08/27 completed Not Available Not Available Not Available benzonata te 100 mg capsule TAKE 1 CAPSULE BY MOUTH THREE TIMES DAILY NEEDED FOR COUGH 02/10 completed Not Available Not Available Not Available Cipro 500 mg tablet take 1 tablet by oral route every 12 hours 02/27 completed Prescrib ed Elsewher e: No Locat ion: [facility] odify By: amino Silver ncounter DateTime : 02/22/20 16 10:36:38 AM Not Available Not Available Not Available Vivelle-D ot 0.0375 mg/24 hr transderm al patch Apply 1 patch twice a week by transder mal route. 2024 active Not Available Not Available Not Avai lable butalbita l-aspirin -caffeine 50 mg-325 mg-40 mg capsule take 1 capsule by oral route every 4 hours as needed not to exceed 6 capsules per 24hrs 02/27 completed Prescrib ed Elsewher e: Yes Loca tion: [facility] odify By: nora marinounter DateTime : 02/20/20 16 01:30:00 PM Not Available Not Available Not Available omeprazol e 20 mg capsule,d elayed release TAKE 1 CAPSULE BY MOUTH DAILY 08/27 completed Not Available Not Available Not Available Macrodant in 100 mg capsule take 1 capsule (100MG) by oral route every 6 hours for 7 days with food 05/24 completed Prescrib ed Elsewher e: No [facility] By: sony gallo DateTime : 05/18/20 12 09:45:00 AM Not Available Not Available Not Available hydrocort isone 2.5 % topical cream 07/07 completed Not Available Not Available Not Available diazepam 10 mg tablet 10 mg PO 1 hour before the procedur e 02/19 completed Prescrib ed Elsewher e: No [facility] By: amino Silver ncounter DateTime : 09/22/20 15 11:28:27 AM [...] Prescrib ed Elsewher e: No Locat ion: [facility] odify By: amino Silver ncounter DateTime : 03/05/20 17 09:19:13 AM Not Available Not Available Not Available hydrocort isone 2.5 % topical ointment APPLY TOPICALL Y TO FACE RASH TWICE DAILY FOR 2 WEEKS NEEDED FOR FLARES active Not Available Not Available No t Available ketoconaz ole 2 % topical cream APPLY TO THE AFFECTED AREA TWICE DAILY 08/27 completed Not Available Not Available Not Available [place] 5 mg-325 mg tablet 2 tabs PO 2 hours before the procedur e 02/19 completed Prescrib ed Elsewher e: No Locat ion: [facility] odify By: nora ryan DateTime : [...] Elsewher e: No Locat ion: [facility] odify By: brijesh ryan DateTime : 09/21/20 12 02:19:14 PM Not Available Not Available Not Available loratadin e 10 mg tablet TAKE 1 TABLET BY MOUTH DAILY active Not Available Not Available No t Available diazepam 5 mg tablet TAKE 1 TABLET BY MOUTH 30 TO 60 MINUTES BEFORE MRI 08/03 completed Not Available Not Available Not Available metoprolo l tartrate 25 mg tablet 08/03 completed Not Available Not Available Not Available Canasa 1,000 mg rectal supposito ry insert 1 supposit ory by rectal route every day at bedtime 10/20 completed Prescrib ed Elsewher e: Yes Loca tion: [facility] odify By: geoff ryan DateTime : 03/05/20 18 01:00:00 PM Not Available Not Available Not Available Vitamin D active Not Available Not Baylee ilable Not Available Vitamin D3 10 mcg (400 unit) capsule 12/14 completed Prescrib ed Elsewher e: Yes Loca tion: [facility] odify By: nora ryan DateTime : 09/09/20 17 08:30:00 AM Not Available Not Available Not Available Treximet 85 mg-500 mg tablet 03/05 completed Prescrib ed Elsewher e: Yes Loca tion: [facility] odify By: geoff Silver ncounter DateTime : 02/20/20 16 01:30:00 PM Not [...] the affected area(s) 10/20 completed Prescrib ed Cynthia e: No Locat ion: [facility] odify By: tgingric h Encoun ter DateTime : 09/09/20 17 08:30:00 AM Not Available Not Available Not Available Paxlovid 300 mg (150 mg x 2)-100 mg tablets in a dose pack TAKE 2 NIRMATRE LVIR TABLET WITH 1 RITONAVI R TABLET TWICE DAILY FOR 5 DAYS 08/27 completed Not Available Not Available Not Available Airsupra 90 mcg-80 mcg/actua tion HFA aerosol inhaler INHALE 2 PUFFS BY MOUTH 6 TIMES PER DAY NEEDED FOR SHORTNES S OF BREATH active Not Available Not Available No t Available Vitals Date Recorded Body height Body mass index (BMI) Body weight Systolic blood pressure Diastolic blood pressure Provider Name and Address Organization Details Last Updated DateTime 08/27/2024 157.48 cm 29.6 kg/m2 19883.96 g 105 mm[Hg] 70 mm[Hg] [facility] 4 10:54:43 Date Recorded Body height Body mass index (BMI) Body weight Systolic blood pressure Diastolic blood pressure Provider Name and Address Organization Details Last Updated DateTime 11/26/2024 157.48 cm 30 kg/m2 14923.15 g 111 mm[Hg] 75 mm[Hg] [facility] 5 14:12:53 Date Recorded Body height Body mass index (BMI) Body weight Systolic blood pressure Diastolic blood pressure Provider Name and Address Organization Details Last Updated DateTime 02/10/2025 157.48 cm 30.3 kg/m2 46985.61 g 106 mm[Hg] 73 mm[Hg] [facility] 5 16:05:27 Date Recorded Body height Body mass index (BMI) Body weight Systolic blood pressure Diastolic blood pressure Provider Name and Address Organization Details Last Updated DateTime 02/17/2025 157.48 cm 29.9 kg/m2 58163.99 g 108 mm[Hg] 73 mm[Hg] [facility] 5 09:47:55 Social History Question Answer Notes LastModified by Organizat ion Details LastModified Time Tobacco Smoking Status Never Smoker Brianna Dueñas [facility] 08/03/2021 14:57:34 Do You Have An Advance Directive? No Information n ot available 12/14/2020 If You Are , What Was Your Level Of Alcohol Consumption Prior To ? None Information not available 08/03/2021 How Many Years Have You Consumed Alcohol? 30 Information not available 12/14/2020 Are You Blind Or Do You Have Difficulty Seeing? No Information n ot available 12/14/2020 What Is Your Level Of Caffeine Consumption? Heavy Information not available 10/20/2020 How Much Tobacco Do You Chew? None Information not available 12/14/2020 In The 14 Days Before Symptom Onset, Have You Had Close Contact With A Laboratory-confirm ed COVID-19 While That Case Was Ill? No Information n ot available 12/14/2020 In The 14 Days Before [...] Of Diet Are You Following? REGULAR Information n ot available 12/14/2020 What Is The Highest Grade Or Level Of School You Have Completed Or The Highest Degree You Have Received? [id number] Information not available 12/14/2020 How Many Days [...] No Information not available 12/14/2020 Do You Use Sunscreen Routinely? Yes Information not available 12/14/2020 Has Tobacco Cessation Counseling Been Provided? No Information not available 08/03/2021 Have You Used IV Drugs? No Information not available 12/14/2020 How Many Days In The Past Year Have You Consumed 4 Or More Drinks? 10 Information not available 08/03/2021 Sex: Unknown Functional Status Question Answer Note LastModified by Organizat ion Details LastModified Time Do you use any illicit or recreational drugs? No Information not available 10/20/2020 Do you or have you ever used any other forms of tobacco or nicotine? No Information not available 08/03/2021 What is your level of alcohol consumption? Occasional Information not available 10/20/2020 Are you able to walk? YESWOREST Information not available 12/14/2020 What is your occupation? [employer] Information not available 12/14/2020 What is your exercise level? Occasional Information not available 10/20/2020 Mental Status Question Answer Note LastModified by Organization D etails LastModified Time Do you feel stressed (tense, restless, nervous, or anxious, or unable to sleep at night)? [id number] Information not available 12/14/2020 Family History Relationship Description Onset Age of [...] 2019 10:59:50 Maternal Grandmother Deep venous thrombosis [email or web address] Not available 02/10 15:43:49 Maternal Grandmother Disorder of thyroid gland Not available 2019 11:00:27 Sister Infertile Not availabl e 02/10/2025 15:43:49 Sister Cyst of ovary [email or web address] Not available 2024 15:43:49 Mother Cyst of ovary Not available 2024 15:43:49 Medical History Condition Response Allergies (Food, seasonal, environmental ) N Other N Breast Cancer N Drug/Latex Allergies/Reactions N Blood Transfusion N Dermatologic Disorders N Lung Disease N Defects or Inherited Disease N Breast Problem N Gestational Diabetes N Hematologic disorders N Anesthesia Complications N History of STI N Deep Vein Thrombosis N Polycystic ovary syndrome N Anxiety Disorder N Autoimmune disease N Arthritis N Infertility N Polyps N Acid Reflux (GERD) N History of abnormal pap N Cancer N Stroke N Varicosities N Neurologic/Epilepsy N Endometriosis N High Cholesterol N Headaches N Fibromyalgia N Kidney Disease N Heart Problems N Kidney or Bladder Problems N Thyroid Problems N GI Problems N Eating Disorder N Anemia N Art (IVF or FET) N Psychiatric Illness N Ovarian Cancer N Diabetes N Pulmonary (TB, Asthma) N Hepatitis/Liver Disease N Eczema N Urinary Tract Infection N Abuse/Domestic Violence N Asthma N Trauma/Violence N Depression/ depression N Heart Disease N Pre-Eclampsia N Hypertension N Osteoporosis N Thrombophilias N Gynecological History Statement/Question Response Date of Last Mammogram 07/01/2024 On BCP's at Conception? N Y STIs/STDs N HPV Vaccine N Colposcopy 10/13/2015 13 Current Control Method IUD Age at First Child 29 Sexually Active? Y Age of first menstrual cycle 13 Date of Last Pap Smear 08/03/2021 Sexual Problems? N Desired Control Method IUD LMP Unknown N Obstetrics History GPAL:G 2 P 2 0 0 2 Type Value Full Term 2 Living 2 Total 2 Past Encounters Encounter ID Performer Location Encounter Start Date Encounter Closed Date Diagnosis/Indication Diagnosis SNOMED-CT Code Diagnosis ICD10 Code Diagnosis Note [id number] Maren Hickey , [facility] [address],[place] [address] 07/07/2020 10:49:10 07/07/2020 12:31:42 Gynecologic examination 24272036 Z01.419 Suggested Calcium with Vitamin D 1200-1500m g daily. Patient advised to get an annual flu shot in the fall and she could obtain at [facility] or [facility]. Also to obtain TDap vaccinatio n [...] Mirena IUD 11/02/2015 placed. Climacteric flushing [id number] N95.1 Having some perimenopa usal/menop ausal sx's She has mirena IUD. Aware that FSH/LH results might be skewed by this device but we can get an idea if menopausal changes are related to her complaints . [id number] Maren Hickey [facility] [address],[place] [address] 10/20/2020 10:28:47 10/20/2020 12:35:49 Contraception care management 067175419 Z30.9 test negative 944246638 Z32.02 Insertion of intrauterine contraceptive device 83762162 Z30.430 Patient is here for IUD Removal/re [...] verbalized understand ing. Removal of intrauterine device 33427699 Z30.432 We discussed the timing of the [...] ing of all the above instructio ns. [id number] GINO Perez-[facility] [address],[place] [address] 12/14/2020 15:01:02 12/14/2020 15:43:56 IUD check 823325804 Z30.431 Patient is here today for 4wk [...] this patient s visit, including available hand warehouse helper upon arrive, temperatur e check and being [...] counseling and review of plan of care. [id number] [facility] [address] [address] 08/03/2021 14:45:59 08/03/2021 15:46:32 Gynecologic examination 88277253 Z01.419 Suggested Calcium with Vitamin D 1200-1500m g daily. Patient advised to get an annual flu shot in the fall and she could obtain at [facility] or [facility]. Also to obtain TDap vaccinatio n [...] IUD 11/02/2015 placed.Dre mo orderedCol on-PCP managed [facility] [id number] M25.519 G89.29 Requested referral for consult breast reduction. [id number] NIKIA STUBBS MD [facility] [address] [address] 08/27/2024 10:44:07 08/27/2024 11:39:18 Hormone replacement therapy 408020543 Z79.890 - patient reports worsening menopausal symptoms [...] migraine w/ visual changes, breast cancer dx, SD/stroke, DVT/PE, Endometria l cancer. Please contact office with any new or worsening side effects or adverse reactions. Or if a medical emergency please go to nearest ED/[facility] for further evaluation . RTC 3 months for med check Abnormal u terine bleeding [id number] 9100 N93.9 - patient reports two day long episodes of bleeding since May- Mirena IUD in place, due out 10/2028- IUD strings visualized on exam- will order pelvic US to ensure correct placement [id number] Bronson Zaman MD [facility] [address] [address] 09/09/2024 17:32:59 09/10/2024 11:39:44 Abnormal uterine bleeding [id number] 9100 N93.9 [id number] NIKIA STUBBS MD [facility] [address] [address] 11/26/2024 13:58:38 11/26/2024 14:39:48 Hormone replacement therapy 748560252 Z79.890 - patient reports worsening menopausal symptoms over the past few years, now improved with estrogen patch- reports body odor and increased fatigue since starting patch- will decrease dosage and monitor symptoms- if hot flashes stable and still having side effects as above, will try to decrease to 0.025mg patch- rtc for WWE Vitamin D deficiency [id number] 47172 E55.9 - hx of vitamin D deficiency , has not been on supplement ation- will recheck levels today [id number] GINO Chamberlain [facility] [address] [address] 02/10/2025 15:43:21 02/11/2025 11:35:22 Axillary lymphadenopathy 523195687 R59.0 Records request sent for recent axillary u/sorder given for bilateral diagnostic mammogram with u/swe agreed to consult with general surgery for further evaluation referral placed, questions answered, precaution s discusseds he will RTC for WWE Time spent in visit is a total of 25 mins with at least 50% of visit consisting of counseling and review of plan of care. [id number] GINO Chamberlain [facility] [address] [address] 02/17/2025 09:24:36 02/17/2025 10:38:45 Gynecologic examination 77497821 Z01.419 WWEPap - done todaySTI screen - declinedMa mmogram - scheduled this monthColon cancer screening - PCP managesDex a- n/aRoutine labs - UTD/PCPRTC in 1 yr or sooner if needed Do monthly self breast exams.It is advised to get annual flu shot in the fall and she could obtain at local pharmacy. If you haven't received the Tdap vaccine in the last 10 years you should obtain one as well.Have mammogram yearly, bone density every 2-3 years and stay up to date on colon cancer screening. Engage in regular exercise. Avoid tobacco and illicit drugs. This lifestyle behavior pattern will lead to less health conditions and longer life span. If BMI greater than 25 dietary consult advised.Qu estions have been answered. Fatigue 80905886 R53.83 labs ordered per pt request Hormone re placement therapy [id number] Z79.[address] (inserted 10/20/2020) refills of transderma l estradiol patches sent, r/b/a reviewed, precaution s discussed Health Concerns Section Related Observation LastModified by Organization Detai ls LastModified Time None Recorded Concern Status LastModified by Organization Details LastModified Time None Recorded Advance Directives Directive N: Payers Encounter Date Sequence Insurance Name Policy Number Policy Castro Covered Member ID Castro Member ID Guarantor Name 08/27/2024 1 [facility] [id number] Alyssa L Rodo [id number] Alyssa L Rodo 09/09/2024 1 [facility] [id number] Alyssa L Rodo [id number] Alyssa L Rodo 11/26/2024 1 [facility] [id number] Alyssa L Rodo [id number] Alyssa L Rodo 02/10/2025 1 [facility] [id number] Alyssa L Rodo [id number] Alyssa L Rodo 02/17/2025 1 [facility] [id number] Alyssa L Rodo [id number] Alyssa L Rodo Notes Date Note Type Note Provider Name and Address Organization Details Recorded Time 08/27/2024 text/html Patient presents for evaluation of [...] etiology. NIKIA STUBBS MD [address], [place], [address], [facility] 08/27/2024 11:38:39 11/26/2024 text/html Patient presents for med check. She was started on estradiol patch 3 months ago. She reports increased fatigue although she is sleeping better as well as increased body odor. Hot flashes resolved. NIKIA STUBBS MD [address], [place], [address], [facility] 11/26/2024 14:39:33 02/10/2025 text/html 54yopresents for further evaluation of axillary lumps noticed a few months agoaxillary enlargement/tender ness at timesno redness, drainage, or warmthshe had an axillary u/s done at [facility] a few weeks ago ordered by PCP, pt states PCP told her no additional f/u needed at this time and have a breast exam done by digital design engineer. she has had a few different illnesses since 08/2024had recent blood work done with PCPscreening mammogram last 06/2024 - wnl per pt GINO Chamberlain [address], [place], [address], [facility] 02/11/2025 09:24:09 02/17/2025 text/html Annual GYNReport ed bypatient.Menstrua l cycle:Perimenopaus al Urinary symptoms:No hematuria; No incontinence Vulva:No genital lesion Vagina:Normal vaginal discharge Breast:No breast pain; No breast lump; No nipple discharge Current Contraception:Sati sfied with current contraception; Intrauterine device (iud) Sexual complaints:No sexual complaints; No pain during intercourse; Normal libido Menopausal Symptoms:No menopausal symptoms; Normal vaginal lubrication Psychological symptoms:No depression; No anxiety; No PMDD Preventive measures:Encourage self breast examination; Encourage regular exercise; Encourage no tobacco use; Encourage regular mammograms starting age 40Notes:54yo wweMirena IUD, inserted 10/20/2020ast pap 2020 : nilm, HPV (-) scheduled to see general surgery soon regarding axillary enlargement. Has mammogram scheduled this month.labs UTD/PCP on estradiol patches, hot flashes controlled would like B12/vitamin D checked today d/t fatigue GINO Chamberlain [address], [place], [address], [facility] 02/17/2025 10:36:50 OBGyn Episode Ob Episode Information Episode Created Date Number of Fetuses Patient Bloodtype Patient rh Status Prepregnancy Weight lbs Domestic Partner Domestic Partner Phone Father Name Brick Or Block Maker Status 07/07/20 20 1 CLOSED Fetus Data [...] Domestic Partner Domestic Partner Phone Father Name Brick Or Block Maker Status 07/07/20 20 1 CLOSED Fetus Data [...]
--- OUTSIDE RECORDS SUMMARY | 2025-02-25 15:53 | XMS_ITS | Encounter Summary ---
Author Organization [facility] Address [address] [place] [address] Care Team Providers Care Apple Packing Header Name Role Phone Unavailable Primary Care Provider Unavailabl e Encounter Details Date Type Department Care Team (Late st Contact Info) Description 02/07/2022 Lab Requisition [facility] [address] [place] [id number] Arnol Hicks MD [address] [place] [address] Social History Tobacco Use Types Packs/Day Years Used Date Smoking Tobacco: Never Assessed Comments Unknown Sex and Gender Information Value Date Recorded Sex Assigned at Not on file Legal Sex Female 12:55 PM CDT Gender Identity Not on file Sexual Orientation Not on file documented as of this encounter Plan of Treatment Not on file documented as of this encounter Procedures Procedure Name Priority Date/Time Associated Diagnosis Comments DERMATOPATHOLOGY Routine 02/06/2022 3:33 AM CDT documented in this encounter Results * DERMATOPATHOLOGY (02/06/2022 3:33 AM CDT) Case Report Dermatopathology Report Case: [id number] Authorizing Provider: Arnol Hicks MD Collected: 02/06/2022 03:33 AM Ordering Location: [facility] Received: 02/07/2022 01:48 PM Pathologist: Ren Martins MD Specimen: Skin, right upper chest 2 6:53 PM CDT DERMATOPATHOLOGY LABORATORY Final Diagnosis Specimen A. SKIN, right upper chest: LICHEN PLANUS-LIKE KERATOSIS (BENIGN LICHENOID KERATOSIS) (L82.1) 2 6:53 PM CDT DERMATOPATHOLOGY LABORATORY at 1853 CDT Clinical History R/O LPLK vs BCC vs SCC. 2 6:53 PM CDT DERMATOPATHOLOGY LABORATORY Gross Description Specimen A: Received is one formalin filled container labeled with the patient's name and designated right upper chest. The specimen consists of a shave biopsy measuring [id number]. Jar 0. 2 6:53 PM CDT DERMATOPATHOLOGY [...] characteristic determined by the Dermatopathology Laboratory at [facility], directed by Dr. Suzette Martins. These tests need not be, and therefore are not, approved by the [place] Food and Drug Administration. The tests are used for clinical purposes. Billing Codes Specimen Charges Stain Charges 50854 1 2 6:53 PM CDT DERMATOPATHOLOGY LABORATORY Embedded Images 2 6:53 PM CDT DERMATOPATHOLOGY LABORATORY Pathology/Cytolo gy TISSUE SPECIMEN FROM SKIN / Unknown 02/06/2022 3:33 AM CDT 02/07/2022 1:48 PM CDT Arnol Hicks MD LAB - PATHOLOGY/CYTOLOGY ORD ERABLES Final Result DERMATOPATHOLOGY LABORATORY [facility] - Department of Dermatology [address], [address] [phone] documented in this encounter Visit Diagnoses Not on filedocumented in this encounter
--- OUTSIDE RECORDS SUMMARY | 2025-02-25 15:53 | XMS_ITS | Referral Summary ---
Author Organization [facility] Address [address] [place] [address] Care Team Providers Care Wire Fence Builder Name Role Phone Bryan Pollock MD Primary Care Provider [phone] Lizandro Colón Unavailable Unavailable Fany Davis LAP MACHINE TENDER Unavailable [phone] Encounters Date Type Department Care Team Description 02/24/2025 8:05 AM CDT - 02/24/2025 11:59 PM CDT Hospital Encounter [facility] [address] [place] [address] Arrived Discharge Disposition: Discharge to home or self care 02/16/2025 Telephone [facility] [address] [facility] 3rd Floor [address] [place] [address] Tiaar Wallace Appointment 02/15/2025 Telephone [facility] ([facility]) - [facility] Minimally Invasive Surgery [address] [facility] 12th Floor, [place] [phone] Faviola Oneil 01/31/2025 Documentation [facility] Gastroenterology [address] [facility] 12th [place] [phone] Qiana Lentz RN 01/25/2025 9:00 AM CDT Office Visit [facility] Pulmonary [address] [facility] 8th [place] [phone] Dionna Melo NP Moderate persistent asthma without complication (Primary Dx); Shortness of breath on exertion; Seasonal allergies; Gastroesophageal reflux disease without esophagitis; Immunization counseling 01/25/2025 8:15 AM CDT - 01/25/2025 11:59 PM CDT Hospital Encounter [facility] Pulmonary [address] [facility] [address] [place] [address] Moderate persistent asthma, unspecified whether complicated Discharge Disposition: Discharge to home or self care 01/19/2025 Telephone [facility] Pulmonary [address] [facility] 8th [place] [address] Omar Mckenzie, SUSHMA 01/18/2025 Telephone [facility] Pulmonary [address] [facility] 8th [place] [address] [place] [address] Omar Mckenzie, SUSHMA 01/14/2025 11:30 AM CDT Office Visit [facility] Gastroenterology [address] [facility] 12th [place] [address] [place] [address] Lorena Kaye NP History of proctitis (Primary Dx); Abdominal pain; Alopecia from Last 3 Months Allergies Active Allergy [...] ELBOW RASH TWICE DAILY DIRECTED 1 Active metoprolol tartrate (LOPRESSOR) 25 mg immediate release tablet Take 0.5 tablets (12.5 mg total) by mouth 2 (two) times a day 30 tablet 11 3 Active Additional Information Patient taking differently:12.5 mg oralAs needed, Reported on 01/14/2025 multivitamin with iron tablet Take 1 tablet by mouth daily Active Lactobacillus acidophilus (PROBIOTIC ORAL) Take by mouth Active loratadine (CLARITIN) 10 mg tablet Take 1 tablet (10 mg total) by mouth daily 30 tablet 11 4 07/16/20 25 Active mometasone-form oterol (DULERA 100) 100-5 mcg/actuation inhaler 1 puff twice daily and as needed. Rinse mouth with water after use. Do not swallow. 1 each 4 Active Airsupra 90-80 mcg/actuation HFA aerosol inhaler INHALE 2 PUFFS BY MOUTH 6 TIMES PER DAY NEEDED FOR SHORTNESS OF BREATH 5 Active estradioL (VIVELLE-DOT) 0.0375 mg/24 hr 4 Active hydrocortisone 2.5 % ointment APPLY TOPICALLY TO FACE RASH TWICE DAILY FOR 2 WEEKS NEEDED FOR FLARES 5 Active ibuprofen (ADVIL,MOTRIN) 800 mg tablet TAKE 1 TABLET BY MOUTH THREE TIMES DAILY FOR 7 DAYS NEEDED FOR PAIN 5 Active cetirizine 10 mg capsule Take 10 mg by mouth nightly 30 capsule [address] (NexIUM) 20 mg capsule Take 1 capsule (20 mg total) by mouth daily 90 capsule 5 Active Active Problems Problem Noted Date Diagnosed Date Bronchiectasis, uncomplicated 01/25/2025 Alopecia 01/14/2025 Assessment & Plan (01/14/2025 8:13 PM CDT): The patient appears to have lost hair follicle near her ears in a discrete patch. This seems most consistent with alopecia areata. We would recommend that she be seen by Dermatology. Bilateral tinnitus 05/22/2023 History of proctitis 04/24/2023 Assessment & Plan (04/24/2023 11:24 AM CDT): While there was some concern for proctitis in 2018, there was no chronicity and subsequent endoscopy has been normal. She has known internal hemorrhoids that likely are the cause of her intermittent bright red blood per rectum Asthma 04/14/2023 Chronic tension-type headache, not intractable [...] the vision, but can provide symptomatic relief) Resolved Problems Problem Noted Date Diagnosed Date Resolved Date Abdominal pain 01/14/2025 01/25/2025 Assessment & Plan (01/14/2025 8:12 PM CDT): The patient is reporting 3 different pains. First is more upper abdomen and burning in nature. We would recommend that she try taking omeprazole for 2 weeks and report back on whether this sensation is improved as this may reflect a gastritis. She also complains of intermittent right lower quadrant pain and left lower quadrant pain. The short-lived nature of this seems more suggestive of a functional condition. Historically she has always had a fairly high stool burden and currently he is not taking anything consistently to help her move. We would recommend that she try a cleanout and then her fiber supplementation. She can discontinue her probiotic and collagen as neither of these are making much difference. As she did have a bout of diverticulitis recently, we would recommend that if she is still having trouble that we repeat a CT scan of her abdomen to rule out other issues. If the CT is unremarkable, she may benefit from a neuromodulator. She can try peppermint and kamryn in the meantime Pelvic pain 04/24/2023 01/25/2025 Pain, pelvic, female 04/24/2023 025 Assessment & Plan (04/24/2023 11:25 AM CDT): [...] we would recommend that she follow-up with binder cutter and consider a CT scan of the abdomen and pelvis. Ulcerative proctitis with complication 12/04/2018 01/14/2025 Overview (12/04/2018): Added automatically from request for surgery [id number] Hematochezia 03/13/2018 01/25/2025 Proctitis 12/10/2017 01/25/2025 Hematochezia 10/16/2017 01/25/2025 Episodic tension-type headache 12/17/2016 01/25/2025 Migraine without aura and re sponsive to treatment 03/28/2016 01/25/2025 Sprain of medial collateral ligament of knee 4 01/25/2025 Knee pain 04/20/2014 01/25/2025 Disorder of ovary 03/31/2013 01/25/2025 Pain of foot 11/30/2012 01/25/2025 Immunizations Immunization Administration Dates Next Due Influenza, Trivalent, Cell C ulture-based MDCK, Preservative Free, Antibiotic Free, Intramuscular 08/10/2024 Influenza, Unspecified 07/21/2023 Social History Tobacco Use Types Packs/Day Years [...] on file Legal Sex Female 2:03 AM ASSURANCE AUDITOR Gender Identity Female 01/31/2021 3:51 PM CDT Sexual Orientation Straight 01/31/2021 3: 51 PM CDT 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 Not on file Not on file Not on file Last Filed Vital Signs Vital Sign Reading Time Taken Comments Blood Pressure 112/77 01/25/2025 9:05 AM CDT Pulse 72 01/25/2025 9:05 AM CDT Temperature 36 C (96.8 F) 01/25/2025 9:05 AM CDT Respiratory Rate 18 01/25/2025 9:05 AM CDT Oxygen Saturation 99% 01/25/2025 9:05 AM CDT Inhaled Oxygen Concentration - - Weight 74.4 kg (164 lb) 01/25/2025 9:05 AM CDT Height 160 cm (5' 3 ) 01/25/2025 9:05 AM CDT Body Mass Index 29.05 01/25/2025 9:05 AM CDT Plan of Treatment Not on file Medical Devices Implanted Type Area Patient Service Representative Device Identifier Shelf Expiration Date Model / Serial / Lot Mirena Iud Vagina Procedures Procedure Name Priority Date/Time Associated Diagnosis Comments US TRANSFER OF OUTSIDE FILMS Routine 02/24/2025 8:05 AM CDT PULMONARY FUNCTION TEST (PFT) Routine 01/25/2025 9:59 AM CDT Moderate persistent asthma, unspecified whether complicated COLONOSCOPY 11/13/2021 1:25 PM ASSURANCE AUDITOR from Last 3 Months or Most Recently Relevant to Health Maintenance Results * US Outside Reference (02/24/2025 8:05 AM CDT) Impressions [facility] - 02/24/2025 8:05 AM CDT These images are for Reference purposes only and have not been reviewed by [facility] Radiology. There will be no report generated by a [facility] Radiologist. Narrative RAD_PACS_[facility] - 02/24/2025 8:05 AM CDT EXAMINATION: Images For Reference Purposes Only us Deny Tejeda III, MD IMG US PROCEDURES Fin al Result RAD_PACS_[facility] * Pulmonary Function Test - (01/25/2025 9:59 AM CDT) FVC PRE 2.86 L [facility] FVC %PRE PRED 97 % [facility] FVC POST 3.12 L [facility] FVC %POST PRED 106 % [facility] FEV1 PRE 2.00 L [facility] FEV1 %PRE PRED 83 % [facility] FEV1 POST 2.20 L [facility] FEV1 %POST PRED 92 % [facility] FEV1/FVC PRE 69.9 % [facility] FEV1/FVC POST 70.5 % [facility] Anatomical Region Laterality Modality PFT 01/25/2025 9:42 AM CDT Impressions 01/25/2025 2:31 PM CDT There is no ventilatory defect. Compared with study dated 04.05.2024 , there has been no significant interval change. The attending pulmonary physician certifies a physician presence in the [facility] during the administration of aerosolized bronchodilator. The attending pulmonary physician certifies that he/she has reviewed and interpreted the graphic and numerical data of this pulmonary function study and agrees with the written final report. The lower limit of normal for PO2 and %HbO2 is age dependent. However, the [facility] Pulmonary Function Laboratory defines hypoxemia as a PO2 <55 or a %HbO2 <89. Starting on October 2024 the [facility] Pulmonary Function Laboratory utilizes race neutral GLI Global normative equations. Narrative 01/25/2025 2:31 PM CDT PFT performed at:->[facility] Adult PFT Lab- [facility] Procedure:->Spirometry with Bronchodilator Pulmonary Function Test Interpretation SPIROMETRY: There is a decrease in expiratory airflow at middle lung volumes. The FEVI and FVC are normal. There is no significant improvement after inhaling a single nebulized dose of albuterol. Current bronchodilator treatment may reduce the response to the bronchodilator administered in the laboratory. FLOW VOLUME LOOPS: The inspiratory loop is normal. us Santos Person MD PFT ORDERABLES Final Res ult * COLONOSCOPY (11/13/2021 1:25 PM ASSURANCE AUDITOR) Anatomical Region Laterality Modality Other Narrative Procedure Note Dat Meeks MD PhD - 11/13/2021 1:25 PM CST ENDOSCOPY LAB Patient Name: Disha Koehler Procedure Date: 11/13/2021 1:25 PM Date of : 1970 Admit Type: Outpatient Age: 50 Gender: Female Attending MD: Dat Meeks MD,PHD Room: [facility] ENDOSCOPY ROOM 02 Note Status: [...] The scope was passed under direct vision.The [id number] was introduced through the anusand advanced to [...] During normal business hours - [facility] [place]: [phone]. After hours, evening, nights, weekends and holidays- Please call the hospital sueding and buffing machine operator at and ask for the GI fellow manager communication. Attending Participation: I personally performed the entire procedure. Electronically signed by Dat Meeks MD. Dat Meeks MD, PHD 11/13/2021 1:52:18 PM Number of Addenda: 0 Note Initiated On: 11/13/2021 1:25 PM us Dat Meeks MD PhD ENDOSCOPY PROCEDURES Cande l Result from Last 3 Months or Most Recently Relevant to Health Maintenance Insurance [facility] [employer] [facility] [employer]O Address: [address] [address] [address] [facility] CHOICE PLUS [facility] [employer]/PPO Address: [address] [address] [place] [address] [facility] [employer] [facility] [employer]/PPO Address: [address] [address] [place] [address] Advance Directives For more information, please contact: [phone] * Full Code (Latest Code Status on File) Date Activated Date Inactivated Comments 11/13/2021 11:40 AM 11/13/2021 6:40 PM * Full Code Date Activated Date Inactivated Comments 01/12/2019 9:25 AM 01/12/2019 5:31 PM Care Teams Wire Fence Builder Relationship Specialty Start Date End Date [place] Pollock MD PCP - General 10/30/17 Lizandro Colón 06/11/18 Fany Davis NP [address] [place] [address] Nurse Practitioner Obstetrics and Gynecology 02/15/25
--- OUTSIDE RECORDS SUMMARY | 2025-02-25 15:53 | XMS_ITS | Encounter Summary ---
Author Organization [facility] Address [address] [place] [address] Phone Care Team Providers Care Huc Name Role Phone [place] Pollock MD Primary Care Provider [phone] Lizandro Colón Unavailable Unavailable Fany Davis MANAGER CASE Unavailable [phone] Encounter Details Date Type Department Care Team [...] on file Legal Sex Female 2:03 AM COVER REMOVER Gender Identity Female 01/31/2021 3:51 PM CDT [...] on filedocumented in this encounter Care Teams Huc Relationship Specialty Start Date End Date [place] Pollock MD PCP - General 10/30/17 Lizandro Colón 06/11/18 Fany Davis NP [address] [place] [address] Nurse Practitioner Obstetrics and Gynecology 02/15/25 documented as of this encounter
--- OUTSIDE RECORDS SUMMARY | 2025-02-25 15:53 | XMS_ITS | Encounter Summary ---
Author Organization [facility] Address [address] [place] [address] Care Team Providers Care Embosser Apprentice Name Role Phone [place] Pollock MD Primary Care Provider [phone] Lizandro Colón Unavailable Unavailable Fany Davis SUPERVISOR MOLD SHOP Unavailable [phone] Encounter Details Date Type Department Care Team (Latest Contact Info) Description 02/24/2025 8:05 AM CDT - 02/24/2025 11:59 PM CDT Hospital Encounter [facility] [address] [place] [id number] Arrived Discharge Disposition: Discharge to home or self care Social History Tobacco Use Types Packs/Day Years [...] on file Legal Sex Female 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 Gender Identity Female 01/31/2021 3:51 PM CDT Sexual Orientation Straight 01/31/2021 3: 51 PM CDT 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 Not on file Not on file Not on file documented as of this encounter Medications at Time of Discharge Airsupra 90-80 mcg/actuation HFA aerosol inhaler INHALE 2 PUFFS BY MOUTH 6 TIMES PER DAY NEEDED FOR SHORTNESS OF BREATH 12/24/2024 cetirizine 10 mg capsule Take 10 mg by mouth nightly 30 capsule 6 01/25/2025 cholecalciferol (VITAMIN D-3) 5,000 unit capsule Take 1 capsule (5,000 Units total) by mouth daily esomeprazole DR (NexIUM) 20 mg capsule Take 1 capsule (20 mg total) by mouth daily 90 capsule 02/02/2025 estradioL (VIVELLE-DOT) 0.0375 mg/24 hr 08/30/2024 halobetasol (ULTRAVATE) 0.05 % cream APPLY TO RIGHT ELBOW RASH TWICE DAILY DIRECTED 08/27/2021 hydrocortisone 2.5 % ointment APPLY TOPICALLY TO FACE RASH TWICE DAILY FOR 2 WEEKS NEEDED FOR FLARES 01/17/2025 ibuprofen (ADVIL,MOTRIN) 800 mg tablet TAKE 1 TABLET BY MOUTH THREE TIMES DAILY FOR 7 DAYS NEEDED FOR PAIN 11/01/2024 Lactobacillus acidophilus (PROBIOTIC ORAL) Take by mouth levonorgestreL (MIRENA) IUD by intrauterine route. DIRECTED loratadine (CLARITIN) 10 mg tablet Take 1 tablet (10 mg total) by mouth daily 30 tablet 11 07/16/2024 metoprolol tartrate (LOPRESSOR) 25 mg immediate release tablet Take 0.5 tablets (12.5 mg total) by mouth 2 (two) times a day 30 tablet 11 01/08/2023 mometasone-formot bushra (DULERA 100) 100-5 mcg/actuation inhaler 1 puff twice daily and as needed. Rinse mouth with water after use. Do not swallow. 1 each 07/16/2024 multivitamin with iron tablet Take 1 tablet by mouth daily documented as of this encounter Discharge Disposition Disposition Code Departure Means Destination Discharge to home or self care documented in this encounter Plan of Treatment Not on file documented as of this encounter Procedures Procedure Name Priority Date/Time Associated Diagnosis Comments US TRANSFER OF OUTSIDE FILMS Routine 02/24/2025 8:05 AM CDT documented in this encounter Results * US Outside Reference (02/24/2025 8:05 AM CDT) Impressions RAD_PACS[facility] - 02/24/2025 8:05 AM CDT These images are for Reference purposes only and have not been reviewed by [facility] Radiology. There will be no report generated by a [facility] Radiologist. Narrative RAD_PACS[facility] - 02/24/2025 8:05 AM CDT EXAMINATION: Images For Reference Purposes Only us Deny Tejeda III, MD IMG US PROCEDURES Fin al Result RAD_PACS[facility] documented in this encounter Visit Diagnoses Not on filedocumented in this encounter Care Teams Embosser Apprentice Relationship Specialty Start Date End Date [place] Pollock MD PCP - General 10/30/17 Lizandro Colón 06/11/18 Fany Davis NP [address] [place] [address] Nurse Practitioner Obstetrics and Gynecology 02/15/25 documented as of this encounter
--- OUTSIDE RECORDS SUMMARY | 2025-02-25 15:53 | XMS_ITS | Encounter Summary ---
Author Organization [facility] Address [address] [place] [address] Care Team Providers Care Grab Driver Name Role Phone Unavailable Primary Care Provider Unavailabl e Encounter Details Date Type Department Care Team (Late st Contact Info) Description 06/23/2019 Lab Requisition [facility] DermPath Lab [address] [facility] [place] [address] Arnol Hicks MD [address] [place] [address] Social History Tobacco Use Types [...] AM CDT) Case Report Dermatopathology Report Case: [id number] Authorizing Provider: Arnol Hicks MD Collected: 06/22/2019 12:00 AM Ordering Location: [facility] DermPath Lab Received: 06/23/2019 01:48 PM Pathologist: Ren Martins MD Specimen: Skin, right lateral mid thigh 9 4:57 PM CDT DERMATOPATHOLOGY LABORATORY Final Diagnosis Specimen A. SKIN, right lateral mid thigh: LENTIGINOUS MELANOCYTIC NEVUS, JUNCTIONAL TYPE, IRRITATED (JUNCTIONAL MELANOCYTIC NEVUS WITH ARCHITECTURAL DISORDER) (D22.71) 9 4:57 PM CDT DERMATOPATHOLOGY LABORATORY at 1657 CDT Clinical History R/O dys nevus 4:57 PM [...] characteristic determined by the Dermatopathology Laboratory at [facility], directed by Dr. Suzette Martins. These tests need not be, and therefore are not, approved by the [place] Food and Drug Administration. The tests are used for clinical purposes. Billing Codes Specimen Charges Stain Charges 48971 1 4:57 PM CDT DERMATOPATHOLOGY LABORATORY Embedded Images 4:57 PM CDT DERMATOPATHOLOGY LABORATORY Pathology/Cytolog y TISSUE SPECIMEN FROM SKIN / Unknown 06/22/2019 06/23/2019 1:48 PM CDT us Arnol Hicks MD LAB - PATHOLOGY/CYTOLOGY ORD ERABLES Final Result DERMATOPATHOLOGY LABORATORY [facility] - Department of Dermatology [address] [facility] [place] [address], [facility] [phone] documented in this encounter Visit Diagnoses Not on filedocumented in this encounter
--- OUTSIDE RECORDS SUMMARY | 2025-02-25 15:53 | XMS_ITS | Encounter Summary ---
Author Organization [facility] Address [address] [facility] [place] [address] Care Team Providers Care Net Development Manager Name Role Phone Unavailable Primary Care Provider Unavailabl e Encounter Details Date Type Department Care Team (Late st Contact Info) Description 01/22/2023 Lab Requisition [facility] [address] [place] [id number] Arnol Hicks MD [address] [place] [address] Social History Tobacco Use Types [...] AM CDT) Case Report Dermatopathology Report Case: [id number] Authorizing Provider: Arnol Hicks MD Collected: 01/21/2023 12:00 AM Ordering Location: [facility] Received: 01/22/2023 02:04 PM Pathologist: Ren Martins MD Specimen: Skin, posterior lateral right shoulder 6:33 PM CDT DERMATOPATHOLOGY LABORATORY Final Diagnosis Specimen A. SKIN, posterior lateral right shoulder: SEBORRHEIC KERATOSIS, IRRITATED AND INFLAMED (L82.0) 6:33 PM CDT DERMATOPATHOLOGY LABORATORY at 1833 CDT Clinical History R/O SCC, ISK, BCC 3 6:33 PM CDT DERMATOPATHOLOGY LABORATORY Gross Description Specimen A: Received is one formalin filled container labeled with the patient's name and designated posterior lateral right shoulder. The specimen consists of a shave biopsy measuring [id number] mm. Jar 0. 3 6:33 PM CDT [...] characteristic determined by the Dermatopathology Laboratory at [facility], directed by Dr. Suzette Martins. These tests need not be, and therefore are not, approved by the [place] Food and Drug Administration. The tests are used for clinical purposes. Billing Codes Specimen Charges Stain Charges 60189 1 3 6:33 PM CDT DERMATOPATHOLOGY LABORATORY Embedded Images 3 6:33 PM CDT DERMATOPATHOLOGY LABORATORY Pathology/Cytolog y TISSUE SPECIMEN FROM SKIN / Unknown 01/21/2023 01/22/2023 2:04 PM CDT Arnol Hicks MD LAB - PATHOLOGY/CYTOLOGY ORD ERABLES Final Result DERMATOPATHOLOGY LABORATORY [facility] - Department of Dermatology [address] [place] [address], [facility] [phone] documented in this encounter Visit Diagnoses Not on filedocumented in this encounter
--- OUTSIDE RECORDS SUMMARY | 2025-02-25 15:53 | XMS_ITS | Encounter Summary ---
Author Organization [facility] Address [address] [place] [address] Care Team Providers Care Stereotyper Helper Name Role Phone Unavailable Primary Care Provider Unavailabl e Encounter Details Date Type Department Care Team (Late st Contact Info) Description 08/13/2023 Lab Requisition [facility] - DermPath Lab [address] [place] [id number] Arnol Hicks MD [address] [place] [id number] Social History Tobacco Use Types Packs/Day Years [...] Diagnosis Comments DERMATOPATHOLOGY Routine 08/12/2023 3:33 AM SEWER LINE PHOTO INSPECTOR documented in this encounter Results * DERMATOPATHOLOGY (08/12/2023 3:33 AM SEWER LINE PHOTO INSPECTOR) Case Report Dermatopathology Report Case: [id number] Authorizing Provider: Arnol Hicks MD Collected: 08/12/2023 03:33 AM Ordering Location: [facility] DermPath Lab Received: 08/13/2023 03:18 PM Pathologist: Josie Wallace MD Specimens: A) - Skin, right upper chest below clavicle B) - Skin, left med breast sup 3 1:47 PM SEWER LINE PHOTO INSPECTOR DERMATOPATHOLOGY LABORATORY Final Diagnosis Specimen A. SKIN, right upper chest below clavicle: LICHEN PLANUS-LIKE KERATOSIS (BENIGN LICHENOID KERATOSIS) , END STAGE (L82.1) Specimen B. SKIN, left med breast sup: LICHEN PLANUS-LIKE KERATOSIS (BENIGN LICHENOID KERATOSIS) (L82.1) 3 1:47 PM [facility] DERMATOPATHOLOGY LABORATORY at [address] SEWER LINE PHOTO INSPECTOR Clinical History R/O SCC vs BCC vs LPLK 3 1:47 PM [facility] DERMATOPATHOLOGY LABORATORY Gross Description Specimen A: [...] 9x6x1 mm. Jar 0. 3 1:47 PM [facility] DERMATOPATHOLOGY LABORATORY Microscopic Description Specimen A. [...] and scattered necrotic keratinocytes. 3 1:47 PM [facility] DERMATOPATHOLOGY LABORATORY Disclaimer An external and internal positive and negative controls are appropriate for the histochemical, immunohistochemical and immunofluorescence stain(s) in this case (if any), except where stated explicitly. The performance characteristics of the stain(s) cited in this report were developed and its performance characteristic determined by the Dermatopathology Laboratory at [facility], directed by Dr. Suzette Martins. These tests need not be, and therefore are not, approved by the [place] Food and Drug Administration. The tests are used for clinical purposes. Billing Codes Specimen Charges Stain Charges 82495 02411 1 1 3 1:47 PM [facility] DERMATOPATHOLOGY LABORATORY Embedded Images 3 1:47 PM [facility] DERMATOPATHOLOGY LABORATORY Pathology/Cytology TISSUE SPECIMEN FROM SKIN / Unknown 08/12/2023 3:33 AM SEWER LINE PHOTO INSPECTOR 08/13/2023 3:18 PM SEWER LINE PHOTO INSPECTOR Miscellaneous samples (specimen) TISSUE SPECIMEN FROM SKIN / Unknown 08/12/2023 3:33 AM SEWER LINE PHOTO INSPECTOR 08/13/2023 3:18 PM SEWER LINE PHOTO INSPECTOR us Arnol Hicks MD LAB - PATHOLOGY/CYTOLOGY ORD ERABLES Final Result DERMATOPATHOLOGY LABORATORY [facility] - Department of Dermatology [facility] [address] [place] [address], [address] [place] [address], [facility] [phone] documented in this encounter Visit Diagnoses Not on filedocumented in this encounter
--- OUTSIDE RECORDS SUMMARY | 2025-02-25 15:53 | XMS_ITS | Clinical Summary ---
Author Organization [facility] Address [address] [place] [address] Care Team Providers Care Collection Technician Name Role Phone Unavailable Primary Care Provider Unavailabl e Source Comments [facility],non-owned Affiliates and Associated Physician Practices is amultiple site organization consisting of ambulatory clinics and hospital sitesin [place], [place], [place] and [place]. This disclosure is being madepursuant to the Care Everywhere program and may not contain all information available regarding this patient. Last updated 18.[facility] Social History Tobacco Use Types Packs/Day Years [...] VACCINE (1 - 2023-2 5 season) 2024 DEPRESSION SCREENING 10/06/2024 INFLUENZA VACCINE (Season Ended) 2025 HIB VACCINE Aged Out No longer eligi ble based on patient's age to complete this topic HPV VACCINE Aged Out No longer eligi ble based on patient's age to complete this topic MENINGOCOCCAL (Group B) VACC INE SHARED DECISION-MAKING Aged Out No longer eligibl e based on patient's age to complete this topic MENINGOCOCCAL GROUPS A/C/Y/W VACCINE Aged Out No longer eligible b ased on patient's age to complete this topic Insurance [facility] [place] [address] [facility] Member Subscriber Plan / Payer ( fective 2014-) Name:Disha Schwarz Relation to Subscriber:Self Name:DISHA SCHWARZ Payer ID:[id number] ([employer]) Type:O Address: [address] Member Subscriber Plan / Payer ( fective 2014-) Name:Dihsa Schwarz Relation to Subscriber:Self Name:DISHA SCHWARZ Payer ID:[id number] ([facility]) Type:[employer] Address: [address]
--- OUTSIDE RECORDS SUMMARY | 2025-02-25 15:53 | XMS_ITS | Encounter Summary ---
Author Organization [facility] Address [address] [facility] [place] [address] Care Team Providers Care Flatbed Company Driver Name Role Phone Unavailable Primary Care Provider Unavailabl e Encounter Details Date Type Department Care Team (Late st Contact Info) Description 10/12/2021 Lab Requisition [facility] DermPath Lab [address] [place] [phone] Arnol Hicks MD [address] [place] [address] Social History Tobacco Use Types [...] Comments DERMATOPATHOLOGY Routine 10/10/2021 12:0 0 AM ROLL TUBE SETTER documented in this encounter Results * DERMATOPATHOLOGY (10/10/2021 12:00 AM ROLL TUBE SETTER) Case Report Dermatopathology Report Case: [id number] Authorizing Provider: Arnol Hicks MD Collected: 10/10/2021 12:00 AM Ordering Location: [facility] DermPath Lab Received: 10/12/2021 12:31 PM Pathologist: Jael Vega MD Specimen: Skin, right lateral abdomen 12:09 PM ROLL TUBE SETTER DERMATOPATHOLOGY LABORATORY Final Diagnosis Specimen A. SKIN, right lateral abdomen: LENTIGINOUS MELANOCYTIC NEVUS, JUNCTIONAL TYPE, IRRITATED (JUNCTIONAL MELANOCYTIC NEVUS WITH ARCHITECTURAL DISORDER) (D22.5) POST-INFLAMMATORY PIGMENT ALTERATION (L81.9) NOT PRESENT AT SAMPLED MARGIN 12:09 PM [facility] DERMATOPATHOLOGY LABORATORY at [address] ROLL TUBE SETTER Clinical History R/O dysplasia nevus. Check margins. 12:09 PM [facility] DERMATOPATHOLOGY LABORATORY Gross Description Specimen A: Received is one formalin filled container labeled with the patients name and designated right lateral abdomen. The specimen consists of a shave removal measuring 9i0x6ur. The margin is inked green. Jar 0. 12:09 PM [facility] DERMATOPATHOLOGY LABORATORY Microscopic Description Specimen [...] sampled margin of the specimen. 12:09 PM [facility] DERMATOPATHOLOGY LABORATORY Disclaimer An external and internal positive and negative controls are appropriate for the histochemical, immunohistochemical and immunofluorescence stain(s) in this case (if any), except where stated explicitly. The performance characteristics of the stain(s) cited in this report were developed and its performance characteristic determined by the Dermatopathology Laboratory at [facility], directed by Dr. Suzette Martins. These tests need not be, and therefore are not, approved by the [place] Food and Drug Administration. The tests are used for clinical purposes. Billing Codes Specimen Charges Stain Charges 25743 1 2 12:09 PM [facility] DERMATOPATHOLOGY LABORATORY Embedded Images 12:09 PM [facility] DERMATOPATHOLOGY LABORATORY Pathology/Cytolog y TISSUE SPECIMEN FROM SKIN / Unknown 10/10/2021 10/12/2021 12:31 PM [facility] us Arnol Hicks MD LAB - PATHOLOGY/CYTOLOGY ORD ERABLES Final Result DERMATOPATHOLOGY LABORATORY [facility] - Department of Dermatology [address] Floor [place], [place] [id number] [place] [address] documented in this encounter Visit Diagnoses Not on filedocumented in this encounter
--- OUTSIDE RECORDS SUMMARY | 2025-02-25 15:53 | XMS_ITS | Clinical Summary ---
Author Organization [facility] Address [address] [place] [address] Care Team Providers Care Drag Down Name Role Phone Bryan Pollock MD Primary Care Provider [phone] Lizandro Colón Unavailable Unavailable Fany Davis PSYCHIATRIC SECURITY NURSE Unavailable [phone] Allergies Active Allergy Reactions Criticality Noted Date [...] not swallow. 1 each 11 4 Active Airsupra 90-80 mcg/actuation HFA aerosol [...] we would recommend that she follow-up with obstetrics gyn and consider a CT scan of the abdomen and pelvis. Ulcerative proctitis with complication 12/04/2018 01/14/2025 Overview (12/04/2018): Added automatically from request for surgery [id number] Hematochezia 03/13/2018 01/25/2025 Proctitis 12/10/2017 01/25/2025 Hematochezia 10/16/2017 01/25/2025 Episodic tension-type headache 12/17/2016 01/25/2025 Migraine without aura and re sponsive to treatment 03/28/2016 01/25/2025 Sprain of medial collateral ligament of knee 4 01/25/2025 Knee pain 04/20/2014 01/25/2025 Disorder of ovary 03/31/2013 01/25/2025 Pain of foot 11/30/2012 01/25/2025 Encounters Date Type Department Care Team Description 02/24/2025 8:05 AM CDT - 02/24/2025 11:59 PM CDT Hospital Encounter [facility] [address] [place] [address] Arrived Discharge Disposition: Discharge to home or self care 02/16/2025 Telephone [facility] [address] [place] [address] Outpatient Health 3rd Floor [address] [place] [address] Tiara Wallace Appointment 02/15/2025 Telephone [facility] ([facility]) - [facility] Minimally Invasive Surgery [address] [facility] Advanced Medicine 12th Floor, [place] [address] Faviola Oneil 01/31/2025 Documentation [facility] Gastroenterology [facility] Advanced Medicine 12th [place] [address] [place] [address] Qiana Lentz RN 01/25/2025 9:00 AM CDT Office Visit [facility]monary [address] [facility] 8th [place] [address] [place] [address] Dionna Melo NP Moderate persistent asthma without complication (Primary Dx); Shortness of breath on exertion; Seasonal allergies; Gastroesophageal reflux disease without esophagitis; Immunization counseling 01/25/2025 8:15 AM CDT - 01/25/2025 11:59 PM CDT Hospital Encounter [facility] [address] [facility] [address] [place] [address] Moderate persistent asthma, unspecified whether complicated Discharge Disposition: Discharge to home or self care 01/19/2025 Telephone [facility] [address] [facility] 8th [place] [address] [place] [address] Omar Mckenzie, SUSHMA 01/18/2025 Telephone [facility] 8th [place] [address] [place] [address] Omar Mckenzie RN 01/14/2025 11:30 AM CDT Office Visit [facility] Gastroenterology [address] [facility] 12th [place] [address] [place] [address] Lorena Kaye, MARTITA History of proctitis (Primary Dx); Abdominal pain; Alopecia from Last 3 Months Immunizations Immunization Administration Dates Next Due Influenza, Trivalent, Cell C ulture-based MDCK, Preservative Free, Antibiotic Free, Intramuscular 08/10/2024 Influenza, Unspecified 07/21/2023 Surgical History Surgery Date Site/Laterality Comments LYMPH NODE BIOPSY 10/06/2008 - 10/05/2009 KNEE ARTHROSCOPY W/ ACL RECONSTRUCTION 10/06/2013 - 10/05/2014 Left MOHS SURGERY 10/06/2014 - 10/05/2015 Right melanotic proliferation ear Medical History Medical History Date Comments Joint pain Dysphagia Ulcerative colitis (HCC) Asthma Chronic bronchitis (HCC) Migraines COVID-19 virus detected 07/2020 Psoriasis Hematochezia 03/13/2018 Pelvic pain 04/24/2023 Pain, pelvic, female 04/24/2023 Abdominal pain 01/14/2025 Hematochezia 10/16/2017 Migraine without aura and responsive to treatmen t 03/28/2016 Proctitis 12/10/2017 Pain of foot 11/30/2012 Sprain of medial collateral ligament of knee Episodic tension-type headache 12/17/2016 Knee pain 04/20/2014 Disorder of ovary 03/31/2013 Family History Medical History Relation Name Comments [...] on file Legal Sex Female 2:03 AM 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 Gender Identity Female 01/31/2021 3:51 PM CDT Sexual Orientation Straight 01/31/2021 3: 51 PM CDT 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 on file Not on file Not [...] 01/25/2025 9:05 AM CDT Plan of Treatment Health Maintenance Due Date Last Done Comments Breast Cancer Screening-Mammogram 1970 Cervical Cancer Screening 1970 Depression Screening 1970 Hepatitis C Screening 1970 DTaP/Tdap/Td Vaccine (1 - Tdap) 1981 Hepatitis B Screening 1988 Regular Well Visit/Exam 18-64 1988 Pneumococcal vaccine <65 (1 of 2 - PCV) 1989 Zoster Vaccine (1 of 2) 2020 Covid-19 Vaccine (4 - season) 2024 09/26/2021, 11/14/2020, 10/26/2020 Colon Cancer Screening-Colonoscopy 11/13/20312021, 12/02/2017 Influenza Vaccine Completed 08/10/2024, 07/21/2023 Medical Devices Implanted Type Area Animal Control Licensing Worker Device Identifier Shelf Expiration Date Model / Serial / Lot Mirena Iud Vagina Procedures Procedure Name Priority Date/Time Associated Diagnosis Comments US TRANSFER OF OUTSIDE FILMS Routine 02/24/2025 8:05 AM CDT PULMONARY FUNCTION TEST (PFT) Routine 01/25/2025 9:59 AM CDT Moderate persistent asthma, unspecified whether complicated COLONOSCOPY 11/13/2021 1:25 PM 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 from Last 3 Months or Most Recently Relevant to Health Maintenance Results * US Outside Reference (02/24/2025 8:05 AM CDT) Impressions [facility] - 02/24/2025 8:05 AM CDT These images are for Reference purposes only and have not been reviewed by [facility]. There will be no report generated by a [facility] Radiologist. Narrative [facility] - 02/24/2025 8:05 AM CDT EXAMINATION: Images For Reference Purposes Only us MD AGNIESZKA Camacho III US PROCEDURES Fin al Result [facility] * Pulmonary Function Test - (01/25/2025 9:59 AM CDT) FVC PRE 2.86 L [facility] FVC %PRE PRED 97 % [facility] FVC POST 3.12 L [facility] FVC %POST PRED 106 % [facility] FEV1 PRE 2.00 L [facility] FEV1 %PRE PRED 83 % [facility] FEV1 POST 2.20 L [facility] FEV1 %POST PRED 92 % [facility] FEV1/FVC PRE 69.9 % [facility] FEV1/FVC POST 70.5 % [facility] [...] and %HbO2 is age dependent. However, the [facility] Pulmonary Function Laboratory defines hypoxemia as a PO2 <55 or a %HbO2 <89. Starting on October 2024 the [facility] Pulmonary Function Laboratory utilizes race neutral GLI Global normative equations. Narrative 01/25/2025 2:31 PM CDT PFT performed at:->[facility] Adult PFT [facility]- [facility] Procedure:->Spirometry with Bronchodilator [...] Res ult * COLONOSCOPY (11/13/2021 1:25 PM 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) Anatomical Region Laterality Modality Other Narrative Procedure Note Dat Meeks MD PhD - 11/13/2021 1:25 PM CST ENDOSCOPY LAB Patient Name: Disha Koehler Procedure Date: 11/13/2021 1:25 PM Date of : 1970 Admit Type: Outpatient Age: 50 Gender: Female Attending MD: Dat Meeks MD,PHD Room: [facility] ENDOSCOPY ROOM 02 Note Status: Finalized [...] The scope was passed under direct vision.The [id number] was introduced through the anusand advanced to [...] During normal business hours - [facility] [place] [place] Coord[facility]: [phone]. After hours, evening, nights, weekends and holidays- Please call the hospital cryptologic technician operator/analyst at and ask for the GI fellow customer consultant. Attending Participation: I personally performed the entire procedure. Electronically signed by Dat Meeks MD. Dat Meeks MD, PHD 11/13/2021 1:52:18 PM Number of Addenda: 0 Note Initiated On: 11/13/2021 1:25 PM us Dat Meeks MD PhD ENDOSCOPY PROCEDURES Cande l Result from Last 3 Months or Most Recently Relevant to Health Maintenance Insurance [employer] [facility] CHOICE PLUS [employer] Advance Directives For more information, please contact: [phone] * Full Code (Latest Code Status on File) Date Activated Date Inactivated Comments 11/13/2021 11:40 AM 11/13/2021 6:40 PM * Full Code Date Activated Date Inactivated Comments 01/12/2019 9:25 AM 01/12/2019 5:31 PM Care Teams Drag Down Relationship Specialty Start Date End Date Bryan Pollock MD PCP - General 10/30/17 Lizandro Colón 06/11/18 Fany Davis NP [address] [place] [address] Nurse Practitioner Obstetrics and Gynecology 02/15/25
--- OUTSIDE RECORDS SUMMARY | 2025-02-25 15:53 | XMS_ITS | Clinical Summary ---
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 Phone Bryan Pollock MD Primary Care Provider [phone] Social History Tobacco Use Types Packs/Day Years [...] of 3 - 19+ 3-dose series) 1989 HPV/Cotest (21-29) 1991 HPV/Cotest (30-65) 2000 BREAST CANCER SCREENING 2010 FIT-DNA Q 3 years 2015 FIT/FOBT Q 1 year 2015 ZOSTER VACCINE (1 of 2) 2020 Flex Sig/CT Colonography Q 5 years 01/13/20242018 INFLUENZA VACCINE (#1) 2024 CERVICAL CANCER SCREENING 08/03/2024 PAP SMEAR 08/03/2024 08/03/2021 COLORECTAL SCREENING 11/13/2031 11/13/2021, 01/13/20 19 Colorectal Cancer Screening 11/13/2031 Care Teams 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 [address] PCP - General Family Practice 12/23/22
== END 2025-02-25 15:49 | disposition home or self-care (01) ==
PROVIDERS: PCP Family Medicine; Visit Provider Physician Assistant
DX: R59.0 Localized enlarged lymph nodes (principal)
CPT/HCPCS: 71046

== ENCOUNTER 2025-03-04 09:26 | Outpatient (CLI) | payer OTHER, SELFPAY ==
--- NOTE | ~2025-03-04 | MM_ITS ---
EXAMINATION: MM diagnostic warner BI w josé miguel HISTORY: Enlarged axillary lymph nodes TECHNIQUE: Additional 3-D tomosynthesis images of the breasts were performed and synthetic 2-D images were generated. CAD analysis was submitted and interpreted. COMPARISON: Comparison to multiple prior studies sequentially, with oldest reviewed study dated 12/14. BREAST PARENCHYMAL COMPOSITION: Not dense: There are scattered areas of fibroglandular density. FINDINGS: The breasts are stable. There are no suspicious masses, calcifications or architectural dis tortion in either breast to suggest malignancy. IMPRESSION: 1. No mammographic evidence for malignancy in either breast. 2. Routine yearly screening mammogram and regular clinical breast examination are recommended. BI-RADS Category 1: Negative Reviewed, dictated and finalized at location A. IMPRESSION: 1. No mammographic evidence for malignancy in either breast. 2. Routine yearly screening mammogram and regular clinical breast examination a re recommended. BI-RADS Category 1: Negative
== END 2025-03-04 09:27 | disposition home or self-care (01) ==
LOC: MICIMG 09:28
PROVIDERS: PCP Family Medicine; Visit Provider Nurse Practitioner
DX: R59.0 Localized enlarged lymph nodes (principal)
CPT/HCPCS: 77062; 77066; G0279